=== PATIENT | male | born 1945 | race Caucasian/White ===

== ENCOUNTER 2017-03-15 19:58 | Emergency (ER) | payer MEDICARE, BC ==
[2017-03-15 20:05] VITALS: BP 141/82
--- NOTE | 2017-03-15 20:10 | UC ---
Minor Trauma HPI - HPI Summary HPI Summary: 71 year old male presents with complains of right elbow pain and right hip pain post fall. - History of Current Complaint Chief Complaint: UCTrauma Stated Complaint: ARM AND HIP INJURY Time Seen by Provider: 03/15/17 20:07 Hx Obtained From: Patient Onset/Duration: Sudden Onset Onset Of Pain: Immediate Severity Initially: Moderate Severity Currently: Moderate Pain Scale Used: 0-10 Numeric - 8 - Allergies/Home Medications Allergies/Adverse Reactions: Allergies Allergy/AdvReac Type Severity Reaction Status Date / Time No Known Allergies Allergy Verified 03/15/17 20:05 PMH/Surg Hx/FS Hx/Imm Hx Previously Healthy: Yes - Social History Alcohol Use: Occasionally Substance Use Type: None Smoking Status (MU): Never Smoked Tobacco Review of Systems Constitutional: Negative Skin: Negative Eyes: Negative ENT: Negative Respiratory: Negative Cardiovascular: Negative Gastrointestinal: Negative Genitourinary: Negative Motor: Negative Neurovascular: Negative Musculoskeletal: Other: - right elbow and right hip pain Neurological: Negative Psychological: Negative All Other Systems Reviewed And Are Negative: Yes Physical Exam Triage Information Reviewed: Yes Vital Signs: Initial Vital Signs Temp 37.1 C 03/15/17 20:02 Pulse 83 03/15/17 20:02 Resp 18 03/15/17 20:02 BP 141/82 03/15/17 20:02 Pulse Ox 99 03/15/17 20:02 Vital Signs Reviewed: Yes Eye Exam: Normal ENT Exam: Normal Dental Exam: Normal Neck exam: Normal Neck: Positive: 1 Respiratory Exam: Normal Cardiovascular Exam: Normal Abdominal Exam: Normal Musculoskeletal: Positive: Other: - right elbow and right hip pain Neurological Exam: Normal Psychological Exam: Normal Skin Exam: Normal Minor Trauma Course/Dx - Differential Dx/Diagnosis Provider Diagnoses: right radial head fracture. right hip pain Discharge - Discharge Plan Condition: Stable Disposition: HOME Prescriptions: Acetaminop/Codeine 30 MG TAB* [Tylenol/Codeine 30 MG TAB*] 1 tab PO Q8H PRN #9 tab MDD 3 PRN Reason: Pain Patient Education Materials: Elbow Fracture (ED), Hip Pain (ED) Referrals: Sivakumar Rashid MD [Primary Care Provider] - Cheko Velez MD [Medical Doctor] -
--- NOTE | 2017-03-15 20:58 | RAD ---
Indication: Right elbow pain after fall. 4 views of the right elbow demonstrates joint effusion in place. There is a fracture of the neck of the radial head. IMPRESSION: Fracture neck of the radial head with joint effusion.
--- NOTE | 2017-03-15 21:01 | RAD ---
Indication: Right hip pain. 2 views of the right hip demonstrates no fracture. Joint spaces well-preserved. IMPRESSION: No fracture of the right hip is noted.
== END 2017-03-15 21:32 | disposition home or self-care (01) ==
LOC: UCEAST 19:58
DX: S52.121A Displaced fracture of head of right radius, initial encounter for closed fracture (principal); M25.551 Pain in right hip; W19.XXXA Unspecified fall, initial encounter
CPT/HCPCS: 99212; G0463

== ENCOUNTER → 2017-09-22 08:13 | Day surgery (SDC) | payer MEDICARE, BC ==
[~2017-09-22 08:13] MED LIST: Aspirin EC TAB* 81 MG TAB.EC PO SCH; Atorvastatin* 10 MG TAB PO SCH; Fluticasone NASAL SPRAY 50MCG* 16 gm SPRAY BTL BOTH NARES SCH; Heparin 2 UNITS/ML IVPREMIX* 0 ML IV ONE; Heparin 2 UNITS/ML IVPREMIX* 1,000 ML IV ONE; Heparin(*) 1000 UNIT/ML 10 ML VIAL CATH LAB IV ONE; Ibuprofen TAB* 200 MG PO PRN; Iohexol 350 (CONTRAST) 200 ML MDV IV ONE; LOSARTAN POTASSIUM 25 MG PO SCH; Lidocaine 1% INJ* 10 MG/ML 30 ML SDV ONE; Midazolam* 1 MG/ML 10 ML VIAL (10 MG) ONE; NS 0.9% 1000 ML* 1,000 ML IV SCH; VERAPAMIL 2.5 MG/ML 2 ML VIAL ** 5 mg/2 ml ONE; WHEAT GERM OIL PO SCH; fentaNYL* 50 MCG/ML 2 ML VIAL (100 MCG VIAL) ONE; nitroGLYCERIN DRIP* 25,000 MCG/250 ML BTL ONE
[2017-09-22 13:12] VITALS: BP 101/76
--- NOTE | 2017-09-23 00:07 | CATH ---
CC: Dr. Lizette Miles; Dr. Sivakumar Rashid; Dr. Shekhar Bolanos MD, Department of Cardiovascular Surgery at [facility] in [place], [place] CARDIAC CATHETERIZATION REPORT: DATE OF PROCEDURE: 09/22/17 INDICATION FOR PROCEDURE: The patient with severe aortic stenosis, assess coronary anatomy in preparation for aortic valve surgery. PROCEDURE: Coronary arteriography. The patient was interviewed and examined in the holding area of the cardiac catheterization lab, where the risks and benefits were explained. He understood them and wished to proceed. The right radial artery was assessed under ultrasound guidance and found to be acceptable for an approach. EQUIPMENT UTILIZED: 1. A 6-Cymraes Glidesheath. 2. Diagnostic catheter, a 5-Cymraes TIG4 curve for the right coronary artery, left coronary artery was cannulated utilizing a 5-Cymraes 3.5 curve Ted left coronary diagnostic catheter. 3. Exchange wire, a 260-cm length Sandhu curved guidewire. MEDICATIONS: Given during the case included 1 mg of Versed for sedation. PRE-CATH LABORATORY RESULTS: Hemoglobin and hematocrit of 14 and 41 with a platelet count of 290,000. A BUN and creatinine of 16 and 0.9. INR of 0.9. Potassium 4.1. Sodium 136, chloride 100, bicarb 28. DESCRIPTION OF PROCEDURE: The patient was brought to the cardiovascular laboratory, where a formal time-out was performed. He was prepped and draped in a sterile fashion. The right radial artery was anesthetized with 1% lidocaine. The right radial artery was cannulated and a sheath was placed. Coronary arteriography was performed utilizing both the TIG4 curve and the JL 3.5 curve diagnostic catheter. Following this, the catheters were removed over the guidewire and the guidewire was removed and the sheath was removed and hemostasis was obtained with a Vasc Band. Total contrast used was 65 cc of Omnipaque dye. The radiation exposure included 7.1 minutes of fluoro time. The air kerma radiation was 633 milligray. The DAP radiation was 3616 microgray per metered square. RESULTS: CORONARY ARTERIOGRAPHY: A. Left Coronary Artery: 1. Left main. Widely patent. 2. Left anterior descending artery. The left anterior descending artery had no significant stenosis seen throughout the course of the vessel. Of note, it extended toward the apical region and became thin in nature in the distal portion and eventually go out by the apical region. It supplied a small first diagonal branch followed by a larger trifurcating mid diagonal branch. There was very mild 10% to 20% narrowing noted in its proximal portion. 3. Circumflex artery - a non-dominant vessel supplying a very thin first obtuse marginal branch followed by a moderate bifurcating mid obtuse marginal branch and ending in a low-lying posterior left ventricular branch. There were mild luminal irregularities noted in the proximal portion just past the bifurcating mid obtuse marginal branch. The circumflex had a narrowing of approximately 30% to 35%. B. Right coronary artery - a dominant vessel supplying the PDA and a small posterior left ventricular branch. There was a 40% mid lesion seen in the right coronary artery. OVERALL ASSESSMENT: Mild disease in the left system with [id number] disease in the mid right coronary artery as described above. This information was shared with Dr. Miles, the primary frame polisher involved with Mr. Spann and further recommendations will be made by Dr. Miles, who will be seeing the patient back in followup next week. [id number]/[facility] #: [id number] [facility]ITAL[facility]
== END | disposition home or self-care (01) ==
LOC: CHICATH 08:13
PROVIDERS: ATTEND Internal Medicine Cardiovascular Disease
DX: I35.0 Nonrheumatic aortic (valve) stenosis (principal); I25.10 Atherosclerotic heart disease of native coronary artery without angina pectoris; E78.2 Mixed hyperlipidemia; I10 Essential (primary) hypertension; Z87.891 Personal history of nicotine dependence
CPT/HCPCS: 76937; 93454; J1644; J2250; J3010

== ENCOUNTER 2017-11-17 11:02 | Observation (INO) | payer MEDICARE, BC ==
[2017-11-17] MEDS ORDERED: Acetaminophen TAB* 325 MG PO PRN (11:51)
[2017-11-17 12:17] LABS: ABS Basophils 0.1 10^3/ul (0-0.2); ABS Eosinophils 0.4 10^3/ul (0-0.6); ABS Lymphocytes 1.8 10^3/ul (1.0-4.8); ABS Nucleated RBC 0 10^3/ul; Eosinophil % 3.5 % (0-6); Hematocrit 40 % (42-52); Hemoglobin 13.8 g/dl (14.0-18.0); Lymphocyte % 17.8 % (25-47); Mean Corpuscular HGB Conc 34 g/dl (31-36); Mean Corpuscular Hemoglobin 31 pg (27-31); Mean Corpuscular Volume 92 fL (80-94); Mean Platelet Volume 7.3 um3 (7.4-10.4); Nucleated Red Blood Cells % 0; Platelet Count 357 10^3/ul (150-450); Red Blood Count 4.39 10^6/ul (4.00-5.40); Red Cell Distribution Width 14 % (10.5-15); White Blood Count 10.2 10^3/ul (3.5-10.8)
[2017-11-17 12:31] LABS: EGFR Non-African American 85.1 (>60)
[2017-11-17] MEDS: Enoxaparin(*) 80 MG/0.8 ML SYR SUBCUT SCH (13:59)
[2017-11-17] MEDS ORDERED: Warfarin TAB(*) 5 MG PO SCH (17:00)
[2017-11-17] MEDS ORDERED: HYDROcodone/ACETAMIN 5-325 MG* 1 TAB PO PRN (17:02)
[2017-11-17] MEDS ORDERED: Docusate CAP* 100 MG PO PRN (17:02)
[2017-11-17] MEDS ORDERED: Atorvastatin* 10 MG TAB PO SCH (21:00)
[2017-11-17] MEDS ORDERED: Losartan TAB* 25 MG PO SCH (21:00)
[2017-11-17] MEDS: Metoprolol Tartrate TAB* 25 MG PO SCH (22:16)
--- NOTE | 2017-11-18 01:30 | HP ---
CC: Sivakumar Rashid MD; Lizette Miles MD HISTORY AND PHYSICAL: DATE OF ADMISSION: 11/17/17 TIME OF MY EVALUATION: 1 p.m. PRIMARY CARE PROVIDER: Sivakumar Rashid MD OUTPATIENT REFERRING TALKBACK HOST: Lizette Miles MD TYPE OF ADMISSION: This is a direct admission. CHIEF COMPLAINT: Found to be in new-onset atrial fibrillation with altered mental status, status post aortic valve replacement at [facility] in [place] within the month. HISTORY OF PRESENT ILLNESS: Mr. Spann is a pleasant 72-year-old gentleman, who presents to the admissions department at [facility], referred by his outpatient benzol still operator, Dr. Lizette Miles. He was seeing Dr. Miles today and complained of feeling "foggy" since returning home from his cardiac surgery. There was no report of chest pain, shortness of breath, or other worrisome symptoms. He did endorse decreased energy. There was no overt dizziness nor was there lightheadedness. The patient was inquiring about cardiac rehab and the patient had an EKG in the office that demonstrated rate- controlled atrial fibrillation. The patient had a discussion with Dr. Miles, by report, about the merits of inpatient versus outpatient anticoagulation and for various reasons the patient opted to come into the hospital. In terms of his cardiac history, the patient was followed for progressive aortic stenosis until this August when his valve area was measured to be 0.6 cm squared. The patient was referred to [facility] in [place] for a valve replacement. This was done on 11/09/17 without complication. This was following an ischemic workup with cardiac catheterization that did not show any occlusions requiring intervention, though there was noted RCA territory disease. The patient tolerated the procedure well, but has not been thinking clearly since that time. The patient denies any fever, chills, skin rashes or lesions. He does not have any known contacts. No falls or head trauma. PAST MEDICAL HISTORY: 1. Paroxysmal atrial fibrillation as per current presentation. 2. Coronary atherosclerosis with 40% RCA as per pre-surgical (AVR) catheterization earlier in 2018 3. Benign prostatic hypertrophy without outflow obstruction - history of TURP 4. Mixed hyperlipidemia. 5. Essential hypertension. 6. Previously, severe aortic stenosis prior to aortic valve replacement. PAST SURGICAL HISTORY: Includes: 1. Tonsillectomy. 2. Vasectomy. 3. TURP by Dr. Mullins. 4. Urethral dilatation. 5. Most recent cardiac catheterization was on 09/22/17 prior to his aortic valve replacement that occurred on 11/09/17. 6. AVR in October 2017 (11/09/17) (#23 Magnalfredo pericardial). FAMILY HISTORY: Includes heart disease, hypertension, and cancer with his father dying secondary to heart disease at the age 84. Mother was at age 94 secondary to unknown causes and suffered from arthritis. 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 He is accompanied by his . He is . He is a nonsmoker. He quit when he was in 20s. He drinks several alcoholic beverages per week, but has not been drinking recently. The patient drinks coffee fairly regularly. He is active. REVIEW OF SYSTEMS: A review of 14 systems was accomplished at the bedside. This was largely negative except for the pertinent positives and negatives that were mentioned above in the HPI and past medical history. PHYSICAL EXAMINATION On admission: VITAL SIGNS: Temperature 98.6 degrees Fahrenheit, weight 190 pounds, blood pressure 110/65, respirations 18 and unlabored, heart rate low 60s and irregularly irregular. I do not appreciate a murmur. Sternal scar was appreciated on his chest exam. HEENT: Oropharynx is clear. Mucous membranes are moist. No posterior pharyngeal erythema or exudate. NECK: Supple. No elevated JVD appreciated. CHEST: Clear breath sounds anteriorly and posteriorly. No focal rales, rhonchi , wheezing. CARDIAC: Sternal scar appreciated. No LV heave. No fluctuance around the incision site. (site C/D/I) ABDOMEN: Soft and nontender. EXTREMITIES: Without clubbing, cyanosis, or edema. NEURO: No focal weakness, sensory, motor or proprioception component deficiencies. PSYCH: Normal affect. No acute anxiety or depression. The patient was A and O x3 when I discussed the reasons he was coming to the hospital. When I asked him about his prior career, he was extremely lucid and understood each of the last 5 [employer] presidents that he had an affiliation with. He made references to movies from the 1970s and was accurate in his description. He was witty and pleasant and interactive with his . I did not perceive "fogginess." ADMISSION DATA: White blood cell count 10.2, hemoglobin 13.8, platelets 357. Blood chemistries included a sodium of 132, potassium 4.5, chloride 98, bicarb 25, anion gap 9, BUN 20, creatinine 0.88, BUN to creatinine ratio is 22.7, glucose 97. AST and ALT are 28 and 31, alk phos 88. Troponin 0.05. Total protein is 6.9, albumin 4.1. EKG shows atrial fibrillation, rate controlled, no signs of active ischemia. IMPRESSION: Mr. Spann is a 72-year-old gentleman approximately 1 week status post aortic valve replacement at [facility]. He is now in atrial fibrillation and a subjective feeling of "fogginess" with decreased energy. PLAN BY MEDICAL PROBLEM: 1. New-onset atrial fibrillation of unclear duration. Mr. Spann is going to be anticoagulated as his CHADS2 score supports that decision. The patient will be given 1 mg per kg Lovenox twice daily and started on warfarin 5 mg p.o. q.h.s. with subsequent INR monitoring as per protocol. The patient will have Lovenox education and perhaps he will be comfortable self administering starting tomorrow. He is already rate controlled. No indication for additional rate control agents, though I will continue his outpatient metoprolol as it is controlling him adequately. We will continue outpatient medications as otherwise specified. 2. Coronary disease with nonocclusive disease in the RCA territory. Continue aspirin 81 mg daily as well as atorvastatin 30 mg by mouth at bedtime as well as ARB (losartan) 25 mg by mouth at bedtime as well as metoprolol 25 mg by mouth twice daily. 3. Subjective feeling of "fogginess." Conceivably, this might be secondary to the atrial fibrillation or alternatively a post bypass phenomenon that is encountered following cardiac surgeries (or "post-pump syndrome"). I will defer to the cardiology team to comment on this possibility. 4. The patient is full code. Surrogate decision maker is the patient's and she is present at the bedside throughout this admission. TIME SPENT: Total time taken to admit Mr. Spann was 70 minutes, greater than half that time was spent going over the history and physical, explaining the hospital plan of care to the patient. [id number]/[facility] #: [id number] [facility]
[2017-11-18] MEDS: Enoxaparin(*) 80 MG/0.8 ML SYR SUBCUT SCH (03:15)
[2017-11-18] MEDS ORDERED: Multivitamins/Minerals TAB PO SCH (09:00)
[2017-11-18] MEDS ORDERED: Folic Acid TAB* 1 MG PO SCH (09:00)
[2017-11-18] MEDS ORDERED: Ferrous Gluconate TAB* 324 MG TAB PO SCH (09:00)
[2017-11-18] MEDS ORDERED: Ascorbic Acid TAB* 500 MG PO SCH (09:00)
[2017-11-18] MEDS ORDERED: Aspirin EC TAB* 81 MG TAB.EC PO SCH (09:00)
[2017-11-18] MEDS: Metoprolol Tartrate TAB* 25 MG PO SCH (09:10)
--- NOTE | 2017-11-18 10:55 | CONSULT ---
Subjective Date of Service: 11/18/17 - CC: foggy sensation, found in atrial fibrillation post recent SAVR Interval History: See my outpatient notes from yesterday. 72 yo with severe underwent SAVR (#23 Magna pericardial bioprosthetic valve) on November 09, 2017 [facility], discharged Monday. Yesterday on routine post op office visit the patient noted he felt foggy, SBP was low at 98. ECG revealed A. fib, controlled ventricular rate. Discussions regarding outpatient lovenox loading led to some anxiety and the pt was having trouble reading. The patient was admitted for lovenox loading, observation and medication adjustments for BP. Overnight the patient is feeling much better. He is reading well. He hasn't ambulated this AM yet. No CP, no SOB, not dizzy in bed, no c/o of incisional pain. No orthopnea or PND. Family History: Findings - CAD, HTN (Father). Social History: Findings - Retired [employer], with a supportive , non smoker, no recent alcohol, pre surgury wine several nights / week. Past Medical History: Findings - (SAVR), HTN, CAD (40% RCA, MM), BPH, mixed dyslipidemia, Medications Active Medications: Acetaminophen (Tylenol Tab*) 650 mg PO Q4H PRN PRN Reason: FEVER/PAIN Hydrocodone Bitart/Acetaminophen ([place] 5-325 Tab*) 1 tab PO Q4H PRN PRN Reason: DISCOMFORT Ascorbic Acid (Vitamin C Tab*) 500 mg PO DAILY [facility] Last Admin: 11/18/17 09:10 Dose: 500 mg Aspirin (Aspirin Ec Tab*) 81 mg PO DAILY [facility] Last Admin: 11/18/17 09:10 Dose: 81 mg Atorvastatin Calcium (Lipitor*) 30 mg PO BEDTIME [facility] Last Admin: 11/17/17 22:16 Dose: 30 mg Docusate Sodium (Colace Cap*) 100 mg PO BID PRN PRN Reason: CONSTIPATION Enoxaparin Sodium (Lovenox(*)) 80 mg SUBCUT Q12H [facility] Last Admin: 11/18/17 03:15 Dose: 80 mg Ferrous Gluconate (Fergon Tab*) 324 mg PO DAILY [facility] Last Admin: 11/18/17 09:10 Dose: 324 mg Folic Acid (Folvite Tab*) 1 mg PO DAILY [facility] Last Admin: 11/18/17 09:10 Dose: 1 mg Losartan Potassium (Cozaar Tab*) 25 mg PO BEDTIME [facility] Last Admin: 11/17/17 22:16 Dose: 25 mg Metoprolol Tartrate (Lopressor Tab*) 25 mg PO BID [facility] Last Admin: 11/18/17 09:10 Dose: 25 mg Multivitamins/Minerals (Theragran/Minerals Tab*) 1 tab PO DAILY [facility] Last Admin: 11/18/17 09:10 Dose: 1 tab Warfarin Sodium (Coumadin Tab(*)) 5 mg PO DAILY@1700 [facility]; Protocol Last Admin: 11/17/17 16:42 Dose: 5 mg Home Medications: Aspirin [Aspirin Adult Low Dose] 81 mg PO DAILY 11/03/14 [History Confirmed ] Atorvastatin* [Lipitor*] 30 mg PO BEDTIME 11/03/14 [History Confirmed 11/17/17] Losartan Potassium [Cozaar] 25 mg PO BEDTIME 09/21/17 [History Confirmed ] Wheat Germ Oil 1 each PO DAILY 09/21/17 [History Confirmed 11/17/17] Ascorbic Acid TAB* [Vitamin C TAB*] 500 mg PO DAILY 11/17/17 [History Confirmed 11/17/17] Docusate Sodium [Col-Rite] 100 mg PO BID PRN 11/17/17 [History Confirmed ] Ferrous Gluconate TAB* [Fergon TAB*] 325 mg PO DAILY 11/17/17 [History Confirmed 11/17/17] Folic Acid TAB* [Folvite TAB*] 1 mg PO DAILY 11/17/17 [History Confirmed ] Hydrocodone/Acetaminophen [Hydrocodone/Acetaminophen 5-325 mg] 1 tab PO Q4H [History Confirmed 11/17/17] Metoprolol Tartrate TAB* [Lopressor TAB*] 25 mg PO BID 11/17/17 [History Confirmed 11/17/17] Multivitamins/Minerals TAB* [Theragran/minerals TAB*] 1 tab PO DAILY 11/17/17 [ History Confirmed 11/17/17] Review of Systems - Measurements Intake and Output: Intake and Output Last 24 Hours 06/21/18 06/22/18 06/23/18 06/24/18 04:59 04:59 04:59 04:59 Intake Total 560 1000 Output Total 750 1100 Balance -190 -100 Weight 187 lb Intake: Oral 560 1000 Output: Urine 750 1100 Other: Estimated Void Small # Bowel Movements 0 # Voids 3 - Review of Systems Constitutional Symptoms: Positive: Weakness, Other Negative: Weight Gain, Weight Loss, Fatigue, Fever, Night Sweats, Unexplained Falls HEENT: Positive: Normal, Dental Problems, Tinnitus, Sinus Problem, Other Negative: Change in Hearing, Vertigo Eyes: Positive: Change in Vision - foggy Pulmonary: Negative: Cough, Respiratory Distress, Shortness of Breath, Exercise Intolerance Cardiology: Positive: Chest Pain - nominal incisional Gastroenterology: Positive: Normal Genital - Urinary: Positive: Normal Neurology: Positive: Migraines, Change in Vision, Dizziness, Change in Balancing , Change in Coordination, Change in Memory, Change in Sphincter Function, Numbness\Paresthesiae, Hx of Stroke\TIA, Hx Seizures, Other Negative: Normal, Headaches, Diplopia, Change in Speech, Change in Walking, Unexplained Weakness Psychiatry: Positive: Normal Review of Systems Statement: All other review of systems negative, unless stated above. Objective Vital Signs: Temp Pulse Resp BP Pulse Ox 97.5 F 65 16 109/67 100 11/18/17 08:28 11/18/17 08:28 11/18/17 08:28 11/18/17 08:28 11/18/17 08:28 Oxygen Devices in Use Now: None Appearance: lean fit older gentleman, good color, in bed NAD Eyes: No Scleral Icterus, PERRLA Ears/Nose/Mouth/Throat: Clear Oropharnyx, Mucous Membranes Moist Neck: NL Appearance and Movements; NL JVP, Trachea Midline, No Thyroid Enlargement, Masses Respiratory: Symmetrical Chest Expansion and Respiratory Effort - Rare crackles bases Cardiovascular: - - S1S2 irregular, soft SM USB, no rub. Abdominal: NL Sounds; No Tenderness; No Distention, No Hepatosplenomegaly Skin: No Rash or Ulcers - incision between ribs right parasternal area healing well. Neurological: Alert and Oriented x 3, NL Gait Lines/Tubes/Other Access: Clean, Dry and Intact Peripheral IV Laboratory Results: 11/17/17 11:10 11/17/17 11:10 Total Bilirubin 0.60 mg/dL (0.2-1.0) 11/17/17 11:10 AST 28 U/L (13-39) 11/17/17 11:10 ALT 31 U/L (7-52) 11/17/17 11:10 Alkaline Phosphatase 88 U/L (34-104) 11/17/17 11:10 Total Protein 6.9 g/dL (6.4-8.9) 11/17/17 11:10 Albumin 4.1 g/dL (3.2-5.2) 11/17/17 11:10 Globulin 2.8 g/dL (2-4) 11/17/17 11:10 Albumin/Globulin Ratio 1.5 (1-3) 11/17/17 11:10 11/17/17 11:10 Troponin I 0.05 H* Laboratory Tests 11/17/17 11/17/17 11:10 11:10 WBC 10.2 RBC 4.39 Hgb 13.8 L Hct 40 L MCV 92 MCH 31 MCHC 34 RDW 14 Plt Count 357 MPV 7.3 L Neut % (Auto) 68.2 Lymph % (Auto) 17.8 L Turner % (Auto) 10.0 H Eos % (Auto) 3.5 Baso % (Auto) 0.5 Absolute Neuts (auto) 7.0 Absolute Lymphs (auto) 1.8 Absolute Monos (auto) 1.0 H Absolute Eos (auto) 0.4 Absolute Basos (auto) 0.1 Absolute Nucleated RBC 0 Nucleated RBC % 0 Sodium 132 L Potassium 4.5 Chloride 98 L Carbon Dioxide 25 Anion Gap 9 BUN 20 Creatinine 0.88 Est GFR ( Amer) 103.0 Est GFR (Non-Af Amer) 85.1 BUN/Creatinine Ratio 22.7 H Glucose 97 Calcium 9.2 Total Bilirubin 0.60 AST 28 ALT 31 Alkaline Phosphatase 88 Troponin I 0.05 H* Total Protein 6.9 Albumin 4.1 Globulin 2.8 Albumin/Globulin Ratio 1.5 EKG Data: Atrial fibrillation, controlled rate. Assessment/Plan 72 yo s/p SAVR November 09, 2017, feels foggy, low normal BP, afib uncertain duration. Lasix held yesterday, BP's a bit better and patient feeling better. The patient's has been trained in lovenox injection. AFIB: Lovenox until INR theraputic as outpatient. Coumodin loading with serial INR's as outpatient. Continue current metoprolol for rate control. Outpatient MACKENZIE guided cardioversion unless cardioverts on own. I had educated the patient and his that this is a not infrequent complication of open heart surgery, reassured. 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 -I recommend stopping Cozaar for now, allow higher BP. SAVR: I enrolled the patient in Cardiac Rehab. Will follow in office next week. Symptom limited progression in activity is fine.
[2017-11-18 12:17] LABS: INR 1.06 (0.77-1.02)
[2017-11-18 13:58] VITALS: BP 92/56
--- NOTE | 2017-11-19 18:50 | PN ---
Hospitalist Progress Note Date of Service: 11/18/17 . HOSPITALIST DISCHARGE NOTE: See dc instructions and summary by me. Patient stable for dc dc instructions reviewed with the patient at the bedside. DC patient home today.
--- NOTE | 2017-11-20 03:12 | DS ---
CC: Dr. Sivakumar Rashid; Dr. Lizette Miles * DISCHARGE SUMMARY: DATE OF ADMISSION: 11/17/17 DATE OF DISCHARGE: 11/18/17 STATUS DURING HOSPITALIZATION: Observation. PRIMARY CARE PROVIDER: Dr. Sivakumar Rashid, [facility] Internal Medicine. OUTPATIENT WILDLIFE SCIENCE PROFESSOR AND REFERRAL SOURCE FOR THIS DIRECT ADMISSION: Dr. Lizette Miles, [facility] Cardiology. 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 SECONDARY DIAGNOSES: 1. Coronary atherosclerosis with 40% right coronary artery occlusion as per pre - surgical catheterization in 2018. 2. Benign prostatic hypertrophy without outflow obstruction and history of TURP. 3. Mixed hyperlipidemia. 4. Hypertension. 5. Previously severe aortic stenosis prior to aortic valve replacement, which was accomplished in [facility] in [place] on 11/09/2017 without complication. 6. Aortic valve replacement with #23 Magna pericardial replacement. DISCHARGE MEDICATION REGIMEN: 1. Lovenox 80 mg subcu b.i.d. until Coumadin is therapeutic (INR goal 2 to 3). 2. Warfarin/Coumadin 5 mg q.h.s. 3. Stop Cozaar, which was at 25 mg daily. 4. Lipitor 30 mg by mouth at bedtime. 5. Aspirin 81 mg per month daily. 6. Vitamin C 500 mg by mouth daily. 7. Docusate 100 mg by mouth twice daily. 8. Ferrous gluconate 325 mg by mouth daily. 9. Folic acid 1 mg by mouth once daily. 10. Hydrocodone/acetaminophen 5/325 mg strength 1 tab by mouth every 4 hours p.r.n. pain. 11. Lopressor 25 mg by mouth twice daily. 12. Multivitamin with minerals 1 tab by mouth once daily. 13. Wheat germ oil 1 tablet by mouth once daily. HISTORY OF PRESENT ILLNESS AND HOSPITAL COURSE: Please see the H and P by me on 11/17/17 as well as the Cardiology consultation on 11/18/17. In brief, Mr. Spann is a 72-year-old gentleman who comes to the hospital feeling foggy since he came home from cardiac surgery recently. On 11/09/17, he had an aortic valve replacement at [facility] in [place]. The patient states he has not been thinking well since that time and describes the entire phenomenon as a "fogginess." The patient saw Dr. Miles in followup and she found that he was in atrial fibrillation, but was rate controlled. She discussed methods of anticoagulation and the patient insisted on coming to the hospital. He was accompanied by his . They are very concerned with the situation. There was some thought whether he should undergo a PRESS OPERATOR/TIA workup. In speaking with the patient, it became clear he did not have any focal deficits and was quite sharp and the feeling of fogginess was subjective. The feeling persisted from the post-op setting after surgery, he does feel it is getting better. 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 The patient does not warrant a neurologic workup per se. After Lovenox teaching, he was agreeable to going home and bridging to a Coumadin regimen. I have a followup INR scheduled for 11/22/17 at the [facility] with results to Dr. Miles for further warfarin management. He was given return to hospital instructions for any worrisome symptoms that occurred and were not immediately abated. TIME SPENT: Total time taken to discharge Mr. Spann was 45 minutes, greater than half of that time spent at the bedside going over the discharge instructions and explaining return to ED parameters and answering general questions about his situation. Followup should occur with Dr. Sivakumar Rashid sometime this or next week and Dr. Miles will be following up with the patient to set an outpatient appointment up. [id number]/[facility] #: [id number] AARTI
== END 2017-11-18 15:24 | disposition home or self-care (01) ==
LOC: MEDTELE 11:04
PROVIDERS: ADMIT Internal Medicine; ATTEND Internal Medicine
DX: I48.91 Unspecified atrial fibrillation (principal); R41.82 Altered mental status, unspecified; I25.10 Atherosclerotic heart disease of native coronary artery without angina pectoris; E78.5 Hyperlipidemia, unspecified; I10 Essential (primary) hypertension; Z79.01 Long term (current) use of anticoagulants; Z95.2 Presence of prosthetic heart valve; Z79.899 Other long term (current) drug therapy; Z87.891 Personal history of nicotine dependence; Z79.82 Long term (current) use of aspirin
CPT/HCPCS: 36415; 80053; 84484; 85025; 85610; 96372; A9270-GY; G0378; J1650

== ENCOUNTER 2018-04-19 10:54 | Inpatient (IN) | payer MEDICARE, BC ==
--- OUTSIDE RECORDS SUMMARY | 2018-04-19 11:02 | XMS REPORT | Continuity of Care Document ---
:1945 External Reference #:[id number] Author Name Elizabeth Morel Care Team Providers Name Role Phone Sivakumar Rashid MD Primary Care Physician Unavailable Payers Type Date Identification Numbers Payment Provider Subscriber Effective: Policy Number: [id number] Medicare Lucas Spann 2010 PayID: [id number] [address] [place] [address] Policy Number: [id number] [facility] Lucas Spann PayID: [id number] [address] [place] [address] Advance Directives Description No Information Available Problems Date Description Provider Status Onset: 11/17/2017 Paroxysmal atrial fibrillation Lizette Miles M.D. Active Note: post-op Onset: 01/03/2017 Aortic valve stenosis Carolyn Cantu M.D. Active Note: repaired, minimally invasive Onset: 01/03/2017 Essential hypertension Carolyn Cantu M.D. Active Onset: 07/10/2017 Mixed hyperlipidemia Sivakumar Rashid, Active Geno,FACP Onset: 07/10/2017 Benign prostatic hypertrophy Sivakumar Rashid, Active without outflow obstruction Geno,FACP Note: h/o TURP Onset: 11/07/2017 Coronary atherosclerosis iSvakumar Rashid M.D.,FACP Active Note: 40% RCA Onset: 11/17/2017 Heart valve replacement Lizette Miles M.D. Active Note: AVR Onset: 11/23/2017 Solitary nodule of lung Sivakumar Rashid M.D.,FACP Active Note: repeat CT 1 yr Onset: 04/18/2018 Traumatic subdural hemorrhage with Gentry Rangel M.D. Active loss of consciousness of 30 minutes or less, subsequent encounter Onset: 11/18/2017 Atrial fibrillation Aryan Zapata M.D. Inactive Inactive: 12/29/2017 Onset: 11/18/2017 Altered mental status Aryan Zapata M.D. Inactive Inactive: 12/29/2017 Family History Date Family Member(s) Problem(s) Comments General Heart Disease General Hypertension General Cancer : (age 84 Father due to Heart Years) Disease Mother Arthritis Siblings 2 Sibling at 3 months of Encephalitis Sibling healthy age 80 Social History Type Date Description Comments Sex Unknown Marital Status Lives With Occupation Retired [employer] ETOH Use 07/10/2017 Drinks 6 Alcoholic none since Beverages Per Week 11/09/2017 Tobacco Use Start: Unknown End: Patient is a former quit when in his Unknown smoker 20's Recreational Drug Use Denies Drug Use Smoking Status Reviewed: 04/18/18 Patient is a former quit when in his smoker 20's Exercise Type/Frequency cycling/spinning [employer] daily. machine workout for arms and legs. Cardiac rehab. Allergies, Adverse Reactions, Alerts Description No Known Drug Allergies Medications Medication Date Status Form Strength Qnty SIG Indications Ordering Provider Magnesium Oxide 03/27 Active Capsules 400mg 60cap 1 by mouth I48.0 Tequila S. s twice a day Maxi N.Mikey Acetaminophen 12/11 Active Tablets ER 650mg 45tab 1 tab by Sivakumar ER s mouth q4 D. [place], hours as M.D.,FACP needed pain Metoprolol 11/23 Active Tablets ER 25mg 90tab 1 tabs by Sivakumar Succinate 24HR s mouth every D. [place], day M.D.,FACP Atorvastatin 11/15 Active Tablets 20mg 135ta 1.5 tablets Lizette Calcium bs (30 mg) by [place], mouth every M.D. day Aspirin Low Active Tablets DR 81mg 1 by mouth Unknown Dose /0000 every day Eliquis 03/10 Hx Tablets 5mg 180ta 1 by mouth Lizette bs twice a day Bo Miles M.D. 04/10 Coricidin HBP 02/09 Hx Tablets 1 by mouth Sivakumar Cold & Flu /2017 four times a D. Rachid, - day as M.D.,[facility] 03/23 needed Amoxicillin 12/12 Hx Tablets 500mg 4tabs take 4 tablets by [place], - mouth 1 hour M.D. 04/17 before dental procedure Lovenox 11/23 Hx Solution 80mg/0.8M 10uni 0.8 I48.1 L ts milliliters [place], - injection M.D. 11/30 subq 12 hours Furosemide 11/14 Hx Tablets 40mg 1 by mouth Unknown every day x - 5 days 11/19 Hydrocodone-[place] 11/14 Hx Tablets 5-325mg 1 or 2 tabs Unknown taminophen by mouth - every 11/24 hours needed for pain Losartan 11/07 Hx Tablets 25mg 90tab 1 by mouth Sivakumar Potassium s every day Bo Kulkarni M.D.,[facility] 11/22 Atorvastatin 11/07 Hx Tablets 40mg 90tab take 1 Sivakumar Calcium s tablet by Cornelio Rashid, - mouth at Emily.Cornelio,[facility] 11/15 bedtime Saw [place] 11/07 Hx Capsules 450mg 1 by mouth Sivakumar twice a day Bo Kulkarni M.D.,[facility] 11/15 Losartan 07/10 Hx Tablets 50mg 90tab 1/2 by mouth Sivakumar Potassium s every day Bo Kulkarni M.D.,[facility] 11/07 Fluticasone 01/16 Hx Suspension 50mcg/Act 16gm 2 sprays H81.12 Oseas Propionate each nostril JULISA Alvarado - qd. 11/07 Enalapril Hx Tablets 20mg 90tab 1/2 by mouth Sivakumar Maleate / s twica a day Bo Kulkarni M.D.,[facility] 07/10 Ibuprofen Hx Capsules 200mg as needed Unknown / - 11/15 Atorvastatin Hx Tablets 20mg 135ta 1 1/2 tabs Amara Calcium / bs by mouth qPM Bo Grissom [employer] 11/07 Wheat Germ Oil Hx Oil daily Unknown / - 11/22 Ascorbic Acid Hx Tablets 500mg 1 by mouth Unknown / every day - 12/07 Theragran-M / Hx Tablets 1 by mouth Unknown / every day - 11/24 Docusate Sodium Hx Capsules 100mg 1 tab bid Unknown / - 12/07 Ferrous Hx Tablets 324(38Fe) take one Unknown Gluconate /0000 mg tablet by - mouth twice 12/07 Folic Acid Hx Tablets 1mg 1 by mouth Unknown / every day - 12/07 Cozaar Hx Tablets 25mg 1 by mouth Unknown / every day - 11/14 Metoprolol Hx Tablets 25mg 1 by mouth Unknown Tartrate /0000 twice a day - 11/23 Coumadin Hx Tablets 5mg 180ta as directed [facility] Bo Louie M.D.,FACP 03/10 Tab-A-Katelynn Hx Tablets 1 by mouth Unknown / every day - 12/29 Immunizations CPT Code Status Date Vaccine Lot # [id number] Given 03/10/2018 Influenza Virus Vaccine, Quadrivalent, Split, Preservative Free 18163 Given 03/06/2018 Influenza Virus Vaccine, Quadrivalent, Split, Preservative Free 11302 Given 07/10/2017 Pneumococcal Conjugate Vaccine 13 Valent For [id number] Intramuscular Use 00196 Given 04/04/2017 Influenza Virus Vaccine, Quadrivalent, Split, Preservative Free 64956 Given 11/28/2012 Tdap - Tetanus/Diptheria/Acellular Pertussis 53539 Given 06/02/2010 Pneumonia Vaccine Vital Signs Date Vital Result Comment 04/18/2018 1:16pm Height 73.75 inches 6'1.75" Heart Rate 80 /min BP Systolic Sitting 102 mmHg BP Diastolic Sitting 74 mmHg Body Temperature 97.9 F O2 % BldC Oximetry 99 % 04/16/2018 10:52am Height 73.75 inches 6'1.75" Weight 181.00 lb Heart Rate 85 /min BP Systolic Sitting 128 mmHg BP Diastolic Sitting 78 mmHg Body Temperature 97.4 F O2 % BldC Oximetry 97 % BMI (Body Mass Index) 23.4 kg/m2 03/27/2018 1:24pm Height 73.75 inches 6'1.75" Weight 178.00 lb Heart Rate 84 /min BP Systolic Sitting 140 mmHg Lue reg cuff BP Diastolic Sitting 90 mmHg Lue reg cuff BP Systolic Standing 135 mmHg Lue reg cuff BP Diastolic Standing 85 mmHg Lue reg cuff Respiratory Rate 18 /min BMI (Body Mass Index) 23.0 kg/m2 Ejection Fraction 55-60% 07/27/17 echo 2018 10:52am Height 73.75 inches 6'1.75" Weight 178.00 lb Heart Rate 75 /min BP Systolic Sitting 128 mmHg BP Diastolic Sitting 80 mmHg Body Temperature 97.0 F O2 % BldC Oximetry 98 % BMI (Body Mass Index) 23.0 kg/m2 03/13/2018 2:41pm Height 73.75 inches 6'1.75" Weight 179.00 lb Heart Rate 88 /min BP Systolic Sitting 122 mmHg BP Diastolic Sitting 64 mmHg BP Systolic Standing 132 mmHg BP Diastolic Standing 85 mmHg BP Systolic Recheck 128 mmHg BP Diastolic Recheck 68 mmHg Body Temperature 97.5 F O2 % BldC Oximetry 97 % BMI (Body Mass Index) 23.1 kg/m2 02/16/2018 1:51pm Height 73.75 inches 6'1.75" Weight 185.50 lb Heart Rate 70 /min BP Systolic Sitting 110 mmHg BP Diastolic Sitting 70 mmHg BP Systolic Standing 110 mmHg BP Diastolic Standing 70 mmHg BMI (Body Mass Index) 24.0 kg/m2 12/29/2017 4:30pm Height 73.75 inches 6'1.75" Weight 183.00 lb Heart Rate 77 /min BP Systolic Sitting 120 mmHg BP Diastolic Sitting 80 mmHg Body Temperature 97.5 F O2 % BldC Oximetry 98 % BMI (Body Mass Index) 23.7 kg/m2 12/07/2017 12:42pm Height 73.75 inches 6'1.75" Weight 179.00 lb Heart Rate 78 /min BP Systolic Sitting 140 mmHg Lue Reg Cuff BP Diastolic Sitting 82 mmHg Lue Reg Cuff BP Systolic Standing 140 mmHg BP Diastolic Standing 84 mmHg Respiratory Rate 16 /min BMI (Body Mass Index) 23.1 kg/m2 Ejection Fraction 55-60% 07/27/2017 echo 11/24/2017 8:11am Height 73.75 inches 6'1.75" Weight 183.00 lb Heart Rate 59 /min BP Systolic Sitting 130 mmHg sounds irregular BP Diastolic Sitting 60 mmHg sounds irregular Body Temperature 97.9 F O2 % BldC Oximetry 98 % BMI (Body Mass Index) 23.7 kg/m2 11/23/2017 9:37am Height 73.75 inches 6'1.75" Weight 183.00 lb w/o shoes Heart Rate 66 /min irregular BP Systolic Sitting 108 mmHg lue lg cuff BP Diastolic Sitting 54 mmHg lue lg cuff BP Systolic Standing 112 mmHg lue lg cuff BP Diastolic Standing 58 mmHg lue lg cuff Respiratory Rate 18 /min BMI (Body Mass Index) 23.7 kg/m2 Ejection Fraction 55-60% echo 07/27/17 11/17/2017 8:14am Height 73.75 inches 6'1.75" Weight 189.00 lb w/ shoes Heart Rate 66 /min BP Systolic Sitting 98 mmHg lue lg cuff BP Diastolic Sitting 50 mmHg lue lg cuff BP Systolic Standing 102 mmHg lue lg cuff BP Diastolic Standing 62 mmHg lue lg cuff Respiratory Rate 18 /min BMI (Body Mass Index) 24.4 kg/m2 Ejection Fraction 55-60% 07/27/2017 11/07/2017 2:30pm Height 73.75 inches 6'1.75" Weight 186.00 lb Heart Rate 79 /min BP Systolic Sitting 120 mmHg BP Diastolic Sitting 68 mmHg Body Temperature 98.1 F O2 % BldC Oximetry 96 % BMI (Body Mass Index) 24.0 kg/m2 09/29/2017 3:20pm Height 74 inches 6'2" Weight 187.00 lb w/o shoes Heart Rate 68 /min reg BP Systolic Sitting 122 mmHg Lue, reg cuff BP Diastolic Sitting 90 mmHg Lue, reg cuff BP Systolic Standing 126 mmHg Lue BP Diastolic Standing 90 mmHg Lue Respiratory Rate 16 /min BMI (Body Mass Index) 24.0 kg/m2 Ejection Fraction 55-60% as of 07/2017 echo 09/15/2017 9:09am Height 74 inches 6'2" Weight 187.00 lb w/o shoes Heart Rate 80 /min BP Systolic Sitting 134 mmHg lue reg cuff BP Diastolic Sitting 78 mmHg lue reg cuff BP Systolic Standing 134 mmHg lue reg cuff BP Diastolic Standing 78 mmHg lue reg cuff Respiratory Rate 18 /min BMI (Body Mass Index) 24.0 kg/m2 Ejection Fraction 55-60% echo 07/27/17 08/08/2017 8:25am Height 74 inches 6'2" Weight 184.00 lb Heart Rate 73 /min Respiratory Rate 15 /min Body Temperature 97.3 F Pain Level 0 BMI (Body Mass Index) 23.6 kg/m2 07/10/2017 1:48pm Weight 184.00 lb Heart Rate 78 /min BP Systolic Sitting 150 mmHg BP Diastolic Sitting 78 mmHg Body Temperature 96.7 F O2 % BldC Oximetry 98 % 05/09/2017 8:24am Height 74 inches 6'2" Weight 184.00 lb Heart Rate 70 /min BP Systolic 123 mmHg BP Diastolic 75 mmHg Respiratory Rate 15 /min Pain Level 1 BMI (Body Mass Index) 23.6 kg/m2 04/18/2017 8:33am Height 74 inches 6'2" Weight 184.00 lb Heart Rate 79 /min Respiratory Rate 15 /min Body Temperature 97.4 F Pain Level 0 BMI (Body Mass Index) 23.6 kg/m2 03/28/2017 8:22am Height 74 inches 6'2" Weight 184.00 lb Heart Rate 77 /min BP Systolic 127 mmHg BP Diastolic 72 mmHg Body Temperature 95.5 F BMI (Body Mass Index) 23.6 kg/m2 03/21/2017 8:23am Height 74 inches 6'2" Weight 184.00 lb Heart Rate 91 /min BP Systolic 126 mmHg BP Diastolic 81 mmHg Body Temperature 96.9 F BMI (Body Mass Index) 23.6 kg/m2 01/16/2017 1:54pm Height 74.25 inches 6'2.25" Weight 187.00 lb Heart Rate 78 /min BP Systolic Sitting 130 mmHg BP Diastolic Sitting 76 mmHg BP Systolic Standing 122 mmHg BP Diastolic Standing 70 mmHg Respiratory Rate 16 /min Pain Level 0 BMI (Body Mass Index) 23.8 kg/m2 01/05/2017 1:07pm Height 74.25 inches 6'2.25" Weight 186.50 lb Heart Rate 95 /min BP Systolic Sitting 124 mmHg BP Diastolic Sitting 78 mmHg Body Temperature 98.9 F O2 % BldC Oximetry 98 % BMI (Body Mass Index) 23.8 kg/m2 Results Test Date Facility Test Result H/L Range Note Basic Metabolic 03/27/2018 [facility] Sodium 133 mmol/L Low 135-[address] [place] [address] [phone] Potassium 4.9 mmol/L N 3.5-5.0 Chloride 100 mmol/L Low 101-111 Co2 Carbon Dioxide 28 mmol/L N 22-32 Anion Gap 5 mmol/L N 2-11 Glucose 107 mg/dL High 70-100 Blood Urea Nitrogen 17 mg/dL N 6-24 Creatinine 0.77 mg/dL N 0.67-1.17 BUN/Creatinine Ratio 22.1 High 8-20 Calcium 9.2 mg/dL N 8.6-10.3 Egfr Non- 99.0 >60 Egfr 119.8 >60 1 Laboratory test 03/27/2018 [facility] Magnesium 2.1 mg/dL N 1.9-2.7 finding [address] [place] [address] [phone] Protime W/ Inr 03/13/2018 [facility] Prothrombin Time 20.5 Inr 1.7 Protime W/ Inr 03/05/2018 [facility] House Prothrombin Time 36.6 Inr 3.0 Protime W/ Inr 02/15/2018 [facility] House Prothrombin Time 24.3 Inr 2.0 Protime W/ Inr 02/05/2018 [facility] In House Prothrombin Time 23.6 Inr 1.9 Protime W/ Inr 01/22/2018 [facility] In House Prothrombin Time 24.8 Inr 2.0 Protime W/ Inr 01/08/2018 [facility] In House Prothrombin Time 27.4 Inr 2.2 Protime W/ Inr 12/29/2017 [facility] In House Prothrombin Time 34.3 Inr 2.8 Protime W/ Inr 12/22/2017 [facility] In House Prothrombin Time 23.6 Inr 1.9 Lipid Profile 12/19/2017 [facility] Triglycerides 108 mg/dL 2 (Trig/Chol/HDL) [address] [place] [address] [phone] Cholesterol 171 mg/dL 3 HDL Cholesterol 58.5 mg/dL 4 LDL Cholesterol 91 mg/dL 5 Basic Metabolic Panel 12/19/2017 [facility] Sodium 138 mmol/L N 135-145 [address] [place] [address] [phone] Potassium 4.5 mmol/L N 3.5-5.0 Chloride 105 mmol/L N 101-111 Co2 Carbon Dioxide 26 mmol/L N 22-32 Anion Gap 7 mmol/L N 2-11 Glucose 97 mg/dL N 70-100 Blood Urea Nitrogen 19 mg/dL N 6-24 Creatinine 0.81 mg/dL N 0.67-1.17 BUN/Creatinine Ratio 23.5 High 8-20 Calcium 9.5 mg/dL N 8.6-10.3 Egfr Non- 93.7 >60 Egfr 113.3 >60 6 Protime W/ Inr 12/18/2017 [facility] In House Prothrombin Time 19.8 Inr 1.6 Protime W/ Inr 12/11/2017 [facility] In House Prothrombin Time 16.1 Inr 1.3 Protime W/ Inr 12/01/2017 [facility] House Prothrombin Time 27.1 Inr 2.2 Inr/Protime 11/30/2017 [facility] Inr 2.53 High 0.77-1.[address] [place] [address] [phone] Protime W/ Inr 11/28/2017 [facility] House Prothrombin Time 39.7 Inr 3.2 Protime W/ Inr 11/27/2017 [facility] Inr 4.3 Protime W/ Inr 11/24/2017 [facility] House Prothrombin Time 18.6 Inr 1.5 Inr/Protime 11/22/2017 [facility] Inr 1.44 High 0.77-1.[address] [place] [address] [phone] CBC Auto Diff 09/18/2017 [facility] White Blood 8.7 N 3.5- 10.[address] Count 10^3/[place] [address] [phone] Red Blood Count 4.96 10^6/uL N 4.0-5.4 Hemoglobin 15.2 g/dL N 14.0-18.0 Hematocrit 44 % N 42-52 Mean Corpuscular Volume 90 fL N 80-94 Mean Corpuscular Hemoglobin 31 pg N 27-31 Mean Corpuscular HGB Conc 34 g/dL N 31-36 Red Cell Distribution Width 14 % N 10.5-15 Platelet Count 275 10^3/uL N 150-450 Mean Platelet Volume 8.3 um3 N 7.4-10.4 Abs Neutrophils 4.8 10^3/uL N 1.5-7.7 Abs Lymphocytes 2.8 10^3/uL N 1.0-4.8 Abs Monocytes 0.8 10^3/uL N 0-0.8 Abs Eosinophils 0.3 10^3/uL N 0-0.6 Abs Basophils 0.1 10^3/uL N 0-0.2 Abs Nucleated RBC 0 10^3/uL Granulocyte % 54.5 % N 38-83 Lymphocyte % 32.3 % N 25-47 Monocyte % 9.2 % High 0-7 Eosinophil % 3.3 % N 0-6 Basophil % 0.7 % N 0-2 Nucleated Red Blood Cells % 0.1 Inr/Protime 09/18/2017 [facility] Inr 0.90 N 0.77-1.[address] [place] [address] [phone] Basic Metabolic 09/18/2017 [facility] Sodium 136 mmol/L Low 139-[address] [place] [address] [phone] Potassium 4.1 mmol/L N 3.5-5.0 Chloride 100 mmol/L Low 101-111 Co2 Carbon Dioxide 28 mmol/L N 22-32 Anion Gap 8 mmol/L N 2-11 Glucose 97 mg/dL N 70-100 Blood Urea Nitrogen 16 mg/dL N 6-24 Creatinine 0.95 mg/dL N 0.67-1.17 BUN/Creatinine Ratio 16.8 N 8-20 Calcium 9.5 mg/dL N 8.6-10.3 Egfr Non- 77.9 >60 Egfr 100.2 >60 8 Cath Panel 09/18/2017 [facility] Partial 29.9 seconds N 26.0- 36.[address] [place] [address] PTT [phone] Basic Metabolic 08/01/2017 [facility] Sodium 135 mmol/L N 133- [address] [place] [address] [phone] Potassium 4.4 mmol/L N 3.5-5.0 Chloride 103 mmol/L N 101-111 Co2 Carbon Dioxide 26 mmol/L N 22-32 Anion Gap 6 mmol/L N 2-11 Glucose 103 mg/dL High 70-100 Blood Urea Nitrogen 16 mg/dL N 6-24 Creatinine 0.89 mg/dL N 0.67-1.17 BUN/Creatinine Ratio 18.0 N 8-20 Calcium 9.7 mg/dL N 8.6-10.3 Egfr Non- 84.0 >60 Egfr 108.1 >60 9 Lipid Profile 08/01/2017 [facility] Triglycerides 69 mg/dL 10 (Trig/Chol/HDL) [address] [place] [address] [phone] Cholesterol 186 mg/dL 11 HDL Cholesterol 61.8 mg/dL 12 LDL Cholesterol 110 mg/dL 13 Laboratory 08/01/2017 [facility] Hepatitis C Nonreactive Nonreactive test finding [address] [place] [address] [phone] Lipid Profile 01/12/2017 [facility] Triglycerides 85 mg/dL N 14 (Trig/Chol/HD [address]) [place] [address] [phone] Cholesterol 187 mg/dL N 15 HDL Cholesterol 59.3 mg/dL N 16 LDL Cholesterol 111 mg/dL N 17 Liver Function 01/12/2017 [facility] Direct 0.10 mg/dL N 0.03- 0.18 Panel [facility] [place] [address] [phone] Indirect Bilirubin 0.6 mg/dL N 0.3-1.0 Comp Metabolic Panel 01/12/2017 [facility] Sodium 135 mmol/L N [address] [place] [address] [phone] Potassium 4.9 mmol/L N 3.5-5.0 Chloride 103 mmol/L N 101-111 Co2 Carbon Dioxide 27 mmol/L N 22-32 Anion Gap 5 mmol/L N 2-11 Glucose 106 mg/dL High 70-100 Blood Urea Nitrogen 17 mg/dL N 6-24 Creatinine 0.88 mg/dL N 0.67-1.17 BUN/Creatinine Ratio 19.3 N 8-20 Calcium 9.2 mg/dL N 8.6-10.3 Total Protein 6.5 g/dL N 6.4-8.9 Albumin 4.2 g/dL N 3.2-5.2 Globulin 2.3 g/dL N 2-4 Albumin/Globulin Ratio 1.8 N 1-3 Total Bilirubin 0.70 mg/dL N 0.2-1.0 Alkaline Phosphatase 30 U/L Low 34-104 Alt 14 U/L N 7-52 Ast 18 U/L N 13-39 Egfr Non- 85.4 N >60 Egfr 109.8 N >60 18 1 Because ethnic data is not always readily available, this report includes an eGFR for both -Americans and non- Americans. The National Kidney Disease Education Program (NKDEP) does not endorse the use of the MDRD equation for patients that are not between the ages of 18 and 70, are , have extremes of body size, muscle mass, or nutritional status, or are non- or non-. According to the National Kidney Foundation, irrespective of diagnosis, the stage of the disease is based on the level of kidney function: Stage Description GFR(mL/min/1.73 m(2)) 1 Kidney damage with normal or decreased GFR 90 2 Kidney damage with mild decrease in GFR 60-89 3 Moderate decrease in GFR 30-59 4 Severe decrease in GFR 15-29 5 Kidney failure <15 (or dialysis) 2 Desirable: <150 Borderline High: 150-199 High: 200-499 Very High: >500 3 Desirable: <200 Borderline High: 200-239 High: >239 4 Low: <40 Desirable: 40-60 High: >60 5 Desirable: <100 Near Optimal: 100-129 Borderline High: 130-159 High: 160-189 Very High: >189 6 Because ethnic data is not always readily available, this report includes an eGFR for both -Americans and non- Americans. The National Kidney Disease Education Program (NKDEP) does not endorse the use of the MDRD equation for patients that are not between the ages of 18 and 70, are , have extremes of body size, muscle mass, or nutritional status, or are non- or non-. According to the National Kidney Foundation, irrespective of diagnosis, the stage of the disease is based on the level of kidney function: Stage Description GFR(mL/min/1.73 m(2)) 1 Kidney damage with normal or decreased GFR 90 2 Kidney damage with mild decrease in GFR 60-89 3 Moderate decrease in GFR 30-59 4 Severe decrease in GFR 15-29 5 Kidney failure <15 (or dialysis) 7 CALL RESULTS 4590 [place] 4591 8 Because ethnic data is not always readily available, this report includes an eGFR for both -Americans and non- Americans. The National Kidney Disease Education Program (NKDEP) does not endorse the use of the MDRD equation for patients that are not between the ages of 18 and 70, are , have extremes of body size, muscle mass, or nutritional status, or are non- or non-. According to the National Kidney Foundation, irrespective of diagnosis, the stage of the disease is based on the level of kidney function: Stage Description GFR(mL/min/1.73 m(2)) 1 Kidney damage with normal or decreased GFR 90 2 Kidney damage with mild decrease in GFR 60-89 3 Moderate decrease in GFR 30-59 4 Severe decrease in GFR 15-29 5 Kidney failure <15 (or dialysis) 9 Because ethnic data is not always readily available, this report includes an eGFR for both -Americans and non- Americans. The National Kidney Disease Education Program (NKDEP) does not endorse the use of the MDRD equation for patients that are not between the ages of 18 and 70, are , have extremes of body size, muscle mass, or nutritional status, or are non- or non-. According to the National Kidney Foundation, irrespective of diagnosis, the stage of the disease is based on the level of kidney function: Stage Description GFR(mL/min/1.73 m(2)) 1 Kidney damage with normal or decreased GFR 90 2 Kidney damage with mild decrease in GFR 60-89 3 Moderate decrease in GFR 30-59 4 Severe decrease in GFR 15-29 5 Kidney failure <15 (or dialysis) 10 Desirable: <150 Borderline High: 150-199 High: 200-499 Very High: >500 11 Desirable: <200 Borderline High: 200-239 High: >239 12 Low: <40 Desirable: 40-60 High: >60 13 Desirable: <100 Near Optimal: 100-129 Borderline High: 130-159 High: 160-189 Very High: >189 14 Desirable <150 Borderline high 150-199 High 200-499 Very High >500 15 Desirable <200 Borderline high 200-239 High >239 16 Low <40 Desirable: 40-60 High: >60 17 Desirable: <100 mg/dL Near Optimal: 100-129 mg/dL Borderline High: 130-159 mg/dL High: 160-189 mg/dL Very High: >189 mg/dL 18 Because ethnic data is not always readily available, this report includes an eGFR for both -Americans and non- Americans. The National Kidney Disease Education Program (NKDEP) does not endorse the use of the MDRD equation for patients that are not between the ages of 18 and 70, are , have extremes of body size, muscle mass, or nutritional status, or are non- or non-. According to the National Kidney Foundation, irrespective of diagnosis, the stage of the disease is based on the level of kidney function: Stage Description GFR(mL/min/1.73 m(2)) 1 Kidney damage with normal or decreased GFR 90 2 Kidney damage with mild decrease in GFR 60-89 3 Moderate decrease in GFR 30-59 4 Severe decrease in GFR 15-29 5 Kidney failure <15 (or dialysis) Procedures Date Code Description Status 03/27/2018 34350 EKG Tracing & Interpretation Completed 12/07/2017 01651 EKG Tracing & Interpretation Completed 12/01/2017 81651 EKG, Interpretation Only Completed 11/30/2017 10980 Moderate Sedation Services; Same Phys Intl 15 Mins; PT Completed >=5 Years 11/30/2017 43457 Color Flow Doppler/Interp & Reprt Completed 11/30/2017 52279 Pulse Wave/Continuous-Interp.RPT Completed 11/30/2017 09681 Echocardiography, Transesophageal, Real Time W/Image 2D Completed W/W/O M-M 11/30/2017 60673 Cardioversion Completed 11/23/2017 73725 EKG Tracing & Interpretation Completed 11/17/2017 58695 EKG Tracing & Interpretation Completed 09/22/2017 81194 Cath PLMT&NJX L Ventriculog Img S&I Completed 09/15/2017 74043 EKG Tracing & Interpretation Completed 07/27/2017 53138 ECHO Transthorasic Realtime 2D W Doppler & Color Flow Completed Hosp 03/21/2017 06067 Closed Treatment Radial Head Or Neck FX W/O Completed Manipulation 01/16/2017 79850 EKG Tracing & Interpretation Completed 07/30/2015 40263 ECHO Transthoracic, Real-Time 2D With Doppler And Color Completed Flow 11/05/2014 [id number] Colonoscopy Completed 07/17/2013 38059 ECHO Transthoracic, Real-Time 2D With Doppler And Color Completed Flow Encounters Type Date Location Provider Dx Diagnosis Office Visit 03/27/2018 [facility] Tequila German, I48.0 Paroxysmal atrial 1:30p Of Holly N.PJamil fibrillation Z79.01 long-term (current) use of anticoagulants Z95.2 Presence of prosthetic heart valve E78.2 Mixed hyperlipidemia S06.5x1D Tra[facility] subdr hem w Loc of 30 minutes or less, subs Office Visit 2018 11:00a [facility] Sivakumar Grimes S06.5x1D [facility] sub[facility] Medicine Bo Rashid M.D.,FACP hem w Loc of [address] 30 minutes or less, subs I48.0 Paroxysmal atrial fibrillation Z79.01 long-term (current) use of anticoagulants Office Visit 03/13/2018 2:20p [facility] Grimes I48.0 Paroxysmal atrial Ced Rashid M.D.,FACP fibrillation [place] I10 Essential (primary) hypertension Office Visit 02/16/2018 2:00p [facility] Lizette Miles, Z95.2 Presence of Of [facility] Lora prosthetic heart valve I48.0 Paroxysmal atrial fibrillation J06.9 Acute upper respiratory infection, unspecified Office Visit 12/29/2017 4:40p [facility] Grimes I48.0 Paroxysmal atrial Ced Rashid M.D.,FACP fibrillation [address] Z79.01 long-term (current) use of anticoagulants E78.2 Mixed hyperlipidemia I10 Essential (primary) hypertension Office Visit 12/07/2017 1:00p [facility] Tequila Suárez Z95.2 Presence of Of [facility] German N[employer] 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 MChuck fibrillation Z95.2 Presence of prosthetic heart valve I35.0 Nonrheumatic aortic (valve) stenosis R42 Dizziness and giddiness Office Visit 11/18/2017 [facility] Lizette Miles, I48.91 Unspecified atrial 9:53a Of [facility] M.D. fibrillation Office Visit 11/18/2017 [facility] R41.82 Altered mental 9:29a dawson Martini M.D. status, Hospitalists unspecified I48.91 Unspecified atrial fibrillation Office Visit 11/17/2017 8:20a [facility] Lizette Miles, I35.0 Nonrheumatic Of [facility] AT [facility].D. aortic (valve) stenosis Z95.2 Presence of prosthetic heart valve R42 Dizziness and giddiness I10 Essential (primary) hypertension I25.10 Athscl heart disease of [place] coronary artery w/o ang pctrs I48.0 Paroxysmal atrial fibrillation Office Visit 11/17/2017 [facility] I48.91 Unspecified 9:28a dawson Martini M.D. atrial Hospitalists fibrillation R41.82 Altered mental status, unspecified I25.10 Athscl heart disease of [place] coronary artery w/o ang pctrs Z95.2 Presence of prosthetic heart valve Office Visit 09/29/2017 3:15p [facility] Tequila Suárez I35.0 Nonrheumatic Of [facility] Rossy German aortic (valve) stenosis I25.10 Athscl heart disease of [place] coronary artery w/o ang pctrs E78.5 Hyperlipidemia, unspecified I10 Essential (primary) hypertension Office Visit 09/15/2017 9:40a [facility] Lizette Miles, I35.0 Nonrheumatic [facility] ([facility] stenosis E78.5 Hyperlipidemia, unspecified I10 Essential (primary) hypertension Office Visit 08/08/2017 [facility] S52.124D Nondisp fx of head 8:30a Services Of MD Adriana of kobe, subs for Chuck clos fx w zoie heal Office Visit 07/10/2017 [facility] Internal Sivakumar Grimes I10 Essential 2:00p Medicine - [place] [place], (primary) Rd MChuck,FACP hypertension I35.0 Nonrheumatic aortic (valve) stenosis E78.5 Hyperlipidemia, unspecified R49.8 Other voice and resonance disorders Z23 Encounter for immunization Office Visit 01/16/2017 2:00p [facility] Internal Oseas Alvarado, JULISA R42 Dizziness and Medicine - [place] H81.12 Benign paroxysmal vertigo, left ear Office Visit 01/05/2017 1:00p [facility] Internal Amara I10 Essential (primary ) Medicine - JULISA Grissom hypertension [address] E78.5 Hyperlipidemia, unspecified Plan of Treatment Future Appointment(s):05/18/2018 11:50 am - Gentry Rangel M.D. at [facility]05/11/2018 11:30 am - Sivakumar Rashid M.D.,FACP at [facility] [address]/13/2018 1:00 pm - Sivakumar Rashid M.D.,FACP at [facility]2018 - Gentry Rangel M.D.S06.5x1D [facility] subdr hem w Loc of 30 minutes or less, subsNew Xrays:CT Brain Wo, Ordered : 04/18/18ollow up:After diagnostic study
--- OUTSIDE RECORDS SUMMARY | 2018-04-19 11:03 | XMS REPORT ---
:1945 External Reference #:[id number] Author Organization [employer] [facility] Address [address] [place] [address] [place] [address] Phone [phone] Care Team Providers Name Role Phone Sivakumar Rashid MD Primary Care Physician Unavailable Payers Type Date Identification Numbers Payment Provider Subscriber Medicare Primary Effective: Policy Number: Medicare Lucas Spann 2010 [id number] PayID: [id number] [address] [place] [address] Medigap Part B Policy Number: [id number] [facility] Lucas Spann PayID: [id number] [address] [place] [address] Problems Date Description Provider Status Onset: 11/17/2017 [...] Note: h/o TURP Onset: 11/07/2017 Coronary atherosclerosis Sivakumar Rashid M.D.,FACP Active Note: 40% RCA Onset: 11/17/2017 Heart valve replacement Lizette Miles M.D. Active Note: AVR Onset: 11/23/2017 Solitary nodule of lung Sivakumar Rashid M.D.,FACP Active Note: repeat CT 1 yr Onset: 11/18/2017 Atrial fibrillation Aryan Zapata M.D. [...] 80 Social History Type Date Description Comments Marital Status Lives With Occupation Retired [employer] ETOH Use 07/10/2017 Drinks 6 Alcoholic none since 11/09/2017 Beverages Per Week Smoking Patient is a former smoker quit when in his 20's Recreational Drug Use Denies Drug Use Daily Caffeine Comsumes on average 1 cup of decaff coffee per day Exercise Type/Frequency cycling/spinning [employer] daily. machine workout for arms and legs. Cardiac rehab. Allergies, Adverse Reactions, Alerts Date Description Reaction Status Severity Comments 01/05/2017 NKDA active Medications Medication Date Status Form Strength Qnty SIG Indications Ordering Provider Magnesium Oxide 03/27 Active Capsules 400mg 60cap 1 by mouth I48.0 Tequila S. s twice a day Rossy German Eliquis 03/10 Active Tablets 5mg 180ta 1 by mouth Lizette bs twice a day Geno Miles Amoxicillin 12/12 Active Tablets 500mg 4tabs take 4 Lizette tablets by [place], mouth 1 hour M.D. before dental procedure Acetaminophen 12/11 Active Tablets ER 650mg 45tab 1 tab by Sivakumar ER /2017 s mouth q4 D. Rachid, hours as M.D.,FACP needed pain Metoprolol 11/23 Active Tablets ER 25mg 90tab 1 tabs by Sivakumar Succinate ER 24HR s mouth every D. Bluebell, day M.D.,FACP Atorvastatin 11/15 Active Tablets 20mg 135ta 1.5 tablets Lizette bs (30 mg) by [place], mouth every M.D. day Aspirin Low 00/[address] 81mg 1 by mouth Unknown Dose /0000 every day Coricidin HBP 02/09 Hx Tablets 1 by mouth Sivakumar Cold & Flu /2017 four times a Leia. Rachid, - day as Geno,[facility] 03/23 needed Lovenox 11/23 Hx Solution 80mg/0.8M 10uni 0.8 I48.1 Lizette L ts milliliters Ginger, - injection MChuck 11/30 subq every 12 hours Furosemide 11/14 Hx Tablets 40mg 1 by mouth Unknown every day x - 5 days 11/19 Hydrocodone-[place] 11/14 Hx Tablets 5-325mg 1 or 2 tabs Unknown taminophen by mouth - every 11/24 hours as needed for pain Losartan 11/07 Hx Tablets 25mg 90tab 1 by mouth Sviakumar Potassium s every day Bo Kulkarni M.D.,[facility] 11/22 Atorvastatin 11/07 Hx Tablets 40mg 90tab take 1 Sivakumar Calcium s tablet by Cornelio Rashid, - mouth at Geno,[facility] 11/15 bedtime Saw [place] 11/07 Hx Capsules 450mg 1 by mouth Sivakumar twice a day Bo Kulkarni M.D.,[facility] 11/15 Losartan 07/10 Hx Tablets 50mg 90tab 1/2 by mouth Sivakumar Potassium s every day Bo Kulkarni M.D.,[facility] 11/07 Fluticasone 01/16 Hx Suspension 50mcg/Act 16gm 2 sprays H81.12 [place] Propionate each nostril JULISA Alvarado - qd. 11/07 Enalapril Hx Tablets 20mg 90tab 1/2 by mouth Sivakumar Maleate / s twica a day Bo Kulkarni M.D.,[facility] 07/10 Ibuprofen Hx Capsules 200mg as needed Unknown - 11/15 Atorvastatin Hx Tablets 20mg 135ta 1 1/2 tabs Amara Calcium / bs by mouth qPM Bo Grissom [employer] 11/07 Wheat Germ Oil Hx Oil daily Unknown / - 11/22 Ascorbic Acid Hx Tablets 500mg 1 by mouth Unknown / every day - 12/07 Theragran-M Hx Tablets 1 by mouth Unknown /0000 every day - 11/24 Docusate Sodium Hx Capsules 100mg 1 tab bid Unknown /0000 - 12/07 Ferrous Hx Tablets 324(38Fe) take one Unknown Gluconate /0000 mg tablet by - mouth twice 12/07 /2017 Folic Acid Hx Tablets 1mg 1 by mouth Unknown /0000 every day - 12/07 Cozaar Hx Tablets 25mg 1 by mouth Unknown /0000 every day - 11/14 Metoprolol Hx Tablets 25mg 1 by mouth Unknown Tartrate /0000 twice a day - 11/23 Coumadin Hx Tablets 5mg 180ta as directed Sivakumar /[facility] Bo Louie M.D.,FACP 03/10 Tab-A-Katelynn Hx Tablets 1 by mouth Unknown / every day - 12/29 Immunizations CPT Code Status Date Vaccine Lot # [id number] Given 03/10/2018 Influenza Virus Vaccine, Quadrivalent, Split, Preservative Free 16318 Given 03/06/2018 Influenza Virus Vaccine, Quadrivalent, Split, Preservative Free 59991 Given 07/10/2017 Pneumococcal Conjugate Vaccine 13 Valent For [id number] Intramuscular Use 67212 Given 04/04/2017 Influenza Virus Vaccine, Quadrivalent, Split, Preservative Free 11173 Given 11/28/2012 Tdap - Tetanus/Diptheria/Acellular Pertussis 67922 Given 06/02/2010 Pneumonia Vaccine Vital Signs Date Vital Result Comment 03/27/2018 Height 73.75 inches 6'1.75" Weight 178.00 lb Heart Rate 84 /min BP Systolic Sitting 140 mmHg Lue reg cuff BP Diastolic Sitting 90 mmHg Lue reg cuff BP Systolic Standing 135 mmHg Lue reg cuff BP Diastolic Standing 85 mmHg Lue reg cuff Respiratory Rate 18 /min BMI (Body Mass Index) 23.0 kg/m2 Ejection Fraction 55-60% 07/27/17 echo 2018 Height 73.75 inches 6'1.75" Weight 178.00 lb Heart Rate 75 /min BP Systolic Sitting 128 mmHg BP Diastolic Sitting 80 mmHg Body Temperature 97.0 F O2 % BldC Oximetry 98 % BMI (Body Mass Index) 23.0 kg/m2 03/13/2018 Height 73.75 inches 6'1.75" Weight 179.00 lb Heart Rate 88 /min BP Systolic Sitting 122 mmHg BP Diastolic Sitting 64 mmHg BP Systolic Standing 132 mmHg BP Diastolic Standing 85 mmHg BP Systolic Recheck 128 mmHg BP Diastolic Recheck 68 mmHg Body Temperature 97.5 F O2 % BldC Oximetry 97 % BMI (Body Mass Index) 23.1 kg/m2 02/16/2018 Height 73.75 inches 6'1.75" Weight 185.50 lb Heart Rate 70 /min BP Systolic Sitting 110 mmHg BP Diastolic Sitting 70 mmHg BP Systolic Standing 110 mmHg BP Diastolic Standing 70 mmHg BMI (Body Mass Index) 24.0 kg/m2 12/29/2017 Height 73.75 inches 6'1.75" Weight 183.00 lb Heart Rate 77 /min BP Systolic Sitting 120 mmHg BP Diastolic Sitting 80 mmHg Body Temperature 97.5 F O2 % BldC Oximetry 98 % BMI (Body Mass Index) 23.7 kg/m2 12/07/2017 Height 73.75 inches 6'1.75" Weight 179.00 lb Heart Rate 78 /min BP Systolic Sitting 140 mmHg Lue Reg Cuff BP Diastolic Sitting 82 mmHg Lue Reg Cuff BP Systolic Standing 140 mmHg BP Diastolic Standing 84 mmHg Respiratory Rate 16 /min BMI (Body Mass Index) 23.1 kg/m2 Ejection Fraction 55-60% 07/27/2017 echo 11/24/2017 Height 73.75 inches 6'1.75" Weight 183.00 lb Heart Rate 59 /min BP Systolic Sitting 130 mmHg sounds irregular BP Diastolic Sitting 60 mmHg sounds irregular Body Temperature 97.9 F O2 % BldC Oximetry 98 % BMI (Body Mass Index) 23.7 kg/m2 11/23/2017 Height 73.75 inches 6'1.75" Weight 183.00 lb w/o shoes Heart Rate 66 /min irregular BP Systolic Sitting 108 mmHg lue lg cuff BP Diastolic Sitting 54 mmHg lue lg cuff BP Systolic Standing 112 mmHg lue lg cuff BP Diastolic Standing 58 mmHg lue lg cuff Respiratory Rate 18 /min BMI (Body Mass Index) 23.7 kg/m2 Ejection Fraction 55-60% echo 07/27/17 11/17/2017 Height 73.75 inches 6'1.75" Weight 189.00 lb w/ shoes Heart Rate 66 /min BP Systolic Sitting 98 mmHg lue lg cuff BP Diastolic Sitting 50 mmHg lue lg cuff BP Systolic Standing 102 mmHg lue lg cuff BP Diastolic Standing 62 mmHg lue lg cuff Respiratory Rate 18 /min BMI (Body Mass Index) 24.4 kg/m2 Ejection Fraction 55-60% 07/27/2017 11/07/2017 Height 73.75 inches 6'1.75" Weight 186.00 lb Heart Rate 79 /min BP Systolic Sitting 120 mmHg BP Diastolic Sitting 68 mmHg Body Temperature 98.1 F O2 % BldC Oximetry 96 % BMI (Body Mass Index) 24.0 kg/m2 09/29/2017 Height 74 inches 6'2" Weight 187.00 lb w/o shoes Heart Rate 68 /min reg BP Systolic Sitting 122 mmHg Lue, reg cuff BP Diastolic Sitting 90 mmHg Lue, reg cuff BP Systolic Standing 126 mmHg Lue BP Diastolic Standing 90 mmHg Lue Respiratory Rate 16 /min BMI (Body Mass Index) 24.0 kg/m2 Ejection Fraction 55-60% as of 07/2017 echo 09/15/2017 Height 74 inches 6'2" Weight 187.00 lb w/o shoes Heart Rate 80 /min BP Systolic Sitting 134 mmHg lue reg cuff BP Diastolic Sitting 78 mmHg lue reg cuff BP Systolic Standing 134 mmHg lue reg cuff BP Diastolic Standing 78 mmHg lue reg cuff Respiratory Rate 18 /min BMI (Body Mass Index) 24.0 kg/m2 Ejection Fraction 55-60% echo 07/27/17 08/08/2017 Height 74 inches 6'2" Weight 184.00 lb Heart Rate 73 /min Respiratory Rate 15 /min Body Temperature 97.3 F Pain Level 0 BMI (Body Mass Index) 23.6 kg/m2 07/10/2017 Weight 184.00 lb Heart Rate 78 /min BP Systolic Sitting 150 mmHg BP Diastolic Sitting 78 mmHg Body Temperature 96.7 F O2 % BldC Oximetry 98 % 05/09/2017 Height 74 inches 6'2" Weight 184.00 lb Heart Rate 70 /min BP Systolic 123 mmHg BP Diastolic 75 mmHg Respiratory Rate 15 /min Pain Level 1 BMI (Body Mass Index) 23.6 kg/m2 04/18/2017 Height 74 inches 6'2" Weight 184.00 lb Heart Rate 79 /min Respiratory Rate 15 /min Body Temperature 97.4 F Pain Level 0 BMI (Body Mass Index) 23.6 kg/m2 03/28/2017 Height 74 inches 6'2" Weight 184.00 lb Heart Rate 77 /min BP Systolic 127 mmHg BP Diastolic 72 mmHg Body Temperature 95.5 F BMI (Body Mass Index) 23.6 kg/m2 03/21/2017 Height 74 inches 6'2" Weight 184.00 lb Heart Rate 91 /min BP Systolic 126 mmHg BP Diastolic 81 mmHg Body Temperature 96.9 F BMI (Body Mass Index) 23.6 kg/m2 01/16/2017 Height 74.25 inches 6'2.25" Weight 187.00 lb Heart Rate 78 /min BP Systolic Sitting 130 mmHg BP Diastolic Sitting 76 mmHg BP Systolic Standing 122 mmHg BP Diastolic Standing 70 mmHg Respiratory Rate 16 /min Pain Level 0 BMI (Body Mass Index) 23.8 kg/m2 01/05/2017 Height 74.25 inches 6'2.25" Weight 186.50 lb Heart Rate 95 /min BP Systolic Sitting 124 mmHg BP Diastolic Sitting 78 mmHg Body Temperature 98.9 F O2 % BldC Oximetry 98 % BMI (Body Mass Index) 23.8 kg/m2 Results Test Date Test Result H/L Range Note Protime W/ Inr 03/13/2018 Prothrombin Time 20.5 Inr 1.7 Protime W/ Inr 03/05/2018 Prothrombin Time 36.6 Inr 3.0 Protime W/ Inr 02/15/2018 Prothrombin Time 24.3 Inr 2.0 Protime W/ Inr 02/05/2018 Prothrombin Time 23.6 Inr 1.9 Protime W/ Inr 01/22/2018 Prothrombin Time 24.8 Inr 2.0 Protime W/ Inr 01/08/2018 Prothrombin Time 27.4 Inr 2.2 Protime W/ Inr 12/29/2017 Prothrombin Time 34.3 Inr 2.8 Protime W/ Inr 12/22/2017 Prothrombin Time 23.6 Inr 1.9 Lipid Profile (Trig/Chol/HDL) 12/19/2017 Triglycerides 108 mg/dL 1 Cholesterol 171 mg/dL 2 HDL Cholesterol 58.5 mg/dL 3 LDL Cholesterol 91 mg/dL 4 Basic Metabolic Panel 12/19/2017 Sodium 138 mmol/L 135-145 Potassium 4.5 mmol/L 3.5-5.0 Chloride 105 mmol/L 101-111 Co2 Carbon Dioxide 26 mmol/L 22-32 Anion Gap 7 mmol/L 2-11 Glucose 97 mg/dL 70-100 Blood Urea Nitrogen 19 mg/dL 6-24 Creatinine 0.81 mg/dL 0.67-1.17 BUN/Creatinine Ratio 23.5 High 8-20 Calcium 9.5 mg/dL 8.6-10.3 Egfr Non- 93.7 >60 Egfr 113.3 >60 5 Protime W/ Inr 12/18/2017 Prothrombin Time 19.8 Inr 1.6 Protime W/ Inr 12/11/2017 Prothrombin Time 16.1 Inr 1.3 Protime W/ Inr 12/01/2017 Prothrombin Time 27.1 Inr 2.2 Inr/Protime 11/30/2017 Inr 2.53 High 0.77-1.02 6 Protime W/ Inr 11/28/2017 Prothrombin Time 39.7 Inr 3.2 Protime W/ Inr 11/27/2017 Inr 4.3 Protime W/ Inr 11/24/2017 Prothrombin Time 18.6 Inr 1.5 Inr/Protime 11/22/2017 Inr 1.44 High 0.77-1.02 Cath Panel 09/18/2017 Partial Thrombo Time 29.9 seconds 26.0-36.3 PTT Basic Metabolic Panel 09/18/2017 Sodium 136 mmol/L Low 139-145 Potassium 4.1 mmol/L 3.5-5.0 Chloride 100 mmol/L Low 101-111 Co2 Carbon Dioxide 28 mmol/L 22-32 Anion Gap 8 mmol/L 2-11 Glucose 97 mg/dL 70-100 Blood Urea Nitrogen 16 mg/dL 6-24 Creatinine 0.95 mg/dL 0.67-1.17 BUN/Creatinine Ratio 16.8 8-20 Calcium 9.5 mg/dL 8.6-10.3 Egfr Non- 77.9 >60 Egfr 100.2 >60 7 Inr/Protime 09/18/2017 Inr 0.90 0.77-1.02 CBC Auto Diff 09/18/2017 White Blood Count 8.7 10^3/uL 3.5-10.8 Red Blood Count 4.96 10^6/uL 4.0-5.4 Hemoglobin 15.2 g/dL 14.0-18.0 Hematocrit 44 % 42-52 Mean Corpuscular Volume 90 fL 80-94 Mean Corpuscular Hemoglobin 31 pg 27-31 Mean Corpuscular HGB Conc 34 g/dL 31-36 Red Cell Distribution Width 14 % 10.5-15 Platelet Count 275 10^3/uL 150-450 Mean Platelet Volume 8.3 um3 7.4-10.4 Abs Neutrophils 4.8 10^3/uL 1.5-7.7 Abs Lymphocytes 2.8 10^3/uL 1.0-4.8 Abs Monocytes 0.8 10^3/uL 0-0.8 Abs Eosinophils 0.3 10^3/uL 0-0.6 Abs Basophils 0.1 10^3/uL 0-0.2 Abs Nucleated RBC 0 10^3/uL Granulocyte % 54.5 % 38-83 Lymphocyte % 32.3 % 25-47 Monocyte % 9.2 % High 0-7 Eosinophil % 3.3 % 0-6 Basophil % 0.7 % 0-2 Nucleated Red Blood Cells % 0.1 Laboratory test finding 08/01/2017 Hepatitis C Antibody Nonreactive Nonreactive Lipid Profile 08/01/2017 Triglycerides 69 mg/dL 8 (Trig/Chol/HDL) Cholesterol 186 mg/dL 9 HDL Cholesterol 61.8 mg/dL 10 LDL Cholesterol 110 mg/dL 11 Basic Metabolic Panel 08/01/2017 Sodium 135 mmol/L 133-145 Potassium 4.4 mmol/L 3.5-5.0 Chloride 103 mmol/L 101-111 Co2 Carbon Dioxide 26 mmol/L 22-32 Anion Gap 6 mmol/L 2-11 Glucose 103 mg/dL High 70-100 Blood Urea Nitrogen 16 mg/dL 6-24 Creatinine 0.89 mg/dL 0.67-1.17 BUN/Creatinine Ratio 18.0 8-20 Calcium 9.7 mg/dL 8.6-10.3 Egfr Non- 84.0 >60 Egfr 108.1 >60 12 Comp Metabolic Panel 01/12/2017 Sodium 135 mmol/L 133-145 Potassium 4.9 mmol/L 3.5-5.0 Chloride 103 mmol/L 101-111 Co2 Carbon Dioxide 27 mmol/L 22-32 Anion Gap 5 mmol/L 2-11 Glucose 106 mg/dL High 70-100 Blood Urea Nitrogen 17 mg/dL 6-24 Creatinine 0.88 mg/dL 0.67-1.17 BUN/Creatinine Ratio 19.3 8-20 Calcium 9.2 mg/dL 8.6-10.3 Total Protein 6.5 g/dL 6.4-8.9 Albumin 4.2 g/dL 3.2-5.2 Globulin 2.3 g/dL 2-4 Albumin/Globulin Ratio 1.8 1-3 Total Bilirubin 0.70 mg/dL 0.2-1.0 Alkaline Phosphatase 30 U/L Low 34-104 Alt 14 U/L 7-52 Ast 18 U/L 13-39 Egfr Non- 85.4 >60 Egfr 109.8 >60 13 Liver Function Panel 01/12/2017 Direct Bilirubin 0.10 mg/dL 0.03-0.18 Indirect Bilirubin 0.6 mg/dL 0.3-1.0 Lipid Profile (Trig/Chol/HDL) 01/12/2017 Triglycerides 85 mg/dL 14 Cholesterol 187 mg/dL 15 HDL Cholesterol 59.3 mg/dL 16 LDL Cholesterol 111 mg/dL 17 1 Desirable: <150 Borderline High: 150-199 High: 200-499 Very High: >500 2 Desirable: <200 Borderline High: 200-239 High: >239 3 Low: <40 Desirable: 40-60 High: >60 4 Desirable: <100 Near Optimal: 100-129 Borderline High: 130-159 High: 160-189 Very High: >189 5 Because ethnic data is not always readily [...] 15-29 5 Kidney failure <15 (or dialysis) 6 CALL RESULTS 4590 [place] 4591 7 Because ethnic data is not always readily [...] 15-29 5 Kidney failure <15 (or dialysis) 8 Desirable: <150 Borderline High: 150-199 High: 200-499 Very High: >500 9 Desirable: <200 Borderline High: 200-239 High: >239 10 Low: <40 Desirable: 40-60 High: >60 11 Desirable: <100 Near Optimal: 100-129 Borderline High: 130-159 High: 160-189 Very High: >189 12 Because ethnic data is not always readily [...] 15-29 5 Kidney failure <15 (or dialysis) 13 Because ethnic data is not always readily [...] 15-29 5 Kidney failure <15 (or dialysis) 14 Desirable <150 Borderline high 150-199 High 200-499 Very High >500 15 Desirable <200 Borderline high 200-239 High >239 16 Low <40 Desirable: 40-60 High: >60 17 Desirable: <100 mg/dL Near Optimal: 100-129 mg/dL Borderline High: 130-159 mg/dL High: 160-189 mg/dL Very High: >189 mg/dL Procedures Date CPT Code Description Status 03/27/2018 80844 EKG Tracing & Interpretation Completed 12/07/2017 66456 EKG Tracing & Interpretation Completed 11/30/2017 91663 Moderate Sedation Services; Same Phys Intl 15 Mins; PT Completed >=5 Years 11/30/2017 69155 Color Flow Doppler/Interp & Reprt Completed 11/30/2017 03743 Pulse Wave/Continuous-Interp.RPT Completed 11/30/2017 52227 Echocardiography, Transesophageal, Real Time W/Image 2D Completed W/W/O M-M 11/30/2017 97492 Cardioversion Completed 11/23/2017 85776 EKG Tracing & Interpretation Completed 11/17/2017 83702 EKG Tracing & Interpretation Completed 09/22/2017 31680 Cath PLMT&NJX L Ventriculog Img S&I Completed 09/15/2017 26305 EKG Tracing & Interpretation Completed 07/27/2017 93289 ECHO Transthorasic Realtime 2D W Doppler & Color Flow Completed Hosp 03/21/2017 29718 Closed Treatment Radial Head Or Neck FX W/O Completed Manipulation 01/16/2017 75950 EKG Tracing & Interpretation Completed 07/30/2015 89667 ECHO Transthoracic, Real-Time 2D With Doppler And Color Completed Flow 11/05/2014 Colonoscopy Completed 07/17/2013 80477 ECHO Transthoracic, Real-Time 2D With Doppler And Color Completed Flow Encounters Type Date Location Provider CPT E/M Dx Office Visit 03/27/2018 [facility] Of Tequila German, N.P. 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 92392 Z95.2 [facility] I48.0 J06.9 Office Visit 12/29/2017 4:40p [facility] Sivakumar Rashid, 07669 I48.0 - [place] Cruz Lora,FACP Z79.01 E78.2 I10 Office Visit 12/07/2017 1:00p [facility] Tequila German, 43706NST Z95.2 Internet Marketing Intern N.P. I48.0 Z79.01 I10 Office Visit 11/24/2017 8:40a [facility] Sivakumar Rashid, 31490 I48.1 - [place] Cruz Lora,FACP Z95.2 Z79.01 R42 Office Visit 11/23/2017 9:40a [facility] Of Lizette Mlies M.D. 34806 I48.1 Internet Marketing [place] [facility] Z95.2 I35.0 R42 Office Visit 11/18/2017 9:53a [facility] Of Lizette Miles M.D. 84000 I48.91 Internet Marketing Intern Office Visit 11/18/2017 9:29a [facility], Aryan Zapata, 41411 R41.82 Hospitalfermin Lora I48.91 Office Visit 11/17/2017 8:20a [facility] Anny Miles M.D. 62893 I35.0 Internet Marketing Intern AT [facility] Z95.2 R42 I10 I25.10 I48.0 Office Visit 11/17/2017 9:28a [facility] Aryan Zap[facility], 59174 I48.91 Assoc, Hospitalists Geno R41.82 I25.10 Z95.2 Office Visit 09/29/2017 3:15p [facility] Of Tequila German, 00520GIG I35.0 Internet Marketing Intern N.P. I25.10 E78.5 I10 Office Visit 09/15/2017 9:40a [facility] Of Lizette Miles M.D. 22544 I35.0 [facility] AT [facility] E78.5 I10 Office Visit 08/08/2017 8:30a [facility] [place] [address] S52.124D Of Chuck Wright MD Office Visit 07/10/2017 2:00p [facility] Sivakumar Rashid, 25968 I10 - Tbgail Arroyo M.D.,FACP I35.0 E78.5 R49.8 Z23 Office Visit 01/16/2017 2:00p [facility] [place] [address] R42 [place] H81.12 Office Visit 01/05/2017 1:00p [facility] [place] [address] E78.5 Plan of Care Future Appointment(s):04/27/2018 10:00 am - Tequila German, N.P. at [facility]03/28/2018 11:00 am - Sivakumar Rahsid M.D.,FACP at [facility] - [address]/13/2018 1:00 pm - Sivakumar Rashid M.D.,FACP at [facility]03/27/2018 - Tequila German N.P.I48.0 Paroxysmal atrial fibrillationNew Medication:Magnesium Oxide 400 mgRecommendations:Continue toprol 25mg daily Contiue Eliquis 2.5mg 2x daily Start Mg supplements. 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 from [facility]. 1-2mo OV Tequila on a day LS in the office still plan on 07/2018 LOCKSTITCH WAISTBAND SETTER or MDRecommendations:F/u CT on 04/02
--- OUTSIDE RECORDS SUMMARY | 2018-04-19 11:03 | XMS REPORT ---
:1945 External Reference #:[id number] Author Organization [employer] Address [address] [facility] [place] [address] [place] [address] Phone [phone] Care Team Providers Name Role Phone Sivakumar Rashid MD Primary Care Physician Unavailable Payers Type Date Identification Numbers Payment Provider Subscriber Medicare Primary Effective: Policy Number: Medicare Lucas Spann 2010 [id number] PayID: [id number] [address] [place] [address] Medigap Part B Policy Number: [id number] [facility] Lucas Spann PayID: [id number] [address] [place] [address] Problems Date Description Provider Status Onset: 11/17/2017 [...] Comments Marital Status Lives With Occupation Retired [employer] ETOH Use 07/10/2017 Drinks 6 Alcoholic none [...] Form Strength Qnty SIG Indications Ordering Provider Eliquis 03/10 Active Tablets 5mg 180ta 1 by mouth Lizette bs twice a day Geno Miles Amoxicillin 12/12 Active Tablets 500mg 4tabs take 4 Lizette tablets by [place], mouth 1 hour M.D. before dental procedure Acetaminophen 12/11 Active Tablets ER 650mg 45tab 1 tab by Sivakumar /2017 s mouth q4 D. Rachid, hours as Geno,FACP needed pain Metoprolol 11/23 Active Tablets ER 25mg 90tab 1 tabs by Sivakumar Succinate ER /2017 24HR s mouth every D. [place], day M.Cornelio,FACP Atorvastatin 11/15 Active Tablets 20mg 135ta 1.5 tablets Lizette bs (30 mg) by [place] mouth every M.D. day Aspirin Low Active Tablets DR 81mg 1 by mouth Unknown Dose /0000 every day Coricidin HBP 02/09 Hx Tablets 1 by mouth Sivakumar Cold & Flu /2017 four times a D. Rachid, - day as Geno,FACP 03/23 needed /2017 Lovenox 11/23 Hx Solution 80mg/0.8M 10uni 0.8 I48.1 Lizette L ts milliliters Ginger, - injection M.DJamil 11/30 subq every 12 hours Furosemide 11/14 Hx Tablets 40mg 1 by mouth Unknown every day x - 5 days 11/19 Hydrocodone-[place] 11/14 Hx Tablets 5-325mg 1 or 2 tabs Unknown taminophen by mouth - every 4 11/24 hours needed for pain Losartan 11/07 Hx Tablets 25mg 90tab 1 by mouth Sivakumar Potassium /2017 s every day Bo Kulkarni M.D.,[facility] 11/22 Atorvastatin 11/07 Hx Tablets 40mg 90tab take 1 Sivakumar Calcium s tablet by Cornelio Rashid - mouth at Geno,[facility] 11/15 bedtime Saw [place] 11/07 Hx Capsules 450mg 1 by mouth Sivakumar twice a day Bo Kulkarni M.D.,[facility] 11/15 Losartan 07/10 Hx Tablets 50mg 90tab 1/2 by mouth Sivakumar Potassium s every day Bo Kulkarni M.D.,[facility] 11/07 Fluticasone 01/16 Hx Suspension 50mcg/Act 16gm 2 sprays H81.12 [place] Propionate each nostril JULISA Alvarado - qd. 11/07 Enalapril Hx Tablets 20mg 90tab 1/2 by mouth Sivakumar Maleate / s twica a day Bo Kulkarni M.D.,[facility] 07/10 Ibuprofen Hx Capsules 200mg as needed Unknown / - 11/15 Atorvastatin Hx Tablets 20mg 135ta 1 1/2 tabs Amara Calcium / bs by mouth qPM Praveena, Bo EGAN 11/07 Wheat Germ Oil Hx Oil daily Unknown / - 11/22 Ascorbic Acid Hx Tablets 500mg 1 by mouth Unknown / every day - 12/07 Theragran-M Hx Tablets 1 by mouth Unknown / [...] Hx Tablets 5mg 180ta as directed Sivakumar /0000 Bo Louie M.D.,FACP 03/10 Tab-A-Katelynn Hx Tablets 1 by mouth Unknown / every day - 12/29 Immunizations CPT Code Status Date Vaccine Lot # 48854 Given 03/10/2018 Influenza Virus Vaccine, Quadrivalent, Split, Preservative Free 80643 Given 03/06/2018 Influenza Virus Vaccine, Quadrivalent, Split, Preservative Free 30817 Given 07/10/2017 Pneumococcal Conjugate Vaccine 13 Valent For [id number] Intramuscular Use 15607 Given 04/04/2017 Influenza Virus Vaccine, Quadrivalent, Split, Preservative Free 62283 Given 11/28/2012 Tdap - Tetanus/Diptheria/Acellular Pertussis 20217 Given 06/02/2010 Pneumonia Vaccine Vital Signs Date Vital Result Comment 2018 Height 73.75 inches 6'1.75" Weight 178.00 [...] Partial Thrombo Time 29.9 seconds 26.0-36.3 PTT Inr/Protime 09/18/2017 Inr 0.90 0.77-1.02 Basic Metabolic Panel 09/18/2017 Sodium 136 mmol/L Low 139-145 Potassium 4.1 mmol/L 3.5-5.0 Chloride 100 mmol/L Low 101-111 Co2 Carbon Dioxide 28 mmol/L 22-32 Anion Gap 8 mmol/L 2-11 Glucose 97 mg/dL 70-100 Blood Urea Nitrogen 16 mg/dL 6-24 Creatinine 0.95 mg/dL 0.67-1.17 BUN/Creatinine Ratio 16.8 8-20 Calcium 9.5 mg/dL 8.6-10.3 Egfr Non- 77.9 >60 Egfr 100.2 >60 7 CBC Auto Diff 09/18/2017 White Blood Count [...] 0-2 Nucleated Red Blood Cells % 0.1 Basic Metabolic Panel 08/01/2017 Sodium 135 mmol/L 133-145 Potassium 4.4 mmol/L 3.5-5.0 Chloride 103 mmol/L 101-111 Co2 Carbon Dioxide 26 mmol/L 22-32 Anion Gap 6 mmol/L 2-11 Glucose 103 mg/dL High 70-100 Blood Urea Nitrogen 16 mg/dL 6-24 Creatinine 0.89 mg/dL 0.67-1.17 BUN/Creatinine Ratio 18.0 8-20 Calcium 9.7 mg/dL 8.6-10.3 Egfr Non- 84.0 >60 Egfr 108.1 >60 8 Lipid Profile (Trig/Chol/HDL) 08/01/2017 Triglycerides 69 mg/dL 9 Cholesterol 186 mg/dL 10 HDL Cholesterol 61.8 mg/dL 11 LDL Cholesterol 110 mg/dL 12 Laboratory test finding 08/01/2017 Hepatitis C Antibody Nonreactive Nonreactive Lipid Profile 01/12/2017 Triglycerides 85 mg/dL 13 (Trig/Chol/HDL) Cholesterol 187 mg/dL 14 HDL Cholesterol 59.3 mg/dL 15 LDL Cholesterol 111 mg/dL 16 Liver Function Panel 01/12/2017 Direct Bilirubin 0.10 mg/dL 0.03-0.18 Indirect Bilirubin 0.6 mg/dL 0.3-1.0 Comp Metabolic Panel 01/12/2017 Sodium 135 mmol/L [...] Egfr Non- 85.4 >60 Egfr 109.8 >60 17 1 Desirable: <150 Borderline High: 150-199 [...] 5 Kidney failure <15 (or dialysis) 8 Because ethnic data is not always [...] 5 Kidney failure <15 (or dialysis) 9 Desirable: <150 Borderline High: 150-199 High: 200-499 Very High: >500 10 Desirable: <200 Borderline High: 200-239 High: >239 11 Low: <40 Desirable: 40-60 High: >60 12 Desirable: <100 Near Optimal: 100-129 Borderline High: 130-159 High: 160-189 Very High: >189 13 Desirable <150 Borderline high 150-199 High 200-499 Very High >500 14 Desirable <200 Borderline high 200-239 High >239 15 Low <40 Desirable: 40-60 High: >60 16 Desirable: <100 mg/dL Near Optimal: 100-129 mg/dL Borderline High: 130-159 mg/dL High: 160-189 mg/dL Very High: >189 mg/dL 17 Because ethnic data is not always readily [...] Kidney failure <15 (or dialysis) Procedures Date CPT Code Description Status 12/07/2017 84318 EKG Tracing & Interpretation Completed 11/30/2017 46862 Moderate Sedation Services; Same Phys Intl 15 Mins; PT Completed >=5 Years 11/30/2017 81132 Color Flow Doppler/Interp & Reprt Completed 11/30/2017 67043 Pulse Wave/Continuous-Interp.RPT Completed 11/30/2017 28056 Echocardiography, Transesophageal, Real Time W/Image 2D Completed W/W/O M-M 11/30/2017 98797 Cardioversion Completed 11/23/2017 64339 EKG Tracing & Interpretation Completed 11/17/2017 10304 EKG Tracing & Interpretation Completed 09/22/2017 26268 Cath PLMT&NJX L Ventriculog Img S&I Completed 09/15/2017 66659 EKG Tracing & Interpretation Completed 07/27/2017 60509 ECHO Transthorasic Realtime 2D W Doppler & Color Flow Completed Hosp 03/21/2017 29497 Closed Treatment Radial Head Or Neck FX W/O Completed Manipulation 01/16/2017 37946 EKG Tracing & Interpretation Completed 07/30/2015 33815 ECHO Transthoracic, Real-Time 2D With Doppler And Color Completed Flow 11/05/2014 Colonoscopy Completed 07/17/2013 83612 ECHO Transthoracic, Real-Time 2D With Doppler And Color Completed Flow Encounters Type Date Location Provider CPT E/M Dx Office Visit 03/13/2018 2:20p [facility] Internal Medicine Sivakumar Rashid, 35119 I48.0 - Jefe Lora,FACP I10 Office Visit 02/16/2018 2:00p [facility] Lizette Miles M.D. 10344 Z95.2 [facility] I48.0 J06.9 Office Visit 12/29/2017 4:40p [facility] Internal Medicine Sivakumar Rashid, 15835 I48.0 - Eric Arroyo M.D.,FACP Z79.01 E78.2 I10 Office Visit 12/07/2017 1:00p [facility] Tequila German, 73116CZT Z95.2 [facility] N.PJamil I48.0 Z79.01 I10 Office Visit 11/24/2017 8:40a [facility] Internal Medicine Sivakumar Rashid, 93803 I48.1 - [place] Cruz Lora,FACP Z95.2 Z79.01 R42 Office Visit 11/23/2017 9:40a [facility] Lizette Miles M.D. 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 50286 I35.0 [facility] AT [facility] Z95.2 R42 I10 I25.10 I48.0 Office Visit 09/29/2017 3:15p [facility] Tequila German, 12133SMI I35.0 [facility] N.P. I25.10 E78.5 I10 Office Visit 09/15/2017 9:40a [facility] Lizette Miles M.D. 17452 I35.0 [facility] AT [facility] E78.5 I10 Office Visit 08/08/2017 8:30a [facility] Fly Momin 49124 S52.124D Of Chuck Wright MD Office Visit 07/10/2017 2:00p [facility] Internal Medicine Sivakumar Rashid, 43141 I10 - [place] Cruz Lora,FACP I35.0 E78.5 R49.8 Z23 Office Visit 01/16/2017 2:00p [facility] [place] [address] R42 Innis H81.12 Office Visit 01/05/2017 1:00p [facility] [place] [address] E78.5 Plan of Care Future Appointment(s):03/27/2018 1:30 pm - Tequila German N.P. at [facility]11/13/2018 1:00 pm - Sivakumar Rashid M.D.,FACP at [facility] Internal Medicine - Gyzveksqz45/26/2018 - Sivakumar Rashid M.D.,FACPS06.5x1D Traum subdr hem w Loc of 30 minutes or less, subsNew Xrays:CT Brain WoComments: Discussed your past hospitalization. Obtain a CD of the two CTs taken during your past hospitalization. Please take this CD to your next CT appointment at the hospital.I48.0 Paroxysmal atrial fibrillationComments:Rate control and anticoagulation are on target.Begin taking Metoprolol 25 MG 1x daily. 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
--- OUTSIDE RECORDS SUMMARY | 2018-04-19 11:03 | XMS REPORT | Continuity of Care Document ---
:1945 External Reference #:[id number] Author Name Emily Griffiths Care Team Providers Name Role Phone Sivakumar Rashid MD Primary Care Physician Unavailable Payers Type Date Identification Numbers Payment Provider Subscriber Effective: Policy Number: [id number] Medicare Lucas Spann 2010 PayID: [id number] [address] [place] [address] Policy Number: [id number] [facility] Lucas Spann PayID: [id number] [address] [place] [address] Advance Directives Description No Information Available Problems [...] Unknown Marital Status Lives With Occupation Retired [employer] ETOH Use 07/10/2017 Drinks 6 Alcoholic none since Beverages Per Week 11/09/2017 Tobacco Use Start: Unknown End: Patient is a former quit when in his Unknown smoker 20's Recreational Drug Use Denies Drug Use Smoking Status Reviewed: 04/16/18 Patient is a former quit when in his smoker 20's Exercise Type/Frequency cycling/spinning [employer] daily. machine workout for arms and legs. Cardiac rehab. Allergies, Adverse Reactions, Alerts Description No Known Drug Allergies Medications Medication Date Status Form Strength Qnty SIG Indications Ordering Provider Magnesium Oxide 03/27 Active Capsules 400mg 60cap 1 by mouth I48.0 Tequila S. s twice a day Maxi N.Mikey Amoxicillin 12/12 Active Tablets 500mg 4tabs take 4 Lizette tablets by Lipscomb, mouth 1 hour M.D. before dental procedure Acetaminophen 12/11 Active Tablets ER 650mg 45tab 1 tab by Sivakumar ER /2017 s mouth q4 D. Holbrook, hours as M.D.,FACP needed pain Metoprolol 11/23 Active Tablets ER 25mg 90tab 1 tabs by Sivakumar Succinate 24HR s mouth every D. Holbrook, day M.D.,FACP Atorvastatin 11/15 Active Tablets 20mg 135ta 1.5 tablets Lizette Calcium bs (30 mg) by Lipscomb, mouth every M.D. day Aspirin Low Active Tablets DR 81mg 1 by mouth Unknown Dose /0000 every day Eliquis 03/10 Hx Tablets 5mg 180ta 1 by mouth Lizette bs twice a day Bo Miles.DJamil 04/10 Coricidin HBP 02/09 Hx Tablets 1 by mouth Sivakumar Cold & Flu /2017 four times a D. Holbrook, - day as M.D.,[facility] 03/23 needed Lovenox 11/23 Hx Solution 80mg/0.8M 10uni 0.8 I48.1 Lizette L ts milliliters Lipscomb, - injection Geno 11/30 subq every 12 hours Furosemide 11/14 Hx Tablets 40mg 1 by mouth Unknown every day x - 5 days 11/19 Hydrocodone-[place] 11/14 Hx Tablets 5-325mg 1 or 2 tabs Unknown taminophen by mouth - every 4 11/24 hours as needed for pain Losartan 11/07 Hx Tablets 25mg 90tab 1 by mouth Sivakumar Potassium /2017 s every day Bo Kulkarni M.D.,[facility] 11/22 Atorvastatin 11/07 Hx Tablets 40mg 90tab take 1 Sivakumar Calcium s tablet by Cornelio Rashid, - mouth at Geno,[facility] 11/15 bedtime Saw [place] 11/07 Hx Capsules 450mg 1 by mouth Sivakumar /2017 twice a day Bo Kulkarni M.D.,[facility] 11/15 Losartan 07/10 Hx Tablets 50mg 90tab 1/2 by mouth Sivakumar Potassium /2017 s every day Bo Kulkarni M.D.,[facility] 11/07 Fluticasone 01/16 Hx Suspension 50mcg/Act 16gm 2 sprays H81.12 Oseas Propionate each nostril JULISA Alvarado - qd. 11/07 Enalapril Hx Tablets 20mg 90tab 1/2 by mouth Sivakumar Maleate / s twica a day Bo Kulkarni M.D.,[facility] 07/10 Ibuprofen Hx Capsules 200mg as needed Unknown / - 11/15 Atorvastatin Hx Tablets 20mg 135ta 1 1/2 tabs Amara Calcium / bs by mouth qPM Praveena, Bo [employer] ATTEND[employer] 11/07 Wheat Germ Oil 00 Hx Oil daily Unknown / - 11/22 [...] Coumadin Hx Tablets 5mg 180ta as directed [facility] Bo Louie M.D.,FACP 03/10 Tab-A-Katelynn Hx Tablets 1 by mouth Unknown /0000 every day - 12/29 Immunizations CPT Code Status Date Vaccine Lot # [id number] Given 03/10/2018 Influenza Virus Vaccine, Quadrivalent, Split, Preservative Free 41629 Given 03/06/2018 Influenza Virus Vaccine, Quadrivalent, Split, Preservative Free 28725 Given 07/10/2017 Pneumococcal Conjugate Vaccine 13 Valent For [id number] Intramuscular Use 24310 Given 04/04/2017 Influenza Virus Vaccine, Quadrivalent, Split, Preservative Free 23937 Given 11/28/2012 Tdap - Tetanus/Diptheria/Acellular Pertussis 59868 Given 06/02/2010 Pneumonia Vaccine Vital Signs Date Vital Result Comment 04/16/2018 10:52am Height 73.75 inches 6'1.75" Weight [...] Result H/L Range Note Basic Metabolic 03/27/2018 [facility] Sodium 133 mmol/L Low 135-[address] [place] [address] [phone] Potassium 4.9 mmol/L N 3.5-5.0 Chloride 100 mmol/L Low 101-111 Co2 Carbon Dioxide 28 mmol/L N 22-32 Anion Gap 5 mmol/L N 2-11 Glucose 107 mg/dL High 70-100 Blood Urea Nitrogen 17 mg/dL N 6-24 Creatinine 0.77 mg/dL N 0.67-1.17 BUN/Creatinine Ratio 22.1 High 8-20 Calcium 9.2 mg/dL N 8.6-10.3 Egfr Non- 99.0 >60 Egfr 119.8 >60 1 Laboratory test 03/27/2018 [facility] Magnesium 2.1 mg/dL N 1.9-2.7 finding [address] [place] [address] [phone] Protime W/ Inr 03/13/2018 [facility] Prothrombin Time 20.5 Inr 1.7 Protime W/ Inr 03/05/2018 [facility] Prothrombin Time 36.6 Inr 3.0 Protime W/ Inr 02/15/2018 [facility] Prothrombin Time 24.3 Inr 2.0 Protime W/ Inr 02/05/2018 [facility] Prothrombin Time 23.6 Inr 1.9 Protime W/ Inr 01/22/2018 [facility] Prothrombin Time 24.8 Inr 2.0 Protime W/ Inr 01/08/2018 [facility] Prothrombin Time 27.4 Inr 2.2 Protime W/ Inr 12/29/2017 [facility] Prothrombin Time 34.3 Inr 2.8 Protime W/ Inr 12/22/2017 [facility] Prothrombin Time 23.6 Inr 1.9 Basic Metabolic Panel 12/19/2017 [facility] Sodium 138 mmol/L N 135-145 [address] [place] [address] [phone] Potassium 4.5 mmol/L N 3.5-5.0 Chloride 105 mmol/L N 101-111 Co2 Carbon Dioxide 26 mmol/L N 22-32 Anion Gap 7 mmol/L N 2-11 Glucose 97 mg/dL N 70-100 Blood Urea Nitrogen 19 mg/dL N 6-24 Creatinine 0.81 mg/dL N 0.67-1.17 BUN/Creatinine Ratio 23.5 High 8-20 Calcium 9.5 mg/dL N 8.6-10.3 Egfr Non- 93.7 >60 Egfr 113.3 >60 2 Lipid Profile 12/19/2017 [facility] Triglycerides 108 mg/dL 3 (Trig/Chol/HDL) [address] [place] [address] [phone] Cholesterol 171 mg/dL 4 HDL Cholesterol 58.5 mg/dL 5 LDL Cholesterol 91 mg/dL 6 Protime W/ Inr 12/18/2017 [facility] Prothrombin Time 19.8 Inr 1.6 Protime W/ Inr 12/11/2017 [facility] Prothrombin Time 16.1 Inr 1.3 Protime W/ Inr 12/01/2017 [facility] Prothrombin Time 27.1 Inr 2.2 Inr/Protime 11/30/2017 [facility] Inr 2.53 High 0.77-1.[address] [place], [place] [id number] [phone] Protime W/ Inr 11/28/2017 [facility] Prothrombin Time 39.7 Inr 3.2 Protime W/ Inr 11/27/2017 Other Rendering Inr 4.3 Protime W/ Inr 11/24/2017 [facility] Prothrombin Time 18.6 Inr 1.5 Inr/Protime 11/22/2017 [facility] Inr 1.44 High 0.77-1.[address] [place], [place] [id number] [phone] Cath Panel 09/18/2017 [facility] Partial 29.9 seconds N 26.0- 36.[address] [place] [address] PTT [phone] CBC Auto Diff 09/18/2017 [facility] White Blood 8.7 10^3/uL N 3.5-10.[address] [place] [address] [phone] Red Blood Count 4.96 10^6/uL N 4.0-5.4 [...] Red Blood Cells % 0.1 Inr/Protime 09/18/2017 [facility] Inr 0.90 N 0.77-1.02 [address] [place] [address] [phone] Basic Metabolic 09/18/2017 [facility] Sodium 136 mmol/L Low 139-[address] [place] [address] [phone] Potassium 4.1 mmol/L N 3.5-5.0 Chloride 100 mmol/L Low 101-111 Co2 Carbon Dioxide 28 mmol/L N 22-32 Anion Gap 8 mmol/L N 2-11 Glucose 97 mg/dL N 70-100 Blood Urea Nitrogen 16 mg/dL N 6-24 Creatinine 0.95 mg/dL N 0.67-1.17 BUN/Creatinine Ratio 16.8 N 8-20 Calcium 9.5 mg/dL N 8.6-10.3 Egfr Non- 77.9 >60 Egfr 100.2 >60 8 Laboratory 08/01/2017 [facility] Hepatitis C Nonreactive Nonreactive test finding [address] [facility] [place] [address] [phone] Basic 08/01/2017 [facility] Sodium 135 mmol/L N 133-145 Metabolic [address] [facility] [place] [address] [phone] Potassium 4.4 mmol/L N 3.5-5.0 Chloride 103 mmol/L N 101-111 Co2 Carbon Dioxide 26 mmol/L N 22-32 Anion Gap 6 mmol/L N 2-11 Glucose 103 mg/dL High 70-100 Blood Urea Nitrogen 16 mg/dL N 6-24 Creatinine 0.89 mg/dL N 0.67-1.17 BUN/Creatinine Ratio 18.0 N 8-20 Calcium 9.7 mg/dL N 8.6-10.3 Egfr Non- 84.0 >60 Egfr 108.1 >60 9 Lipid Profile 08/01/2017 [facility] Triglycerides 69 mg/dL 10 (Trig/Chol/HDL) [address] [place] [address] [phone] Cholesterol 186 mg/dL 11 HDL Cholesterol 61.8 mg/dL 12 LDL Cholesterol 110 mg/dL 13 Comp Metabolic Panel 01/12/2017 [facility] Sodium 135 mmol/L N 133-145 [address] [place] [address] [phone] Potassium 4.9 mmol/L N 3.5-5.0 Chloride 103 [...] 85.4 N >60 Egfr 109.8 N >60 14 Liver Function 01/12/2017 [facility] Direct 0.10 mg/dL N 0.03- 0.18 Panel [address] [facility] [place] [place] [address] [phone] Indirect Bilirubin 0.6 mg/dL N 0.3-1.0 Lipid Profile 01/12/2017 [facility] Triglycerides 85 mg/dL N 15 (Trig/Chol/HDL) [address] [place] [address] [phone] Cholesterol 187 mg/dL N 16 HDL Cholesterol 59.3 mg/dL N 17 LDL Cholesterol 111 mg/dL N 18 1 Because ethnic data is not [...] 5 Kidney failure <15 (or dialysis) 2 Because ethnic data is not always readily [...] 15-29 5 Kidney failure <15 (or dialysis) 3 Desirable: <150 Borderline High: 150-199 High: 200-499 Very High: >500 4 Desirable: <200 Borderline High: 200-239 High: >239 5 Low: <40 Desirable: 40-60 High: >60 6 Desirable: <100 Near Optimal: 100-129 Borderline High: 130-159 High: 160-189 Very High: >189 7 CALL RESULTS 4590 OR 4591 8 [...] 130-159 High: 160-189 Very High: >189 14 Because ethnic data is not always readily [...] 15-29 5 Kidney failure <15 (or dialysis) 15 Desirable <150 Borderline high 150-199 High 200-499 Very High >500 16 Desirable <200 Borderline high 200-239 High >239 17 Low <40 Desirable: 40-60 High: >60 18 Desirable: <100 mg/dL Near Optimal: 100-129 mg/dL Borderline High: 130-159 mg/dL High: 160-189 mg/dL Very High: >189 mg/dL Procedures Date Code Description Status 03/27/2018 81296 EKG Tracing & Interpretation Completed 12/07/2017 36048 EKG Tracing & Interpretation Completed 12/01/2017 27704 EKG, Interpretation Only Completed 11/30/2017 74601 Moderate Sedation Services; Same Phys Intl 15 Mins; PT Completed >=5 Years 11/30/2017 91848 Color Flow Doppler/Interp & Reprt Completed 11/30/2017 47793 Pulse Wave/Continuous-Interp.RPT Completed 11/30/2017 15556 Echocardiography, Transesophageal, Real Time W/Image 2D Completed W/W/O M-M 11/30/2017 25460 Cardioversion Completed 11/23/2017 89886 EKG Tracing & Interpretation Completed 11/17/2017 43574 EKG Tracing & Interpretation Completed 09/22/2017 92558 Cath PLMT&NJX L Ventriculog Img S&I Completed 09/15/2017 48881 EKG Tracing & Interpretation Completed 07/27/2017 33872 ECHO Transthorasic Realtime 2D W Doppler & Color Flow Completed Hosp 03/21/2017 48038 Closed Treatment Radial Head Or Neck FX W/O Completed Manipulation 01/16/2017 29558 EKG Tracing & Interpretation Completed 07/30/2015 23863 ECHO Transthoracic, Real-Time 2D With Doppler And Color Completed Flow 11/05/2014 [id number] Colonoscopy Completed 07/17/2013 21825 ECHO Transthoracic, Real-Time 2D With Doppler And Color Completed Flow Encounters Type Date Location Provider Dx Diagnosis Office Visit 03/27/2018 [facility] Tequila German, I48.0 Paroxysmal atrial 1:30p Of [facility] N.P. fibrillation Z79.01 prison (current) use of anticoagulants Z95.2 Presence of prosthetic heart valve E78.2 Mixed hyperlipidemia S06.5x1D Traum subdr hem w Loc of 30 minutes or less, subs Office Visit 2018 11:00a [facility] Internal Sivakumar Grimes S06.5x1D Traum subdr Ced Rashid M.D.,FACP hem w Loc of [address] 30 minutes or less, subs I48.0 Paroxysmal atrial fibrillation Z79.01 prison (current) use of anticoagulants Office Visit 03/13/2018 2:20p [facility] Ninoska Grimes I48.0 Paroxysmal atrial Ced Rashid M.D.,FACP fibrillation [place] I10 Essential (primary) hypertension Office Visit 02/16/2018 2:00p [facility] Lizette Miles, Z95.2 Presence of Of [facility] Geno prosthetic heart valve I48.0 Paroxysmal atrial fibrillation J06.9 Acute upper respiratory infection, unspecified Office Visit 12/29/2017 4:40p [facility] Ninoska Grimes I48.0 Paroxysmal atrial Ced Rashid M.D.,FACP fibrillation [address] Z79.01 prison (current) use of anticoagulants E78.2 Mixed hyperlipidemia I10 Essential (primary) hypertension Office Visit 12/07/2017 1:00p [facility] Tequila SJamil Z95.2 Presence of Of [facility] Rossy German prosthetic heart valve I48.0 Paroxysmal atrial fibrillation 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 I10 Essential (primary) hypertension Office Visit 11/24/2017 8:40a [facility] Ninoska Grimes I48.1 Persistent atrial Ced Rashid M.D.,FACP fibrillation [address] Z95.2 Presence of prosthetic heart valve 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 R41.82 Altered mental 9:29a Assoc,dawson Zapata M.D. status, Hospitalists unspecified I48.91 Unspecified atrial fibrillation Office Visit 11/17/2017 8:20a [facility] Lizette Miles, I35.0 Nonrheumatic Of [facility] M.D. aortic (valve) stenosis Z95.2 Presence of prosthetic heart valve R42 Dizziness and giddiness I10 Essential (primary) hypertension I25.10 Athscl heart disease of [place] coronary artery w/o ang pctrs I48.0 Paroxysmal atrial fibrillation Office Visit 11/17/2017 [facility] I48.91 Unspecified 9:28a Assdawson lockhart M.D. 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 aortic (valve) stenosis E78.5 Hyperlipidemia, unspecified I10 Essential (primary) hypertension Office Visit 08/08/2017 [facility] S52.124D Nondisp fx of head 8:30a Services Of MD Adriana of rebeka bullock, subs for Chuck sidhu fx w zoie heal Office Visit 07/10/2017 [facility] Internal Sivakumar Grimes I10 Essential 2:00p Medicine - [address], (primary) Rd M.Cornelio,FACP hypertension I35.0 Nonrheumatic aortic (valve) stenosis E78.5 Hyperlipidemia, unspecified R49.8 Other voice and resonance disorders Z23 Encounter for immunization Office Visit 01/16/2017 2:00p [facility] Internal Oseas Alvarado NP R42 Dizziness and Medicine - giddiness [place] H81.12 Benign paroxysmal vertigo, left ear Office Visit 01/05/2017 1:00p [facility] Internal Amara I10 Essential (primary ) Medicine - JULISA Grissom hypertension [address] E78.5 Hyperlipidemia, unspecified Plan of Treatment Future Appointment(s):05/11/2018 11:30 am - Sivakumar Rashid M.D.,FACP at [facility] Internal Medicine - [address]/13/2018 1:00 pm - Sivakumar Rashid M.D.,FACP at [facility] Internal Medicine - Nbrbiyygt23/19/2018 - Sivakumar Rashid M.D., FACPS06.5x1D Traum subdr hem w Loc of 30 minutes or less, subsComments: Discussed recent CT results. We will continue monitoring your symptoms.Complete CT of brain as planned. I will contact you with the results.I48.0 Paroxysmal atrial fibrillationComments:Continue taking aspirin as prescribed.I am not prescribing additional blood-thinners at this time
--- NOTE | 2018-04-19 11:07 | ED ---
Syncope/Near Syncope - HPI Summary HPI Summary: A 73 y/o male accompanied by family presents to the ED c/o witnessed syncopal episode. Currently, the patient reports no pain, however, he does feel a bit "woosie". Otherwise, the patient is fine. In the ED room, the patient has a pulse of 78 BPM, O2 saturation of 99% and blood pressure of 129/88. As per triage, "Pt states he started to feel "woosie" while sitting then had syncopal event. Was out for apox 10 sec. Pt w/ nausea afterwards. Valve replacement ". As per son, the patient passed out when he was sitting down and eating a full breakfast. Initially, he seemed fine, however, during breakfast, the patient indicated that he was feeling slightly lightheaded and nauseated. The patient then slumped over a bit and his eyes fluttered. This was accompanied by "blood draining out of his face" which was then followed by syncope for approximately 10 seconds. The son additionally noted that his eyes exhibited a yellowish look. After the episode, the patient sat there on the chair for a bit , but then did a bit of vomiting before being put on the couch (pulse was steady after incident). The patient denies any chest pain, SOB, abdominal pain, headache, numbness/tingling, urinary symptoms. The patient believes it is his blood pressure that is the problem. An aortic cattle valve was placed in which he was put on 15 mg of Metoprolol. He asked his MD to cut it back after his first syncopal episode since he lost weight. This is the second occurrence since the surgery in October. It was noted that the patient had a CAT scan of his head 2 days ago because he bumped his head back in February. A cerebral hematoma had grown and his neurologist has been following up with him to see if it would clear up on its own. He is scheduled for another CAT scan on May 14, 2018. His noted that during his last cardiac rehab, the patient's blood pressure was 90/58, however after exercise, it went back to a normal 120/78. Additionally , the patient went into A-fib a week after the valve surgery. He goes to the bathroom 3-4 times a night as he drinks lots of fluids (water and Gatorade) because during his first syncopal episode, he was dehydrated. Current medications include Metoprolol, Aspirin, Magnesium and Lipitor. He was taken off Eliquis because of the hematoma. PMHx of no CVA or DM. SHx of no alcohol. - History Of Current Complaint Chief Complaint: EDSyncope Time Seen by Provider: 04/19/18 11:02 Hx Obtained From: Patient, Family/Railroad Brakeman - SON AND Onset/Duration: Sudden Onset, Resolved Timing: Seconds - 10 SECONDS Context: Witnessed - SON AND Activity At Onset: At Rest - EATING BREAKFAST Associated Head Trauma: No Aggravating Factor(s): Nothing Alleviating Factor(s): Nothing Associated Signs And Symptoms: Vomiting - Allergies/Home Medications Allergies/Adverse Reactions: Allergies Allergy/AdvReac Type Severity Reaction Status Date / Time No Known Drug Allergies Allergy Unknown Verified 04/19/18 11:18 Reaction Details seasonal allergies Allergy Congestion Uncoded 04/19/18 11:18 Home Medications: Home Medications Magnesium Oxide [Magnesium] 400 mg PO BID 04/19/18 [History Confirmed 04/19/18] Metoprolol Succinate XL TAB* [Toprol XL TAB*] 25 mg PO DAILY 04/19/18 [History Confirmed 04/19/18] PMH/Surg Hx/FS Hx/Imm Hx Cardiovascular History: Reports: Hx Coronary Artery Disease, Hx Hypercholesterolemia, Hx Hypertension, Hx Valvular Heart Disease Sensory History: Reports: Hx Contacts or Glasses Denies: Hx Hearing Aid Opthamlomology History: Reports: Hx Contacts or Glasses Neurological History: Reports: Hx Seizures, Hx Transient Ischemic Attacks (TIA) Denies: Hx Headaches - Surgical History Surgery Procedure, Year, and Place: AORTIC VALVE REPLACEMENT Infectious Disease History: No Infectious Disease History: Denies: Traveled Outside the [place] in Last 30 Days - Family History Known Family History: Negative: Hypertension, Diabetes - Social History Alcohol Use: Daily Alcohol Amount: 1 beer per day (prior to surgery) Substance Use Type: Reports: None Smoking Status (MU): Never Smoked Tobacco Review of Systems Negative: Fever Eyes: Other - POSITIVE: PER SON, PATIENT'S EYE WERE YELLOW DURING EPISODE, CURRENTLY RESOLVED Negative: Chest Pain Negative: Shortness Of Breath Positive: Vomiting, Nausea - POSITIVE: NAUSEATED DURING EPISODE, CURRENTLY RESOLVED. Negative: Abdominal Pain Positive: no symptoms reported Neurological: Other - POSITIVE: LIGHTHEADED DURING EPISODE, CURRENTLY RESOLVED Positive: Syncope. Negative: Headache, Numbness All Other Systems Reviewed And Are Negative: Yes Physical Exam - Summary Physical Exam Summary: Appearance: Well appearing, no pain distress Skin: warm, dry, reflects adequate perfusion Head/face: normal Eyes: EOMI, MAYELA ENT: normal Neck: supple, non-tender Respiratory: CTA, breath sounds present Cardiovascular: RRR, pulses symmetrical Abdomen: non-tender, soft Bowel: present Musculoskeletal: normal, strength/ROM intact Neuro: normal, sensory motor intact, A&Ox3 Triage Information Reviewed: Yes Vital Signs On Initial Exam: Initial Vitals Temp Pulse Resp BP Pulse Ox 97.0 F 74 18 147/72 100 04/19/18 10:54 04/19/18 10:54 04/19/18 10:54 04/19/18 10:54 04/19/18 10:54 Vital Signs Reviewed: Yes Diagnostics - Vital Signs Vital Signs Temp Pulse Resp BP Pulse Ox 04/19/18 10:54 97.0 F 74 18 147/72 100 - Laboratory Result Diagrams: 04/19/18 11:27 04/19/18 11:27 Lab Statement: Any lab studies that have been ordered have been reviewed, and results considered in the medical decision making process. - Radiology CXR Radiology Interpretation Completed By: Radiologist - NO EVIDENCE FOR ACUTE DISEASE. ED PHYSICIAN REVIEWED THIS RADIOLOGY REPORT. - CT CT A/P CT Interpretation Completed By: Radiologist - 1. THERE IS MILD THICKENING OF THE WALL OF THE COLON AT THE HEPATIC FLEXURE WITH ADJACENT INTERSTITIAL STRANDING POSSIBLY REPRESENTING MILD DIVERTICULITIS ALTHOUGH A COLON MASS CANNOT BE EXCLUDED. RECOMMEND A FOLLOW-UP COLONOSCOPY FOR FURTHER EVALUATION. IN ADDITION THERE IS ADJACENT CONTRACTION OF THE GALLBLADDER AND PNEUMOBILIA RAISING THE POSSIBILITY OF A GALLBLADDER OR BILIARY ENTERIC FISTULA. 2. HEPATIC STEATOSIS. ED PHYSICIAN REVIEWED THIS RADIOLOGY REPORT. - Ultrasound No standard instances Ultrasound Interpretation Completed By: Radiologist - ABDOMEN US: THE GALLBLADDER IS NOT VISUALIZED AND IS EITHER CONTRACTED OR HAS BEEN SURGICALLY REMOVED. RECOMMEND CLINICAL CORRELATION. ED PHYSICIAN REVIEWED THIS RADIOLOGY REPORT. - EKG 1121 Cardiac Rate: NL - 74 BPM EKG Rhythm: Sinus Rhythm - [address] Segment: Normal Ectopy: None Summary of EKG Findings: NO ACUTE CHANGES Re-Evaluation - Re-Evaluation First Eval Re-Evaluation Time: 12:01 Change: Unchanged Comment: PATIENT'S LFT'S ARE ELEVATED. DISCUSSED WITH PATIENT. ORDERED ULTRASOUND AND LABS. Course/Dx Course Of Treatment: A 73 y/o male accompanied by family presents to the ED c/o witnessed syncopal episode lasting 10 seconds. Currently, the patient reports no pain, however, he does feel a bit "woosie". Otherwise, the patient is fine. In the ED room, the patient has a pulse of 78 BPM, O2 saturation of 99% and blood pressure of 129/88. Physicial exam wasunremarkable. A CXR revealed no evidence for acute disease. A CT A/P revealed 1. There is mild thickening of the wall of the colon at the hepatic flexure with adjacent interstitial stranding possibly representing mild diverticulitis although a colon mass cannot be excluded. Recommend a follow-up colonoscopy for further evaluation. In addition there is adjacent contraction of the gallbadder and pneumobilia raising the possibility of a gallbladder or biliary enteric fistula. 2. Hepatic steatosis. A Abdomen US revealed the gallbladder is not visualized and is either contracted or has been surgically removed. Recommend clinical correlation. An EKG revealed NSR of 74 BPM, no acute changes. Blood work and urinalysis was done. In the ED course, the patient recieved Tazobactam and Omnipaque. Patient care was discussed with Dr. Tejada who recommended CAT scan. Patient care was discussed with Dr. Choe and Dr. Moyer who recommended admission under hospitalist care. Dr. Tejada than accepts patient for admission. 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 Patient is agreeable with this plan. - Diagnoses Differential Diagnosis/HQI/PQRI: Positive: Dysrhythmia, Vasovagal Episode - syncopy, Other Provider Diagnoses: Jaundice, Diverticulitis, Biliary fistula - Physician Notifications Discussed Care of Patient With: Ebonie Tejada Time Discussed With Above Provider: 13:59 Instructed by Provider To: Other - RECOMMENDS CAT SCAN. 1646 - DISCUSSED CASE WITH DR. CHOE AND DR. MOYER FOR CONSULT. 1651 - DR. TEJADA ACCEPTS PATIENT FOR ADMISSION. Discharge - Sign-Out/Discharge Documenting (check all that apply): Patient Departure - ADMIT, Sign-Out Patient - ISIDRO Signing out patient TO: Ebonie Tejada Receiving patient FROM: Gil Sanchez - Discharge Plan Condition: Stable Disposition: ADMITTED TO [facility] - Billing Disposition and Condition Condition: STABLE Disposition: Admitted to [facility] - Attestation Statements Document Initiated by Donny: Yes Documenting Scribe: Ishan Stover Provider For Whom Donny is Documenting (Include Credential): Gil Sanchez MD Scribe Attestation: Ishan Lozano, scribed for Gil Sanchez MD on 04/19/18 at 1813. Scribe Documentation Reviewed: Yes Provider Attestation: The documentation as recorded by the Ishan light accurately reflects the service I personally performed and the decisions made by me, Gil Sanchez MD
[2018-04-19 11:35] LABS: ABS Basophils 0 10^3/ul (0-0.2); ABS Eosinophils 0.1 10^3/ul (0-0.6); ABS Lymphocytes 0.7 10^3/ul (1.0-4.8); ABS Monocytes 1.2 10^3/ul (0-0.8); ABS Nucleated RBC 0 10^3/ul; Eosinophil % 0.9 % (0-6); Hematocrit 40 % (42-52); Hemoglobin 13.3 g/dl (14.0-18.0); Lymphocyte % 6.4 % (25-47); Mean Corpuscular HGB Conc 34 g/dl (31-36); Mean Corpuscular Hemoglobin 30 pg (27-31); Mean Corpuscular Volume 88 fL (80-94); Mean Platelet Volume 6.7 fL (7.4-10.4); Nucleated Red Blood Cells % 0; Platelet Count 254 10^3/ul (150-450); Red Cell Distribution Width 16 % (10.5-15)
[2018-04-19 11:41] LABS: INR 1.14 (0.77-1.02)
[2018-04-19 11:49] LABS: EGFR Non-African American 103.7 (>60)
[2018-04-19 11:54] LABS: Urine Appearance Clear; Urine Blood Negative (Negative); Urine Color Amber; Urine Ketones Negative (Negative); Urine Protein Negative (Negative); Urine Specific Gravity 1.019 (1.010-1.030); Urine Urobilinogen Positive (Negative)
[2018-04-19] MEDS ORDERED: Iohexol 300* (CONTRAST) 10 ML SDV IV ONE (14:25)
[2018-04-19] MEDS ORDERED: Piperacillin/Tazobac ADVAN(*) 3.375 GM in NS 0.9% 100 ML* 100 ML IVPB ONE ×2 (16:49→17:45)
[2018-04-19] MEDS ORDERED: Zosyn per Pharmacy* NOTE FOLLOW UP SCH (18:00)
[2018-04-19] MEDS ORDERED: Ibuprofen TAB* 600 MG PO PRN (18:55)
[2018-04-19] MEDS: NS 0.9% 1000 ML* 1,000 ML IV SCH (18:57)
[2018-04-19] MEDS ORDERED: Acetaminophen TAB* 325 MG PO PRN (18:58)
[2018-04-19] MEDS ORDERED: Atorvastatin* 10 MG TAB PO SCH (21:00)
[2018-04-19] MEDS: ZOSYN 3.375 GM Q8H per EXTENDED INFUSION IVPB SCH ×2 (21:55)
[2018-04-19] MEDS: Magnesium Oxide TAB* 400 MG PO SCH (21:55)
--- NOTE | 2018-04-19 21:58 | HP ---
CC: Dr. Rashid; Dr. Miles; Dr. Rangel; Dr. Marcano; Dr. Moyer* HISTORY AND PHYSICAL: DATE OF ADMISSION: 04/19/18 TIME OF EVALUATION: 5 p.m. PRIMARY CARE PROVIDER: Dr. Sivakumar Rashid. SUPERVISOR FELLING BUCKING: Dr. Miles. NEUROSURGEON: Dr. Rangel. CONSULTING DRUM SANDER: Dr. Marcano. CONSULTING GENERAL SURGEON: Dr. Moyer. CHIEF COMPLAINT: "He passed out." HISTORY OF PRESENT ILLNESS: Mr. Spann is a 73-year-old male with a past medical history of coronary artery disease, severe aortic stenosis, status post biologic aortic valve replacement in October 2017, postop atrial fibrillation, BPH , hyperlipidemia, hypertension, who presents to the emergency room after a syncopal episode. The patient underwent an aortic valve replacement with a #23 Magna pericardial valve at [facility] in [place] on 11/09/17. After surgery, the patient was admitted to our facility on 11/17/17 with paroxysmal atrial fibrillation. He was discharged on Lovenox and warfarin and was later on switched to Eliquis as per his . The patient states that he was doing well after surgery; but mid February, he went to [place] and had a syncopal episode. He was found to have a small subdural hematoma and his anticoagulation was discontinued. He has had serial CTs of the brain and although the last one showed a slight increase on his subdural, he was reportedly seen by Dr. Rangel as outpatient and told that he was in stable condition and the plan was for him to have a repeat CT of the brain in a month and no other interventions were indicated at this time. The patient states that he was in his usual state of health when he woke up this morning and around 10, he had another syncopal episode witnessed by his . She described that he started to feel oozy while sitting up, got pale, and passed out for approximately 10 seconds. He was nauseated when he woke up and she described that this was similar to the episode he had in February. At that point, the impression was that he was dehydrated and his metoprolol had been cut down from 50 to 25. He states that last night, he noted that his urine was very dark, but he thought it was because he had not drank enough fluids during the day. He denies vomiting, abdominal pain, or any changes in bowel movement. He has lost 10 pounds unintentionally since his surgery in October, but states that he had been advised that he would lose weight after surgery as his fluid balance would improve. There is no fever, chills, night sweats, chest pain, palpitation, shortness of breath, cough, or any other complaints. PAST MEDICAL HISTORY: 1. Coronary artery disease with 40% disease in the RCA his pre-aortic valve replacement cath was on 09/22/17. 2. Status post aortic valve replacement, #23 Magna pericardial on 11/09/[address] [facility] in [place]. 3. Paroxysmal atrial fibrillation postop. 4. BPH, status post TURP. 5. Hyperlipidemia. 6. Hypertension. PAST SURGICAL HISTORY: 1. Status post tonsillectomy. 2. Status post vasectomy. 3. Status post TURP and urethral dilatation. FAMILY HISTORY: Father had a history of heart disease, hypertension, cancer; passed at age 84. Mom passed at age 94 of unknown causes. SOCIAL HISTORY: The patient is an ex-smoker, but he quit when he was in his 20s. He drinks alcohol socially. No history of drug use. He used to lift weights prior to his cardiac surgery and has not returned to full physical activities yet. Surrogate decision maker is his , Ana Spann, phone number is [phone]. REVIEW OF SYSTEMS: A 14-point review of systems was performed and all the pertinent negatives and positive findings as per the HPI. PHYSICAL EXAMINATION GENERAL: The patient is a pleasant elderly gentleman, lying in ED stretcher, in no acute distress. VITAL SIGNS: Temperature 98.5, heart rate 85, respiratory rate 18, oxygen saturation 98% on room air, blood pressure 138/88. HEENT: Pupils are equal. There is scleral icterus. Dry mucous membranes. CHEST: Breath sounds present bilaterally with no added sounds. CVS: S1 and S2. Regular rate and rhythm. ABDOMEN: Soft, nontender, nondistended. Bowel sounds are present. There is no guarding, no rebound. Noe sign is negative. EXTREMITIES: No edema. NEUROLOGIC: He is alert and oriented x3. Able to move all 4 extremities. LABORATORY AND IMAGING DATA: The patient had a CBC that showed a WBC of 11, hemoglobin of 13.3, hematocrit of 40, platelets of 254 with 81% neutrophils. INR is 1.1. Chemistry showed a sodium of 128, potassium of 4.1, chloride of 100 , bicarb of 21, BUN of 15, creatinine of 0.74, glucose 128, lactic acid 0.7, calcium 9. Magnesium 2. LFT showed a total bilirubin of 4.9, direct bilirubin of 3.5, GGT 383, AST 154, ALT 228, alk phos 137. BNP 152. Troponins negative x3. Lipase 129. Urinalysis showed 1+ bilirubin and hepatitis serologies were negative. Chest x-ray showed no evidence for acute disease. EKG done on 04/19/18 at 11: 21 a.m. showed sinus rhythm at 74 beats per minute with no ischemic changes. No significant changes when compared to his prior EKG from November 2017. Abdomen ultrasound: The gallbladder was not visualized and is either contracted or has been surgically removed (the patient does not have a history of cholecystectomy). CT of the abdomen and pelvis showed mild thickening of the wall of the colon at the hepatic flexure with adjacent interstitial stranding, possibly representing mild diverticulitis, although a colon mass cannot be excluded. In addition, there is adjacent contracture of the gallbladder and pneumobilia raising the possibility of a gallbladder or biliary enteric fistula. ASSESSMENT AND PLAN: Mr. Spann is a 73-year-old male with a past medical history of coronary artery disease (40% RCA), status post recent biological aortic valve replacement in October 2017 with postop paroxysmal atrial fibrillation , subdural hematoma, benign prostatic hypertrophy, hyperlipidemia, hypertension , who presents to the emergency room after a second syncopal episode, found to have jaundice. 1. Syncope. The case was discussed with Cardiology and Dr. Miles will see him in consultation. There is concern that the patient may have pauses or arrhythmias associated with his aortic valve replacement. As this is his second syncopal episode after surgery, the plan is to have an event monitor ( external or implantable) arranged to monitor his rhythm. Dr. Miles will see him in consultation and at this point, a repeat echocardiogram does not appear to be indicated, but we will wait for her opinion. The patient will be admitted to telemetry floor and we will continue to monitor his rhythm. He does appear to be mildly dehydrated and he will receive IV fluids. 2. Jaundice. The patient has no complaints of abdominal pain, vomiting, change in bowel movements. He did notice that his urine was darker and he has had an unintentional weight loss of 10 pounds since his surgery. The findings on his CT suggest the possible biliary enteric fistula, but the etiology is unclear. This could be diverticulosis/diverticulitis with a fistula or a colonic malignancy or biliary malignancy. The patient did have a negative colonoscopy in 2014. At this point even though he does not have leukocytosis, fever, or abdominal pain, since he has pneumobilia with no history of biliary tract manipulation, the patient will receive IV Zosyn. The case was discussed with General Surgery and Gastroenterology and the plan at this point is for clear liquid diet, n.p.o. after midnight for an MRCP in the morning to try and delineate this right upper quadrant process better. Depending on the findings, he may need an ERCP or even a transfer to a higher level of care if it comes down to biliary tract surgery. As described above, the patient has no abnormalities on his abdominal physical examination. He is afebrile with stable vital signs, has no leukocytosis. He will be started on Zosyn empirically and we will continue to monitor his LFT. The patient does not appear to have any congestive heart failure exacerbation or any signs of fluid overload to justify hepatic congestion. He has no lower extremity edema, no shortness of breath. His BNP is only 152, so liver congestion does not appear to be playing a role on his jaundice. 3. Paroxysmal atrial fibrillation. The patient is in sinus rhythm at this time and he will be continued on metoprolol. He has been off anticoagulation due to his subdural hematoma. 4. Subdural hematoma. The plan is for repeat CT of the brain in a month. The patient has no neurological complaints or deficits at this time. 5. Hypertension, it is controlled. We will continue his metoprolol. 6. Hyperlipidemia. We will continue atorvastatin. If his LFTs continue to trend up, we will hold the atorvastatin but for now this will be continued. 7. Coronary artery disease, appears to be stable. The patient has no complaints of chest pain, no ischemic EKG changes, his serial troponins are negative. He will be continued on aspirin 81 mg, atorvastatin, and metoprolol. 8. DVT prophylaxis. The patient has a score of 2 on DVT Prophylaxis Risk Assessment Guide, but pharmacological prophylaxis contraindicated in the setting of subdural hematoma, so he will have SCDs. 9. Code status is full. TIME SPENT: Approximately 75 minutes were spent with the patient and 's interview, medical records review, physical examination to complete the admission, more than half of this time was spent [id number] with the patient and coordination of care. [id number]/[facility] #: [id number] AARTI
[2018-04-19] MEDS ORDERED: Aspirin EC TAB* 81 MG TAB.EC PO SCH (22:30)
[2018-04-19] MEDS ORDERED: Metoprolol Succinate XL TAB* 25 MG PO SCH (22:30)
[2018-04-20] MEDS: NS 0.9% 1000 ML* 1,000 ML IV SCH ×2 (05:03→16:37)
[2018-04-20] MEDS: ZOSYN 3.375 GM Q8H per EXTENDED INFUSION IVPB SCH ×4 (05:34→14:03)
[2018-04-20 07:00] LABS: ABS Basophils 0.1 10^3/ul (0-0.2); ABS Eosinophils 0.2 10^3/ul (0-0.6); ABS Lymphocytes 0.8 10^3/ul (1.0-4.8); ABS Monocytes 0.8 10^3/ul (0-0.8); ABS Neutrophils 4.9 10^3/ul (1.5-7.7); ABS Nucleated RBC 0 10^3/ul; Eosinophil % 3.3 % (0-6); Hematocrit 38 % (42-52); Hemoglobin 12.9 g/dl (14.0-18.0); Lymphocyte % 12.3 % (25-47); Mean Corpuscular HGB Conc 34 g/dl (31-36); Mean Corpuscular Hemoglobin 30 pg (27-31); Mean Corpuscular Volume 88 fL (80-94); Mean Platelet Volume 7.1 fL (7.4-10.4); Nucleated Red Blood Cells % 0; Platelet Count 215 10^3/ul (150-450); Red Blood Count 4.35 10^6/ul (4.00-5.40); Red Cell Distribution Width 17 % (10.5-15); White Blood Count 6.8 10^3/ul (3.5-10.8)
[2018-04-20 07:15] LABS: EGFR Non-African American 105.3 (>60)
[2018-04-20] MEDS: Magnesium Oxide TAB* 400 MG PO SCH (08:15)
--- NOTE | 2018-04-20 15:25 | CONS ---
CC: Dr. Rashid * CONSULTATION REPORT: DATE OF CONSULT: 04/20/18 REQUESTING PHYSICIAN: Dr. Mace INDICATION FOR CONSULT: Increased LFTs. NARRATIVE: Mr. Spann is a pleasant 73-year-old gentleman who states that he was feeling well until yesterday morning. He got up and ended up having a syncopal episode. He has had syncopal episodes in the past. His workup for this has been unremarkable to date. He states that he did fall. He felt very nauseated. This is similar to previous syncopal episodes. He came to the emergency room at that point. In the emergency room, he was noted to be jaundiced. He states that his urine has been darker for the past 10 days or so. His also admits to that the whites of his eyes had been yellow for approximately a week, week and half. He denies any abdominal pain, no right upper quadrant pain. He denies any fevers or chills, but no vomiting. He has lost approximately 9 to 10 pounds over the past few months. Of note, he did recently have an aortic valve replacement in the middle of October this year in [place]. He then subsequently developed atrial fibrillation approximately a week later. He had been put on anticoagulation. He unfortunately did have a syncopal episode at some point in the past few months, ended up hitting his head and developed a subdural hematoma. The patient was admitted to the hospital given his syncopal episode and increased LFTs. He denies any new medications. No alcohol intake, no Tylenol, no family history of liver function abnormalities or liver issues. Currently, he feels well. PAST MEDICAL HISTORY: Significant for coronary artery disease, AFib, BPH, hypertension, hyperlipidemia. PAST SURGICAL HISTORY: Includes the aortic valve replacement, vasectomy, tonsillectomy. FAMILY HISTORY: Coronary artery disease. SOCIAL HISTORY: He quit smoking many years ago, rarely drinks alcohol. REVIEW OF SYSTEMS: Twelve systems were reviewed and other than that mentioned in the HPI were unremarkable. PHYSICAL EXAM: Temperature is 98.5, blood pressure is 140/78, pulse is 83, T- max is 101; this was last night at 6 p.m. General: Well-appearing male, in no apparent distress, alert, oriented, pleasant, fluent. HEENT: Mucous membranes are moist without lesions, ulcers, or exudate. Neck is supple. Trachea is midline. Sclerae are icteric. Heart: irregular rate and rhythm. Lungs: Clear to auscultation. Abdomen: Positive bowel sounds. Soft, nontender, nondistended. No hepatosplenomegaly, masses, rebound, or guarding. Skin is warm and dry. DIAGNOSTIC STUDIES/LAB DATA: Labs, of note, his white count went from 11 to 6.8 , hemoglobin is 12.9, platelets of 215. INR is 1.14. Bilirubin went from 4.9 to 3.4. AST went from 154 to 73, ALT went from 228 to 146, and alk phos went from 137 to 123. He had a CT abdomen and pelvis yesterday afternoon in the emergency room which revealed mild thickening of the wall of the colon and hepatic flexure with adjacent interstitial stranding, possibly representing mild diverticulitis, although a colon mass cannot be excluded. Additionally, there is adjacent contraction of the gallbladder and pneumobilia raising the possibility of a gallbladder or a biliary hepatic fistula. He also has hepatic steatosis. The patient did have a completely normal colonoscopy [place] [address] Beltre. The patient also had an MRCP this morning which was unremarkable. The previously identified air in the biliary tree is likely too small to be accurately detected on the MRCP. ASSESSMENT AND PLAN: This is a very pleasant 73-year-old gentleman admitted with syncope and increased liver function tests. I doubt that his syncope is related to his liver or gastrointestinal tract. He does have increased liver function tests and a CT showing possible fistula. The liver function tests are coming down, which does raise the possibility of a passed stone. Additionally, he was febrile and had an elevated white count, was started on antibiotics. He could have been developing cholangitis and he is now being treated for this. Given the fact that the CT shows a possible fistula, however, the MRCP does not , we do consider other further imaging tests. I think, at this point, probably the best test would be an ERCP to image the bile ducts. Unfortunately, we do not have ERCP capabilities at this time, and I think a transfer would be warranted for an ERCP. [id number]/[facility] #: [id number] AARTI
[2018-04-20 16:05] VITALS: BP 142/81
--- NOTE | 2018-04-20 16:22 | CONS ---
CC: Dr. Sivakumar Rashid; Dr. Lizette Miles; Dr. Peter Marcano.* SURGICAL CONSULT NOTE: DATE OF CONSULT: 04/20/18. ATTENDING SURGEON: Dr. Magan Moyer. CHIEF COMPLAINT: Pneumobilia and jaundice. HISTORY OF PRESENT ILLNESS: This is a 73-year-old male with significant recent past medical history of coronary artery disease, severe aortic stenosis status post biologic aortic valve replacement in October 2017 with postoperative atrial fibrillation and initial anticoagulation but then had an episode of syncope and small subdural inflammation, small subdural hematoma (treated conservatively) and discontinuation of anticoagulation. He states that on Monday of this week, he had some mid and upper abdominal fullness, which seemed to be relieved after bowel movement. Yesterday, morning, he noticed his urine being very dark (deep kayla color), which he had never noticed before, but without any other associated GI symptoms. He then had a brief episode of syncope with some presyncopal symptoms. He then presented to the ED. Since admission, he denies any abdominal pain, nausea, vomiting, fever, or chills. He did have bowel movement since admission, which he describes as normal. He did have some liquids to drink last night and is currently NPO for a pending MRCP. He has not had any prior abdominal surgeries. He did undergo colonoscopy with Dr. Beltre in 2014, which was a normal study. The patient states in his history and physical, he apparently had lost 10 pounds unintentionally since the valve surgery in October. PAST MEDICAL HISTORY: Significant for coronary artery disease, aortic stenosis status post biologic valve replacement in October 2017, paroxysmal atrial fibrillation with subsequent anticoagulation, which was discontinued after he had a fall with a small subdural hematoma, which has been monitored and treated conservatively. He is status post TURP and urethral dilatation. He is treated for hyperlipidemia. FAMILY/SOCIAL HISTORY AND REVIEW OF SYSTEMS: As per his admission history and physical. PHYSICAL EXAM: His maximum temperature is 100 in the past 24 hours and this morning 99.4, blood pressure 139/85, pulse 85, respirations 16, room air saturation 97%, height 6 feet and 2 inches, weight 177 pounds. General: Well- nourished, well- developed male in no acute distress. Skin: He is mildly jaundiced. No suspicious rashes or lesions. HEENT: Unremarkable other than for mild scleral icterus. Heart: Regular rate and rhythm with systolic murmur heard throughout the precordium. Lungs: Clear to auscultation. No rales or wheezes. Abdomen: Flat, nondistended. Bowel sounds present, soft, nontender to palpation. No palpable masses or organomegaly. Genitalia and rectal not done. Extremities: No edema. Neurological: Grossly intact. DIAGNOSTIC STUDIES/LAB DATA: Laboratory of note: White blood cell count on admission 11 down to 6.8 this morning, hemoglobin this morning 12.9, chemistries notable for total bilirubin of 4.9 on admission of which 3.5 was direct. The total bilirubin is down to 3.4 this morning. AST 73 (down from 154 ), ALT 146 (down from 228), alkaline phosphatase 123, GGTP 383, CRP 46, lipase 129, CEA is pending. Ultrasound of the gallbladder did not visualize the gallbladder, but did show pneumobilia and otherwise normal ducts. CT of the abdomen and pelvis with oral and intravenous contrasts showed a contracted bladder. There were no calcified gallstones seen. Pneumobilia was noted within otherwise nondilated intra and extrahepatic ducts. Stomach was mildly distended with contrast. There is a moderate sized diverticulum in the proximal duodenum. There is a moderate amount of retained stool present within the colon and mild wall thickening of the proximal transverse colon in the region of hepatic flexure with mild adjacent interstitial stranding. IMPRESSION: Pneumobilia with syncopal episode and some signs and symptoms of infectious and/or inflammatory process including the possibility of a colobiliary fistula, though the etiology of that at this point is undetermined. PLAN: The patient is currently receiving IV Zosyn and is otherwise asymptomatic and/or improving. An MRCP is scheduled and he is scheduled to be seen in consult by Gastroenterology. Depending on the results of the MRCP, there may be a role for endoscopy and/or repeat colonoscopy. Until then, there is no immediate indication for surgery, though we will continue to follow closely. The case was discussed with Dr. Moyer. ОЛЬГА OLIVEIRA [id number]/[facility] #: [id number] AARTI
--- NOTE | 2018-04-20 17:03 | CONS ---
CC: Hospitalist; Dr. Sivakumar Rashid CARDIOLOGY CONSULTATION: DATE OF CONSULT: 04/20/18 REASON FOR CONSULT: Syncope. CHIEF COMPLAINT: Syncope. HISTORY OF PRESENT ILLNESS: Mr. Spann is a 73-year-old patient, who I follow for aortic valve stenosis, he underwent aortic valve replacement surgically with a pericardial valve, 11/09/17. The patient had a syncopal episode, 03/18/18, that day he was very tired and fainted in the bathroom and was unresponsive for 30 seconds. Yesterday, the patient was sitting holding his 5-month-old granddaughter, felt nauseated and he describes it as sick in the stomach and then passed out. He says the symptoms he had prior to both events were the same with the sick feeling. The patient had a subdural hematoma with the first event. He denies having any recent headaches from that. He denies palpitations or racing of the heart. In the emergency room, it was noted that his LFTs were elevated. On exam, he had some mild jaundice and additional ER workup showed bilirubin in the urine. On abdominal CT scan, the gallbladder could not be seen (no history of cholecystectomy). The patient was admitted and he is undergoing workup for his abnormal LFTs, bilirubin, jaundice. Currently, the patient is feeling fine. No dizziness. No nausea. No sick feeling. No orthopnea, no PND. No recent decline in functional ability. PAST MEDICAL HISTORY: The patient has a past medical history of: 1. Aortic stenosis, status post bioprosthetic surgical aortic valve replacement (#23 Magna pericardial valve), 11/09/17. 2. Paroxysmal atrial fibrillation, transient post aortic valve replacement. 3. Hypertension. 4. Coronary artery disease, mild, single vessel of the right coronary artery, on medical management. 5. Fall as above. 6. Subdural hematoma, post fall, 2018. PAST SURGICAL HISTORY: Includes: 1. Tonsillectomy. 2. Vasectomy. 3. TURP. 4. Urethral dilatation. 5. Aortic valve replacement. MEDICATIONS: Outpatient medications include: 1. Metoprolol long acting 25 mg a day. 2. Magnesium oxide 400 mg a day. 3. Atorvastatin 20 mg a day. 4. Aspirin 81 mg a day. 5. Tylenol p.r.n. ALLERGIES: He has no known drug allergies. FAMILY HISTORY: Positive for coronary disease. His father of heart problems at age 84. His mother at age 94 with arthritis. He had a sibling who at 3 months of encephalitis and another sibling who is healthy at age 80. 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 , lives with his , who is supportive. He was a transient smoker, stopped smoking in his 20s. Drinks about 6 alcoholic beverages a week, 1 a day. Physically active on a regular basis. REVIEW OF SYSTEMS: Negative for increased Tylenol intake. Negative for recent headaches, imbalance. No change in appetite or bowel habits. No recent constipation. He did mention that his urine was dark the night before and he thinks he has lost about 5 pounds relatively recently with good appetite. He denies chest pain, pressure, heaviness, exercise intolerance, orthopnea, PND, and all other review of systems was negative. PHYSICAL EXAM: The patient is 6 feet 2 inches, weighs 177 pounds with a BMI of 23. Currently, blood pressure 140/78, pulse is 83 and regular, respiratory rate is 20, oxygen saturation on room air 97%, and T-max 101. General Appearance: Older gentleman, lean, fit, smiling, appearing comfortable, in no acute distress. Psychologically, pleasant and cooperative. Neurologically, awake, alert, and oriented to person, place, and time. Cranial nerves II through XII intact. Grossly normal sensory and motor function in the upper and lower extremities. Normal gait in the room. Skin: Warm, dry. Midline sternotomy scar well healed. Mild jaundice seen in the chest, I do not see on the face, slight tinge in the eyes. No cyanosis appreciated. HEENT: Mucous membranes moist. Neck without thyromegaly or increased JVP. Strong carotid pulses with referred heart sounds that are soft. Lungs were clear with good effort. No wheezes, rales, or rhonchi. Coronary: S1, S2, regular. Soft systolic murmur heard at the apex of the heart, trace systolic murmur heard at the upper sternal border. Abdomen: Active bowel sounds. Nontender. I did not appreciate any mass. Lower extremities were free of edema with 3+ posterior tibial pulses that are symmetrical. DIAGNOSTIC STUDIES/LAB DATA: On admission, white count 11, hematocrit 40, platelets 254. Today, white count 6.8, hemoglobin 12.9, hematocrit 38, and platelets 215. INR 1.14, PTT 28. Sodium 135, potassium 4.2, chloride 104, bicarb 25, BUN 8, creatinine 0.73, calcium 8.7. Total bili 3.4. On admission, sodium was 128, potassium 4.1, BUN 15, creatinine 0.74, glucose 128. Bilirubin 4.9 total, direct 3.5, GGT was 383, AST 154, ALT 228, alk phos 137. Troponin # 1 of 0.00, troponin #2 of 0.00, troponin #3 of 0.00. BNP of 154 on admission, improved to 46 today. CEA 0.9. Lipase 129. Urinalysis; pH 6.0, bilirubin positive, urobilinogen positive, leukocyte esterase negative, nitrite negative. Serology for hepatitis A, B, C is nonreactive or undetected. Chest x-ray: No acute disease. Abdominal ultrasound: Gallbladder not visualized (possible contraction). CT scan of the abdomen and pelvis: Mild thickening of the robertson of the colon at the hepatic flexure and adjacent interstitial stranding, possible mild diverticulosis versus possible colon mass, contraction of the gallbladder and pneumobilia, possible gallbladder or biliary enteric fistula, and hepatic steatosis. EKG on admission 04/19/18 shows normal sinus rhythm, 74 beats a minute, QRS axis - 15, normal AV and IV conduction times, normal ST segments, corrected QT interval 428 milliseconds. Monitor overnight: Normal sinus rhythm. No significant bradycardic episodes. No ectopy. Outpatient studies: Echocardiogram from 03/19/18 done at [facility] showed an ejection fraction of 65% with mildly abnormal diastolic filling , bioprosthetic valve with normal function, mild tricuspid insufficiency, PA pressure 25 mmHg. Cardiac catheterization, 09/22/17, showed patent left main, LAD without significant stenosis, mild 10% to 20% plaque, circumflex was nondominant with plaque of 30% to 35%, the right coronary was dominant with up to 40% lesion seen. IMPRESSION AND PLAN: In summary, Mr. Spann is a 73-year-old gentleman, who has had an aortic valve replacement in October of 2017, complicated early postop by transient atrial fibrillation and he is now presenting with a second syncopal episode occurring abruptly with a prodrome of feeling sick in the abdomen. He has been found to have some liver and biliary abnormalities on labs with raising the possibility of some gallbladder problems for which he is undergoing workup. For the syncope, the differential includes vagal related to the nausea triggering, hypotension and/or bradycardia. Addionally aortic valve replacement can lead to injury in the conduction system from the suturing required for the sewing ring, so he is at potential risk for bradycardic- induced syncope as well. There would be an option for an implantable event monitor as his events are rare and we could put that in this admission to look for the possibility of symptomatic bradycardia contributing. We will follow the ongoing evaluation for his presentation with jaundice. While he is here, I would continue to leave him on the occasional caregiver. [id number]/[facility] #: [id number] AARTI
--- NOTE | 2018-04-20 17:03 | TRS ---
CC: Dr. Rashid; Dr. Miles; Dr. Rangel; Dr. Marcano; Dr. Moyer; Dr. Hardwick, [facility] DATE OF ADMISSION: 04/19/2018. DATE OF TRANSFER: 04/20/2018. TRANSFER DIAGNOSES: 1. 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 2. Syncopal episode. SECONDARY DIAGNOSES: 1. Coronary artery disease with 40 percent disease in the RCA on his last cath on 09/22/2017. 2. Status post aortic valve replacement, #23 Magna pericardial valve on [facility]09[facility] [place]. 3. Paroxysmal atrial fibrillation, post op. 4. Subdural hematoma. 5. BPH, status post TURP. 6. Hyperlipidemia. 7. Hypertension. MEDICATIONS AT THE TIME OF TRANSFER: 1. Acetaminophen 650 mg p.o. q.8 hours prn pain or fever. 2. Aspirin 81 mg p.o. at bedtime. 3. Atorvastatin 30 mg p.o. at bedtime. 4. Magnesium Oxide 400 mg p.o. b.i.d. 5. Metoprolol Succinate 25 mg p.o. at bedtime. 6. Normal saline 100 ml/hour. 7. Zosyn 3.375 gm IV q.8 hours. HOSPITAL COURSE: Mr. Spann is a 73-year-old male with a past medical history as stated above who p resented to the emergency room after a syncopal episode. The patient underwent an aortic valve repla cement at [facility] on 11/09/2017. He was admitted to our facility on November 17 with par oxysmal atrial fibrillation. He was discharged on Lovenox and Warfarin and later on transitioned to Eliquis. The patient states he was doing well after surgery, but mid February he went to [place] whe re he sustained a syncopal episode. He was found to have a small subdural hematoma and his anticoagu lation was discontinued. He has had serial CT's of the brain and although the last one showed a slig ht increase of his subdural from 0.9 cm to 1.3 cm at its greatest dimension at the left parietal conv exity, he was seen in follow-up by Neurosurgery and the recommendation was for a repeat CT of the hea d in a month. On the day of admission, the patient had another syncopal episode witnessed by his . He was sitt ing up, complained of feeling oozy, became pale, and lost consciousness for approximately ten seconds . There was no head trauma. On arrival to the emergency room, the patient was noted to be jaundiced and his work-up included LFT' s that were elevated with a total bilirubin of 4.9, direct bilirubin of 3.5, GGT of 383, AST of 154, ALT of 228, and an alk phos of 137. CT of the abdomen and pelvis showed mild thickening of the wall of the colon at the hepatic flexure with adjacent interstitial stranding, possibly representing mild diverticulitis, although a colon mass cannot be excluded. In addition, there is adjacent contraction of the gallbladder and pneumobilia raising the possibility of a gallbladder or biliary enteric fistu la. Of note is the fact that the patient had a normal colonoscopy in 2014. He was admitted for further evaluation and he was seen in consultation by Gastroenterology (Dr. Davin ayon). His assessment was that the patient was admitted with syncope and increased LFT's. He doubted that the syncope was related to his liver or the gastrointestinal tract. He does have increased live r function tests and a CT showing a possible fistula and as his LFT's are trended down, this does jang se the possibility of a passed stone. In addition, the patient had one episode of fever and elevated white cell count of 11 and was started on antibiotics. He could have been developing cholangitis an d is now being treated for this. He recommended an MRCP that was performed and showed an unremarkabl e study, but the previously identified air in the biliary tree was likely too small to be accurately depicted on the MRCP. Dr. Marcano's recommendation was to pursue an ERCP to image the bile duct and unfortunately we do not have ERCP capabilities at this time, so he recommended transfer. The case wa s discussed with Dr. Hardwick and he accepted the patient in transfer. Of note is the fact that the patient was also seen Cardiology for his syncopal episode. Dr. Miles' s recommendation is for an event monitor placement and this can be pursued after his biliary issues a re elucidated. The plan is for him to follow-up with her as an outpatient to have an implanted or ex ternal event monitor placed. PHYSICAL EXAMINATION: General: The patient is a pleasant, elderly gentleman, sitting up in bed in n o acute distress. Vital Signs: Temperature 98.6, heart rate 74, respiratory rate 16, oxygen saturat ion 99 percent on room air, blood pressure 142/81. HEENT: The patient has mild scleral icterus, but the jaundice is improved when compared to yesterday. CVS: Normal S1, S2, regular rate and rhythm. Chest: Breath sounds bilaterally with no added sounds. Abdomen: Soft, nontender, nondistended. Mike wel sounds are present. Extremities: No edema. Neuro: He is alert and oriented times three, able to move all four extremities. DIET: Clear liquid diet. ACTIVITY: As tolerated. DISPOSITION: To [facility]. STATUS WHILE IN THE HOSPITAL: Inpatient. Please keep in mind this is a summarized version of this patient's hospital stay with a complex past medical history. If you need more information, please feel free to call me at or [facility] e obtain full medical records. Approximately 60 minutes were spent to complete this discharge. [id number]/[facility] #: [id number]
== END 2018-04-20 16:50 | disposition short-term general hospital (02) | DRG 444 ==
LOC: ED 10:54 → MEDTELE 17:01
PROVIDERS: ADMIT Internal Medicine; ATTEND Internal Medicine
DX: K83.3 Fistula of bile duct (principal); S06.5X0A Traumatic subdural hemorrhage without loss of consciousness, initial encounter; K83.09 Other cholangitis; J30.2 Other seasonal allergic rhinitis; R55 Syncope and collapse; K76.0 Fatty (change of) liver, not elsewhere classified; I25.10 Atherosclerotic heart disease of native coronary artery without angina pectoris; I10 Essential (primary) hypertension; N40.0 Benign prostatic hyperplasia without lower urinary tract symptoms; W22.8XXA Striking against or struck by other objects, initial encounter; E78.5 Hyperlipidemia, unspecified; I48.0 Paroxysmal atrial fibrillation; Z98.52 Vasectomy status; Z87.891 Personal history of nicotine dependence; Z82.49 Family history of ischemic heart disease and other diseases of the circulatory system; Z72.89 Other problems related to lifestyle; Y92.9 Unspecified place or not applicable; Z79.82 Long term (current) use of aspirin; Z86.73 Personal history of transient ischemic attack (TIA), and cerebral infarction without residual deficits; Z95.2 Presence of prosthetic heart valve; Z82.61 Family history of arthritis
CPT/HCPCS: 36415; 71045; 74176; 74181; 76376; 76705; 80053; 80074; 81003; 82248; 82378; 82977; 83605; 83690; 83735; 83880; 84484; 85025; 85610; 85652; 85730; 86140; 86301; 87040; 93005; 99284; A9270-GY; J2543

== ENCOUNTER 2018-09-11 09:13 | Observation (INO) | payer MEDICARE, BC ==
--- OUTSIDE RECORDS SUMMARY | 2018-09-11 09:42 | XMS REPORT | Continuity of Care Document ---
:1945 External Reference #:[id number] Author Name Maria Del Rosario Mora Care Team Providers Name Role Phone Sivakumar Rashid MD Primary Care Physician Unavailable Payers Date Identification Numbers Payment Provider Subscriber Effective: 2010 Policy Number: [id number] Medicare Lucas Spann PayID: [id number] [address] [place] [address] Policy Number: [id number] [facility] Lucas Spann PayID: [id number] [address] [place] [address] Advance Directives Description No Information Available Problems [...] 30 minutes or less, subsequent encounter Onset: 04/22/2018 Cholecystectomy Sivakumar Rashid, Active Geno,FACP Note: laparoscopy [place] Onset: 05/18/2018 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 Inactive Inactive: 12/29/2017 Onset: 11/18/2017 Altered mental status Aryan Zapata M.D. Inactive Inactive: 12/29/2017 Family History Date Family Member(s) Observation Comments General Heart Disease General Hypertension General Cancer : (age 84 Father due to Heart Years) Disease Mother Arthritis Siblings 2 Sibling at 3 months of Encephalitis Sibling healthy age 80 Social History Type Date Description Comments Sex Unknown Marital Status Lives With Occupation Retired [email or web address] ETOH Use Denies alcohol use stopped alcohol totally 10/2017 Tobacco Use Start: Unknown End: Patient is a former quit when in his Unknown smoker 20's Recreational Drug Use Denies Drug Use Smoking Status Reviewed: 08/14/18 Patient is a former quit when in his smoker 20's Exercise Type/Frequency Exercises regularly treadmill, jogging, recumbant bike 5-6 days of the week at [facility]. Restarted cardiac rehab 05/10/18 Allergies, Adverse Reactions, Alerts Date Description Reaction Status Severity Comments 01/05/2017 NKDA Active 04/27/2018 Ragweed Active 04/27/2018 Dust Mites Active 04/27/2018 Mold Active 04/27/2018 Pollen Active Medications Medication Date Status Form Strength Qnty SIG Indications Ordering Provider Magnesium Oxide 03/27 Active Capsules 400mg 60cap 1 by mouth I48.0 Tequila S. /2017 s twice a day Maxi N.P. Acetaminophen 12/11 Active Tablets ER 650mg 45tab 1 tab by Sivakumar ER /2017 s mouth q4 D. Rachid, vincent as Geno,HARISHP needed pain Metoprolol 11/23 Active Tablets ER 25mg 90tab 1 tabs by Lizette Succinate ER 24HR s mouth every Ginger, day M.D. Atorvastatin 11/15 Active Tablets 20mg 135ta 1.5 tablets Lizette Calcium bs (30 mg) by Ginger, mouth every M.D. day Aspirin Low Active Tablets DR 81mg 1 by mouth Unknown Dose /0000 every day Eliquis 03/10 Hx Tablets 5mg 180ta 1 by mouth Lizette bs twice a day Bo Miles M.D. 04/10 Coricidin HBP 02/09 Hx Tablets 1 by mouth Sivakumar Cold & Flu /2017 four times a D. Rachid, - day as MChuck,[facility] 03/23 needed Amoxicillin 12/12 Hx Tablets 500mg 4tabs take 4 tablets by Ginger, - mouth 1 hour M.D. 04/17 before dental procedure Lovenox 11/23 Hx Solution 80mg/0.8M 10uni 0.8 I48.1 L ts milliliters Ginger, - injection M.D. 11/30 subq 12 hours Furosemide 11/14 Hx Tablets 40mg 1 by mouth Unknown every day x - 5 days 11/19 Hydrocodone-[place] 11/14 Hx Tablets 5-325mg 1 or 2 tabs Unknown taminophen by mouth - every 4 11/24 hours needed for pain Losartan 11/07 Hx Tablets 25mg 90tab 1 by mouth Sivakumar Potassium s every day Bo Kulkarni M.D.,[facility] 11/22 Atorvastatin 11/07 Hx Tablets 40mg 90tab take 1 Sivakumar Calcium s tablet by Cornelio Rashid, - mouth at M.DJamil,[facility] 11/15 bedtime Saw Tok 11/07 Hx Capsules 450mg 1 by mouth Sivakumar /2017 twice a day Bo Kulkarni M.D.,[facility] 11/15 Losartan 07/10 Hx Tablets 50mg 90tab 1/2 by mouth Sivakumar Potassium s every day Bo Kulkarni M.D.,[facility] 11/07 Fluticasone 01/16 Hx Suspension 50mcg/Act 16gm 2 sprays H81.12 Oseas Propionate each nostril JULISA Alvarado - qd. 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 11/07 Wheat Germ Oil 00/ Hx Oil daily Unknown /0000 - 11/22 Ascorbic Acid 0000 Hx Tablets 500mg 1 by mouth Unknown /0000 every day - 12/07 Theragran-M 00 Hx Tablets 1 by mouth Unknown /0000 every day - 11/24 Docusate Sodium Hx Capsules 100mg 1 tab bid Unknown /0000 - 12/07 Ferrous 00 Hx Tablets 324(38Fe) take one Unknown Gluconate /0000 mg tablet by - mouth twice 12/07 Folic Acid Hx Tablets 1mg 1 by mouth Unknown /0000 every day - 12/07 Cozaar 00 Hx Tablets 25mg 1 by mouth Unknown /0000 every day - 11/14 Metoprolol 00 Hx Tablets 25mg 1 by mouth Unknown Tartrate /0000 twice a day - 11/23 Coumadin 0000 Hx Tablets 5mg 180ta as directed Sivakumar /0000 Bo Louie M.D.,FACP 03/10 Tab-A-Katelynn 0000 Hx Tablets 1 by mouth Unknown /0000 every day - 12/29 Immunizations CPT Code Status Date Vaccine Lot # [id number] Given 03/10/2018 Influenza Virus Vaccine, Quadrivalent, Split, Preservative Free 74115 Given 03/06/2018 Influenza Virus Vaccine, Quadrivalent, Split, Preservative Free 43025 Given 07/10/2017 Pneumococcal Conjugate Vaccine 13 Valent For [id number] Intramuscular Use 30458 Given 04/04/2017 Influenza Virus Vaccine, Quadrivalent, Split, Preservative Free 59389 Given 11/28/2012 Tdap - Tetanus/Diptheria/Acellular Pertussis 11909 Given 06/02/2010 Pneumonia Vaccine Vital Signs Date Vital Result Comment 08/14/2018 2:29pm Height 73.75 inches 6'1.75" Weight 185.00 lb no shoes Heart Rate 76 /min BP Systolic Standing 108 mmHg lue reg cuff BP Diastolic Standing 64 mmHg lue reg cuff BP Systolic Lying Down 110 mmHg lue reg cuff BP Diastolic Lying Down 64 mmHg lue reg cuff Respiratory Rate 14 /min BMI (Body Mass Index) 23.9 kg/m2 Ejection Fraction 65% echo. 03/19/18 05/18/2018 11:00am Height 73.75 inches 6'1.75" Weight 177.00 lb BP Systolic Sitting 130 mmHg BP Diastolic Sitting 80 mmHg Pain Level 1 BMI (Body Mass Index) 22.9 kg/m2 05/10/2018 1:06pm Height 73.75 inches 6'1.75" Weight 177.38 lb no shoes Heart Rate 76 /min rt radial, regular BP Systolic Sitting 158 mmHg lt arm BP Diastolic Sitting 90 mmHg lt arm BMI (Body Mass Index) 22.9 kg/m2 Ejection Fraction 65% echo 03/19/18 05/09/2018 4:21pm Height 73.75 inches 6'1.75" Weight 176.00 lb Heart Rate 78 /min BP Systolic Sitting 140 mmHg BP Diastolic Sitting 86 mmHg BP Systolic Recheck 132 mmHg BP Diastolic Recheck 84 mmHg Body Temperature 96.9 F O2 % BldC Oximetry 98 % BMI (Body Mass Index) 22.7 kg/m2 04/27/2018 10:03am Height 73.75 inches 6'1.75" Weight 178.00 lb with out shoes Heart Rate 80 /min reg with ectopy BP Systolic Sitting 126 mmHg Lue reg cuff BP Diastolic Sitting 70 mmHg Lue reg cuff BP Systolic Standing 120 mmHg Lue reg cuff BP Diastolic Standing 80 mmHg Lue reg cuff Respiratory Rate 16 /min BMI (Body Mass Index) 23.0 kg/m2 Ejection Fraction 65% date 03/19/18 ECHO 04/24/2018 1:47pm Height 73.75 inches 6'1.75" Weight 179.00 lb Heart Rate 85 /min BP Systolic Sitting 148 mmHg BP Diastolic Sitting 90 mmHg BP Systolic Recheck 150 mmHg BP Diastolic Recheck 84 mmHg Body Temperature 96.8 F O2 % BldC Oximetry 98 % BMI (Body Mass Index) 23.1 kg/m2 04/18/2018 1:16pm Height 73.75 inches 6'1.75" Heart [...] Date Facility Test Result H/L Range Note Laboratory test [facility] Troponin-I 0.00 ng/mL < 0.04 1 finding [address] (TnI) [place] [address] [phone] Hepatitis Acute [facility] Hepatitis B Nonreactive Nonreactive Panel [address] [place] [address] Antigen [phone] Hepatitis B Core IgM Nonreactive Nonreactive Hepatitis A AB IgM Nonreactive Nonreactive HCV Index < 0.0 Index Hepatitis C Antibody Nonreactive Nonreactive Laboratory test 04/19/2018 [facility] GGTP 383 U/L High 9- 64.[address] [place] [address] [phone] Laboratory test 04/19/2018 [facility] B-Type 152 High <=[address] Natriuretic pg/[place] [address] Peptide BNP [phone] Comp Metabolic 04/19/2018 [facility] Sodium 128 Low 135-[address] mmol/[place] [address] [phone] Potassium 4.1 mmol/L N 3.5-5.0 Chloride 100 mmol/L Low 101-111 Co2 Carbon Dioxide 21 mmol/L Low 22-32 Anion Gap 7 mmol/L N 2-11 Glucose 128 mg/dL High 70-100 Blood Urea Nitrogen 15 mg/dL N 6-24 Creatinine 0.74 mg/dL N 0.67-1.17 BUN/Creatinine Ratio 20.3 High 8-20 Calcium 9.0 mg/dL N 8.6-10.3 Total Protein 6.6 g/dL N 6.4-8.9 Albumin 4.0 g/dL N 3.2-5.2 Globulin 2.6 g/dL N 2-4 Albumin/Globulin Ratio 1.5 N 1-3 Total Bilirubin 4.90 mg/dL High 0.2-1.0 Alkaline Phosphatase 137 U/L High 34-104 Alt 228 U/L High 7-52 Ast 154 U/L High 13-39 Egfr Non- 103.7 >60 Egfr 125.5 >60 2 Laboratory test 04/19/2018 [facility] Magnesium 2.0 mg/dL N 1.9-2.[address] [place] [address] [phone] Troponin-I (TnI) 0.00 ng/mL <0.04 3 Lipase 129 U/L High 11.0-82.0 Urinalysis Profile 04/19/2018 [facility] Urine Color Juanis [address] [place] [address] [phone] Urine Appearance Clear Urine Specific Sherrard 1.019 N 1.010-1.030 Urine pH 6.0 N 5-9 Urine Urobilinogen Positive Abnormal Negative Urine Ketones Negative Negative Urine Protein Negative Negative Urine Leukocytes Negative Negative Urine Blood Negative Negative Urine Nitrite Negative Negative Urine Bilirubin 1+ Abnormal Negative Urine Glucose Negative Negative CBC Auto 04/19/2018 [facility] White Blood 11.0 10^3/uL High 3.5-10.[address] [place] [address] [phone] Red Blood Count 4.50 10^6/uL N 4.00-5.40 Hemoglobin 13.3 g/dL Low 14.0-18.0 Hematocrit 40 % Low 42-52 Mean Corpuscular Volume 88 fL N 80-94 Mean Corpuscular Hemoglobin 30 pg N 27-31 Mean Corpuscular HGB Conc 34 g/dL N 31-36 Red Cell Distribution Width 16 % High 10.5-15 Platelet Count 254 10^3/uL N 150-450 Mean Platelet Volume 6.7 fL Low 7.4-10.4 Abs Neutrophils 9.0 10^3/uL High 1.5-7.7 Abs Lymphocytes 0.7 10^3/uL Low 1.0-4.8 Abs Monocytes 1.2 10^3/uL High 0-0.8 Abs Eosinophils 0.1 10^3/uL N 0-0.6 Abs Basophils 0 10^3/uL N 0-0.2 Abs Nucleated RBC 0 10^3/uL Granulocyte % 81.6 % N 38-83 Lymphocyte % 6.4 % Low 25-47 Monocyte % 10.7 % High 0-7 Eosinophil % 0.9 % N 0-6 Basophil % 0.4 % N 0-2 Nucleated Red Blood Cells % 0 Inr/Protime 04/19/2018 [facility] Inr 1.14 High 0.77-1.[address] [place] [address] [phone] Laboratory test 04/19/2018 [facility] Partial 28.1 N 26.0- 36.[address] [place] [address] Time PTT [phone] Basic Metabolic 03/27/2018 [facility] Sodium 133 mmol/L Low 135-[address] [place] [address] [phone] Potassium 4.9 mmol/L N 3.5-5.0 Chloride 100 mmol/L Low 101-111 Co2 Carbon Dioxide 28 mmol/L N 22-32 Anion Gap 5 mmol/L N 2-11 Glucose 107 mg/dL High 70-100 Blood Urea Nitrogen 17 mg/dL N 6-24 Creatinine 0.77 mg/dL N 0.67-1.17 BUN/Creatinine Ratio 22.1 High 8-20 Calcium 9.2 mg/dL N 8.6-10.3 Egfr Non- 99.0 >60 Egfr 119.8 >60 4 Laboratory test 03/27/2018 [facility] Magnesium 2.1 mg/dL N 1.9-2.7 finding [address] [place] [address] [phone] Protime W/ Inr 03/13/2018 [employer] In House Prothrombin Time 20.5 Inr 1.7 Protime W/ Inr 03/05/2018 [employer] In House Prothrombin Time 36.6 Inr 3.0 Protime W/ Inr 02/15/2018 [employer] In House Prothrombin Time 24.3 Inr 2.0 Protime W/ Inr 02/05/2018 [employer] Libr[employer] In House Prothrombin Time 23.6 Inr 1.9 Protime W/ Inr 01/22/2018 Collection Development Librarian In House Prothrombin Time 24.8 Inr 2.0 Protime W/ Inr 01/08/2018 [employer] Development Librarian In House Prothrombin Time 27.4 Inr 2.2 Protime W/ Inr 12/29/2017 [employer] Development Librarian In House Prothrombin Time 34.3 Inr 2.8 Protime W/ Inr 12/22/2017 [employer]ibr[employer] In House Prothrombin Time 23.6 Inr 1.9 Lipid Profile 12/19/2017 [facility] Triglycerides 108 mg/dL 5 (Trig/Chol/HDL) [address] [place] [address] [phone] Cholesterol 171 mg/dL 6 HDL Cholesterol 58.5 mg/dL 7 LDL Cholesterol 91 mg/dL 8 Basic Metabolic Panel 12/19/2017 [facility] Sodium 138 mmol/L N 135-145 [address] [place] [address] [phone] Potassium 4.5 mmol/L N 3.5-5.0 Chloride 105 mmol/L N 101-111 Co2 Carbon Dioxide 26 mmol/L N 22-32 Anion Gap 7 mmol/L N 2-11 Glucose 97 mg/dL N 70-100 Blood Urea Nitrogen 19 mg/dL N 6-24 Creatinine 0.81 mg/dL N 0.67-1.17 BUN/Creatinine Ratio 23.5 High 8-20 Calcium 9.5 mg/dL N 8.6-10.3 Egfr Non- 93.7 >60 Egfr 113.3 >60 9 Protime W/ Inr 12/18/2017 [employer] In House Prothrombin Time 19.8 Inr 1.6 Protime W/ Inr 12/11/2017 [employer] In House Prothrombin Time 16.1 Inr 1.3 Protime W/ Inr 12/01/2017 [employer] In House Prothrombin Time 27.1 Inr 2.2 Inr/Protime 11/30/2017 [facility] Inr 2.53 High 0.77-1.[address] [place] [address] [phone] Protime W/ Inr 11/28/2017 [employer] In House Prothrombin Time 39.7 Inr 3.2 Protime W/ Inr 11/27/2017 Other Rendering Inr 4.3 Protime W/ Inr 11/24/2017 [employer] In House Prothrombin Time 18.6 Inr 1.5 Inr/Protime 11/22/2017 [facility] Inr 1.44 High 0.77-1.[address] [place] [address] [phone] CBC Auto Diff 09/18/2017 [facility] White Blood 8.7 N 3.5- 10.[address] Count 10^3/[place] [address] [phone] Red Blood Count 4.96 10^6/uL N 4.0-5.4 [...] Red Blood Cells % 0.1 Inr/Protime 09/18/2017 [facility] Inr 0.90 N 0.77-1.[address] [place] [address] [phone] Basic Metabolic 09/18/2017 [facility] Sodium 136 mmol/L Low 139-145 Panel [address] [place] [address] [phone] Potassium 4.1 mmol/L N 3.5-5.0 Chloride 100 mmol/L Low 101-111 Co2 Carbon Dioxide 28 mmol/L N 22-32 Anion Gap 8 mmol/L N 2-11 Glucose 97 mg/dL N 70-100 Blood Urea Nitrogen 16 mg/dL N 6-24 Creatinine 0.95 mg/dL N 0.67-1.17 BUN/Creatinine Ratio 16.8 N 8-20 Calcium 9.5 mg/dL N 8.6-10.3 Egfr Non- 77.9 >60 Egfr 100.2 >60 11 Cath Panel 09/18/2017 [facility] Partial 29.9 seconds N 26.0- 36.[address] [place] [address] PTT [phone] Basic Metabolic 08/01/2017 [facility] Sodium 135 mmol/L N 133- [address] [place] [address] [phone] Potassium 4.4 mmol/L N 3.5-5.0 Chloride 103 mmol/L N 101-111 Co2 Carbon Dioxide 26 mmol/L N 22-32 Anion Gap 6 mmol/L N 2-11 Glucose 103 mg/dL High 70-100 Blood Urea Nitrogen 16 mg/dL N 6-24 Creatinine 0.89 mg/dL N 0.67-1.17 BUN/Creatinine Ratio 18.0 N 8-20 Calcium 9.7 mg/dL N 8.6-10.3 Egfr Non- 84.0 >60 Egfr 108.1 >60 12 Lipid Profile 08/01/2017 [facility] Triglycerides 69 mg/dL 13 (Trig/Chol/HDL) [address] [place] [address] [phone] Cholesterol 186 mg/dL 14 HDL Cholesterol 61.8 mg/dL 15 LDL Cholesterol 110 mg/dL 16 Laboratory 08/01/2017 [facility] Hepatitis C Nonreactive Nonreactive test finding [address] Antibody [place], [place] [address] [phone] Lipid Profile 01/12/2017 [facility] Triglycerides 85 mg/dL N 17 (Trig/Chol/HD [address]) [place] [address] [phone] Cholesterol 187 mg/dL N 18 HDL Cholesterol 59.3 mg/dL N 19 LDL Cholesterol 111 mg/dL N 20 Liver Function 01/12/2017 [facility] Direct 0.10 mg/dL N 0.03- 0.18 Panel [address] [place] [address] [phone] Indirect Bilirubin 0.6 mg/dL N 0.3-1.0 Comp Metabolic Panel 01/12/2017 [facility] Sodium 135 mmol/L N 133-[address] [place] [address] [phone] Potassium 4.9 mmol/L N 3.5-5.0 Chloride 103 [...] 85.4 N >60 Egfr 109.8 N >60 21 1 Troponin-I testing on Plasma Separator Tubes (PST) has a known false positive rate of 0.20-0.40%. All positive troponins reflex immediate secondary confirmatory testing. 2 Because ethnic data is not always [...] 5 Kidney failure <15 (or dialysis) 3 Troponin-I testing on Plasma Separator Tubes (PST) has a known false positive rate of 0.20-0.40%. All positive troponins reflex immediate secondary confirmatory testing. 4 Because ethnic data is not always readily [...] 15-29 5 Kidney failure <15 (or dialysis) 5 Desirable: <150 Borderline High: 150-199 High: 200-499 Very High: >500 6 Desirable: <200 Borderline High: 200-239 High: >239 7 Low: <40 Desirable: 40-60 High: >60 8 Desirable: <100 Near Optimal: 100-129 Borderline High: 130-159 High: 160-189 Very High: >189 9 Because ethnic data is not always [...] 5 Kidney failure <15 (or dialysis) 10 CALL RESULTS 4590 [place] 4591 11 Because ethnic data is not always readily [...] 15-29 5 Kidney failure <15 (or dialysis) 12 Because ethnic data is not always [...] 5 Kidney failure <15 (or dialysis) 13 Desirable: <150 Borderline High: 150-199 High: 200-499 Very High: >500 14 Desirable: <200 Borderline High: 200-239 High: >239 15 Low: <40 Desirable: 40-60 High: >60 16 Desirable: <100 Near Optimal: 100-129 Borderline High: 130-159 High: 160-189 Very High: >189 17 Desirable <150 Borderline high 150-199 High 200-499 Very High >500 18 Desirable <200 Borderline high 200-239 High >239 19 Low <40 Desirable: 40-60 High: >60 20 Desirable: <100 mg/dL Near Optimal: 100-129 mg/dL Borderline High: 130-159 mg/dL High: 160-189 mg/dL Very High: >189 mg/dL 21 Because ethnic data is not always readily [...] (or dialysis) Procedures Date Code Description Status 05/02/2018 49575 Implant Cardiac Loop Recorder Completed 03/27/2018 97338 EKG Tracing & Interpretation Completed 12/07/2017 71274 EKG Tracing & Interpretation Completed 12/01/2017 20377 EKG, Interpretation Only Completed 11/30/2017 64333 Moderate Sedation Services; Same Phys Intl 15 Mins; PT Completed >=5 Years 11/30/2017 69544 Color Flow Doppler/Interp & Reprt Completed 11/30/2017 58194 Pulse Wave/Continuous-Interp.RPT Completed 11/30/2017 73288 Echocardiography, Transesophageal, Real Time W/Image 2D Completed W/W/O M-M 11/30/2017 36359 Cardioversion Completed 11/23/2017 47935 EKG Tracing & Interpretation Completed 11/17/2017 61196 EKG Tracing & Interpretation Completed 09/22/2017 48905 Cath PLMT&NJX L Ventriculog Img S&I Completed 09/15/2017 74483 EKG Tracing & Interpretation Completed 07/27/2017 73812 ECHO Transthorasic Realtime 2D W Doppler & Color Flow Completed Hosp 03/21/2017 67530 Closed Treatment Radial Head Or Neck FX W/O Completed Manipulation 01/16/2017 82390 EKG Tracing & Interpretation Completed 07/30/2015 05533 ECHO Transthoracic, Real-Time 2D With Doppler And Color Completed Flow 11/05/2014 [id number] Colonoscopy Completed 07/17/2013 51673 ECHO Transthoracic, Real-Time 2D With Doppler And Color Completed Flow Encounters Type Date Location Provider Dx Diagnosis Office Visit 05/18/2018 Neurosurgery Gentry Rangel, S06.5x1S [facility] subdr hem w 11:00a Services Of Holly MChuck Loc of 30 minutes or less, sequela Office Visit 05/10/2018 [facility] Tequila German, I48.0 Paroxysmal atrial 1:00p N.P. 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 Office Visit 05/09/2018 4:00p [facility] Internal Sivakumar Grimes K81.9 Cholecystitis, Ced Rashid M.D.,FACP unspecified [address] I48.0 Paroxysmal atrial fibrillation I10 Essential (primary) hypertension S06.5x1S [facility] subdr hem w Loc of 30 minutes or less, sequela Office Visit 04/27/2018 10:00a [facility] Tequila German, R55 Syncope and Of [employer] Development Librarian N.PJamil collapse I25.10 Athscl heart disease of [place] coronary artery w/o ang pctrs I10 Essential (primary) hypertension E78.2 Mixed hyperlipidemia Z95.2 Presence of prosthetic heart valve Office Visit 04/24/2018 [facility] Internal Sivakumar Grimes K81.9 Cholecystitis, 1:40p Ced Rashid M.D.,FACP unspecified [place] S06.5x1D [facility] subdr hem w Loc of 30 minutes or less, subs I48.0 Paroxysmal atrial fibrillation Office Visit 04/20/2018 2:55p [facility] Lizette Miles, R55 Syncope and Of Holly Lora collapse Z95.2 Presence of prosthetic heart valve Office Visit 04/20/2018 7:00a Surgical Jorge Esqueda K83.8 Other specified [facility] ОЛЬГА Otto diseases of biliary tract R17 Unspecified jaundice R55 Syncope and collapse Office Visit 04/20/2018 10:52a [facility] Ebonie R1Reena Unspecified Assoc,dawson Tejada M.D. jaundice Hospitalists R55 Syncope and collapse I25.10 Athscl heart disease of [place] coronary artery w/o ang pctrs I48.0 Paroxysmal atrial fibrillation S06.5x1D [facility] subdr hem w Loc of 30 minutes or less, subs I10 Essential (primary) hypertension E78.2 Mixed hyperlipidemia Office Visit 04/19/2018 10:51a [facility] Ebonie Tejada, R55 Syncope and Assoc,dawson Lora collapse Hospitalists R17 Unspecified jaundice I48.0 Paroxysmal atrial fibrillation S06.5x1A [facility] subdr hem w Loc of 30 minutes or less, init I10 Essential (primary) hypertension E78.2 Mixed hyperlipidemia I25.10 Athscl heart disease of [place] coronary artery w/o ang pctrs Office Visit 04/18/2018 1:10p Neurosurgery Gentry Rangel, S06.5x1D [facility] Lora hem w Loc of 30 minutes or less, subs S06.5x1A [facility] subdr hem w Loc of 30 minutes or less, init Office Visit 04/16/2018 11:00a [facility] Internal Sivakumar Grimes S06.5x1D [facility] subdr Ced Rashid M.D.,FACP hem w Loc of [address] 30 minutes or less, subs I48.0 Paroxysmal atrial fibrillation Office Visit 03/27/2018 1:30p [facility] Tequila Suárez I48.0 Paroxysmal atrial Of Holly German NAgatha fibrillation 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 Z95.2 Presence of prosthetic heart valve E78.2 Mixed hyperlipidemia S06.5x1D [facility] subdr hem w Loc of 30 minutes or less, subs Office Visit 2018 11:00a [facility] Internal Sivakumar Grimes S06.5x1D [facility] subdr Ced Rashid M.D.,FACP hem w Loc of [address] 30 minutes or less, subs I48.0 Paroxysmal atrial fibrillation 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 Office Visit 03/13/2018 2:20p [facility] Ninoska Grimes I48.0 Paroxysmal atrial Ced Rashid M.D.,FACP fibrillation [place] I10 Essential (primary) hypertension Office Visit 02/16/2018 2:00p [facility] Lizette Miles, Z95.2 Presence of Of Holly Lora prosthetic heart valve I48.0 Paroxysmal atrial fibrillation J06.9 Acute upper respiratory infection, unspecified Office Visit 12/29/2017 4:40p [facility] Ninoska Grimes I48.0 Paroxysmal atrial Ced Rashid M.D.,FACP fibrillation [address] Z79.01 group home (current) use of anticoagulants E78.2 Mixed hyperlipidemia I10 Essential (primary) hypertension Office Visit 12/07/2017 1:00p [facility] Tequila Suárez Z95.2 Presence of Of Holly German N.Mikey prosthetic heart valve I48.0 Paroxysmal atrial fibrillation 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 fibrillation Z95.2 Presence of prosthetic heart valve I35.0 Nonrheumatic aortic (valve) stenosis R42 Dizziness and giddiness Office Visit 11/18/2017 [facility] Lizette Miles I48.91 Unspecified atrial 9:53a Of [facility] M.D. fibrillation Office Visit 11/18/2017 [facility] R41.82 Altered mental 9:29a dawson Martini M.D. status, Hospitalists unspecified I48.91 Unspecified atrial fibrillation Office Visit 11/17/2017 [facility] I48.91 Unspecified 9:28a dawson Martini M.D. atrial Hospitalists fibrillation R41.82 Altered mental status, unspecified I25.10 Athscl heart disease of que[place] coronary artery w/o ang pctrs Z95.2 Presence of prosthetic heart valve Office Visit 11/17/2017 8:20a [facility] Lizette Miles I35.0 Nonrheumatic Of [facility] AT [facility] M.D. aortic (valve) stenosis Z95.2 Presence of prosthetic heart valve R42 Dizziness and giddiness I10 Essential (primary) hypertension I25.10 Athscl heart disease of que[place] coronary artery w/o ang pctrs I48.0 Paroxysmal atrial fibrillation Office Visit 09/29/2017 3:15p [facility] Tequila Suárez I35.0 Nonrheumatic Of [facility] Rossy German aortic (valve) stenosis I25.10 Athscl heart disease of que[place] coronary artery w/o ang pctrs E78.5 Hyperlipidemia, unspecified I10 Essential (primary) hypertension Office Visit 09/15/2017 9:40a [facility] Lizette Miles I35.0 Nonrheumatic Of Collection Development Librarian AT [facility] MJamilDJamil aortic (valve) stenosis E78.5 Hyperlipidemia, unspecified I10 Essential (primary) hypertension Office Visit 08/08/2017 [facility] S52.124D Nondisp fx of head 8:30a Services Of MD Adriana of rebeka bullock, subs for C.MMorteza clos fx w routn heal Office Visit 07/10/2017 [facility] Internal Sivakumar Grimes I10 Essential 2:00p Medicine - [place], (primary) Cruz Lora,FACP hypertension I35.0 Nonrheumatic aortic (valve) stenosis E78.5 Hyperlipidemia, unspecified R49.8 Other voice and resonance disorders Z23 Encounter for immunization Office Visit 01/16/2017 2:00p [facility] Internal Oseas Alvarado NP R42 Dizziness and Medicine - [place] H81.12 Benign paroxysmal vertigo, left ear Office Visit 01/05/2017 1:00p [facility] Internal Amara I10 Essential (primary ) Medicine - JULISA Grissom hypertension [address] E78.5 Hyperlipidemia, unspecified Plan of Treatment Future Appointment(s):10/29/2018 2:00 pm - Ica ECHO Schedule at [facility]11/02/2018 2:20 pm - Lizette Miles M.D. at [facility]11/13/2018 1:20 pm - Elizabeth Berry MD at [facility] Internal Medicine [facility]08/14/2018 - Tequila German, N.P.I10 Essential (primary) pkjppucmyugzV43.10 Atherosclerotic heart disease of quechan coronary artery withFollow up:OV LS 3-4 moRecommendations:Continue Metoprolol 25mg daily Continue 81mg odrzgY46.818 Presence of other cardiac implants and trzkucI64.2 Mixed bdapnphromilaqP41.2 Presence of prosthetic heart valveNew Orders: Echocardiogram, Scheduled: 10/29/18
--- NOTE | 2018-09-11 09:49 | ED ---
Syncope/Near Syncope - HPI Summary HPI Summary: A 73 y/o male brought in by [facility] ambulance presents to [facility] with a chief complaint of syncope witnessed this morning while eating breakfast. He claims that before his syncopal episode he felt foggy and his legs and hands were cramping and are still cramping. He rates his pain as a 0/10 in severity. He reports a Hx of syncope, but after having his gallbladder removed in March 2018, he has not had a syncopal episode until today. He also reports that he had surgery on his aortic heart valve in October 2017 and was discovered to have A- fib one week later. Dr. Miles did a cardioversion and since then he claims that he has not had a cardiac problem. He reports taking magnesium, aspirin, Metoprorol and Lipitor. He claims that he was frustrated yesterday because he lost his car keys but today he felt fine, and ate before going to the dinner. He denies swelling of his legs. His PCP is Dr. Elizabeth Berry. - History Of Current Complaint Chief Complaint: EDSyncope Time Seen by Provider: 09/11/18 09:18 Hx Obtained From: Patient Onset/Duration: Sudden Onset, Resolved Timing: Intermittent Episode Lasting - unknown Context: Witnessed Activity At Onset: Other - eating breakfast Associated Head Trauma: No Aggravating Factor(s): Nothing Alleviating Factor(s): Nothing Associated Signs And Symptoms: Negative - leg swelling, Other - "feeling foggy" , leg and hand cramps - Allergies/Home Medications Allergies/Adverse Reactions: Allergies Allergy/AdvReac Type Severity Reaction Status Date / Time No Known Drug Allergies Allergy Unknown Verified 04/19/18 11:18 Reaction Details seasonal allergies Allergy Congestion Uncoded 04/19/18 11:18 PMH/Surg Hx/FS Hx/Imm Hx Cardiovascular History: Reports: Hx Coronary Artery Disease, Hx Hypercholesterolemia, Hx Hypertension, Hx Valvular Heart Disease Denies: Hx Pacemaker/ICD Sensory History: Reports: Hx Contacts or Glasses Denies: Hx Hearing Aid Opthamlomology History: Reports: Hx Contacts or Glasses Neurological History: Reports: Hx Seizures, Hx Transient Ischemic Attacks (TIA) Denies: Hx Headaches Psychiatric History: Denies: Hx Panic Disorder - Surgical History Surgery Procedure, Year, and Place: AORTIC VALVE REPLACEMENT,VASECTOMY,TOE STRAIGHTENING, CARDIO CONVERSION Infectious Disease History: No Infectious Disease History: Denies: Hx Clostridium Difficile, Hx Hepatitis, Hx Human Immunodeficiency Virus (HIV), Hx of Known/Suspected MRSA, Hx Shingles, Hx Tuberculosis, History Other Infectious Disease, Traveled Outside the [place] in Last 30 Days - Family History Known Family History: Negative: Hypertension, Diabetes - Social History Alcohol Use: None Alcohol Amount: 1 beer per day (prior to surgery) Substance Use Type: Reports: None Smoking Status (MU): Never Smoked Tobacco Review of Systems Negative: Fever Positive: Other - positive: leg and hand cramps. Negative: Edema Neurological: Other - positive: feeling "foggy" Positive: Syncope All Other Systems Reviewed And Are Negative: Yes Physical Exam - Summary Physical Exam Summary: Appearance: The patient is well-nourished in no acute distress and in no acute pain. Skin: The skin is warm and dry and skin color reflects adequate perfusion. HEENT: The head is normocephalic and atraumatic. The pupils are equal and reactive. The conjunctivae are clear and without drainage. Nares are patent and without drainage. Mouth reveals moist mucous membranes and the throat is without erythema and exudate. The external ears are intact. The ear canals are patent and without drainage. The tympanic membranes are intact. Neck: The neck is supple with full range of motion and non-tender. There are no carotid bruits. There is no neck vein distension. Respiratory: Chest is non-tender. Lungs are clear to auscultation and breath sounds are symmetrical and equal. Cardiovascular: Heart has a mildly irregular heartbeat. Fairly loud systolic ejection murmur. There is no peripheral edema and pulses are symmetrical and equal. Abdomen: The abdomen is soft and non-tender. There are normal bowel sounds heard in all four quadrants and there is no organomegaly palpated. Musculoskeletal: There is no back tenderness noted. Extremities are non-tender with full range of motion. There is good capillary refill. There is no peripheral edema or calf tenderness elicited. Neurological: Patient is alert and oriented to person, place and time. The patient has symmetrical motor strength in all four extremities. Cranial nerves are grossly intact. Deep tendon reflexes are symmetrical and equal in all four extremities. Psychiatric: The patient has an appropriate affect and does not exhibit any anxiety or depression. Triage Information Reviewed: Yes Vital Signs On Initial Exam: Initial Vitals Temp Pulse Resp BP Pulse Ox 97.2 F 55 15 126/70 98 04/16/19 09:15 09/11/18 09:15 09/11/18 09:15 09/11/18 09:15 09/11/18 09:15 Vital Signs Reviewed: Yes Diagnostics - Vital Signs Vital Signs Temp Pulse Resp BP Pulse Ox 09/11/18 09:23 55 09/11/18 09:15 97.2 F 55 15 126/70 98 - Laboratory Result Diagrams: 09/11/18 09:51 09/11/18 09:51 Lab Statement: Any lab studies that have been ordered have been reviewed, and results considered in the medical decision making process. - EKG 09:49 Cardiac Rate: NL - 62 bpm EKG Rhythm: Sinus Rhythm Summary of EKG Findings: normal sinus rhythm at 62 bpm with PVCs. Re-Evaluation - Re-Evaluation First Eval Re-Evaluation Time: 11:31 Change: Unchanged Comment: Discussed results and plan for admission Course/Dx Course Of Treatment: Mr. Spann had a sudden syncopal episode this morning just prior to eating his breakfast. He had had some juice and food at home prior to going to a restaurant. The only symptom he had prior to the event was feeling a little bit foggy in his thinking. He was nontoxic in appearance with stable vital signs here. He was kept on the monitor and noted to have frequent PVCs but otherwise his workup was negative. I spoke with Dr. Pacheco who recommended admission to the hospital for further monitoring and possible workup. - Diagnoses Provider Diagnoses: Syncope, PVCs (premature ventricular contractions) - Physician Notifications Discussed Care of Patient With: Rafita Pacheco Time Discussed With Above Provider: 11:31 Instructed by Provider To: Other - Recommends admission Discharge - Sign-Out/Discharge Documenting (check all that apply): Patient Departure - admit Patient Received Moderate/Deep Sedation with Procedure: No - Discharge Plan Condition: Fair Disposition: ADMITTED TO [facility] - Billing Disposition and Condition Condition: FAIR Disposition: Admitted to [facility] - Attestation Statements Document Initiated by Scribe: Yes Documenting Scribe: Shawn Fang Provider For Whom Scribe is Documenting (Include Credential): Oseas Ruiz MD Scribe Attestation: IShawn, scribed for Oseas Ruiz MD on 09/11/18 at 1733. Scribe Documentation Reviewed: Yes Provider Attestation: The documentation as recorded by the scribe, Shawn Fang accurately reflects the service I personally performed and the decisions made by me, Oseas Ruiz MD Status of Scribe Document: Viewed Consult Consult: At 12:[address] Copeland, hospitalist, who accepted the patient for admission.
[2018-09-11 09:59] LABS: ABS Basophils 0.1 10^3/ul (0-0.2); ABS Eosinophils 0.1 10^3/ul (0-0.6); ABS Lymphocytes 1.3 10^3/ul (1.0-4.8); ABS Monocytes 0.6 10^3/ul (0-0.8); ABS Neutrophils 3.7 10^3/ul (1.5-7.7); ABS Nucleated RBC 0 10^3/ul; Eosinophil % 1.9 %; Hematocrit 43 % (36-46); Hemoglobin 14.2 g/dL (14.0-18.0); Lymphocyte % 21.9 %; Mean Corpuscular HGB Conc 34 g/dL (31-36); Mean Corpuscular Hemoglobin 30 pg (27-31); Mean Corpuscular Volume 89 fL (80-94); Mean Platelet Volume 7.3 fL (7.4-10.4); Nucleated Red Blood Cells % 0; Platelet Count 212 10^3/uL (150-450); Red Blood Count 4.79 10^6 /uL (4.18-5.48); Red Cell Distribution Width 15 % (10.5-15); White Blood Count 5.8 10^3/uL (3.5-10.8)
[2018-09-11 10:04] LABS: INR 0.98 (0.77-1.02)
[2018-09-11 10:22] LABS: Albumin/Globulin Ratio 1.6 (1-3); BUN/Creatinine Ratio 21.3 (8-20); Calcium 8.7 mg/dL (8.6-10.3); EGFR African American 114.7 (>60); EGFR Non-African American 94.8 (>60); Globulin 2.5 g/dL (2-4); Magnesium 1.9 mg/dL (1.9-2.7); Potassium 4.2 mmol/L (3.5-5.0); Total Bilirubin 0.5 mg/dL (0.2-1.0); Total Protein 6.5 g/dL (6.4-8.9); Troponin I 0.01 ng/mL (<0.04)
[2018-09-11 11:08] LABS: TSH (Thyroid Stimulating Horm) 5.08 mcIU/mL (0.34-5.60)
[2018-09-11 11:24] LABS: Urine Appearance Cloudy; Urine Bacteria Absent (Absent); Urine Bilirubin Negative (Negative); Urine Blood Negative (Negative); Urine Color Yellow; Urine Glucose Negative (Negative); Urine Ketones Negative (Negative); Urine Nitrite Negative (Negative); Urine Protein 1+(30 mg/dL) (Negative); Urine Red Blood Cell Trace(0-2/hpf) (Absent); Urine Squamous Epithelial Cell Present (Absent); Urine Urobilinogen Negative (Negative); Urine White Blood Cell Trace(0-5/hpf) (Absent)
[2018-09-11 11:55] LABS: C Reactive Protein 2.97 mg/L (<8.01)
[2018-09-11 12:51] LABS: Erythrocyte Sed Rate 3 mm/Hr (0-19)
[2018-09-11] MEDS ORDERED: Magnesium Hydroxide LIQ* 30 ML UDC PO PRN (13:58)
[2018-09-11] MEDS ORDERED: Acetaminophen TAB* 325 MG PO PRN (13:58)
[2018-09-11] MEDS ORDERED: Al Hydrox/Mg Hydrox/Simet LIQ* 30 ML UDC PO PRN (13:58)
[2018-09-11] MEDS: NS 0.9% 1000 ML** 1,000 ML IV SCH (15:14)
[2018-09-11] MEDS ORDERED: Iohexol 350* (CONTRAST) 500 ML MDV IV ONE (15:41)
--- NOTE | 2018-09-11 16:52 | HP ---
CC: Dr. Elizabeth Berry; Dr. Miles * HISTORY AND PHYSICAL: DATE OF ADMISSION: 09/11/18 PRIMARY CARE PROVIDER: Dr. Elizabeth Berry OTHER PROVIDER: Dr. Pacheco in consultation. ATTENDING PHYSICIAN: Dr. Copeland * (dictated by Cece Young NP.) CHIEF COMPLAINT: Syncope. HISTORY OF PRESENT ILLNESS: Mr. Spann is a 73-year-old male with past medical history significant for coronary artery disease, severe aortic stenosis , status post aortic valve replacement; paroxysmal atrial fibrillation in the postop period; hyperlipidemia; hypertension, who presents to the emergency room via ambulance after he had a witnessed syncopal episode this morning while eating breakfast. The patient reports moments before syncopal episode, he was sitting, having breakfast with his friends. He felt "woozy," felt as if he needed to take a deep breath or have a drink of water, which he did and neither helped, then he syncopized. He does report that his friends said that he woke briefly and syncopized again, but he does not recall this. He recalls waking in the diner and his friends report that EMS is on their way. He denies any loss of bowel or bladder. He does report that he had an emotionally stressful day yesterday due to losing phone, etc. In addition, he reports he had a long car ride this weekend, which was [address] He also had a long car ride last weekend, which was [address] He denies any recent illness, recent alcohol use, any change in medications. He is currently symptom free. While in the emergency room, the patient had an EKG, which was unremarkable and unchanged from previous. He had a CBC, which is unremarkable. He had a chemistry, which revealed sodium of 127 and glucose of 141, which was otherwise unremarkable. He had a urine that was fairly unremarkable. Given the patient's symptoms and history of cardiac illness, the ED provider did contact the on- call gymnasium teacher, Dr. Pacheco, who recommended admission for telemetry monitoring. While in the emergency room, I evaluated the patient, who reports he is currently symptom free. He is agreeable to admission. The patient will be admitted to telemetry OBV. PAST MEDICAL HISTORY: 1. Coronary artery disease with 40% disease in the RCA, his pre-aortic valve replacement cath was on 09/22/17. 2. Status post aortic valve replacement, #23 Magna pericardial on 11/09/17 at [facility] in [place]. 3. Paroxysmal atrial fibrillation postoperatively. 4. BPH, status post TURP. 5. Hyperlipidemia. 6. Hypertension. PAST SURGICAL HISTORY: 1. Status post tonsillectomy. 2. Status post vasectomy. 3. Status post TURP and urethral dilation. 4. Status post aortic valve replacement. 5. Status post cholecystectomy. HOME MEDICATIONS: 1. Magnesium 400 mg p.o. b.i.d. 2. Atorvastatin 30 mg p.o. h.s. 3. Aspirin 81 mg p.o. daily. 4. Metoprolol succinate XL tab 25 mg p.o. daily. ALLERGIES: No known drug allergies. FAMILY HISTORY: Father had history of heart disease, hypertension, and passed at age 84. Mom passed at age 94 of unknown cause. SOCIAL HISTORY: The patient is an ex-smoker, but quit when he was in his 20s. He drinks alcohol socially 1 time per week. No history of drug use. The patient works out multiple times a week. Last workout was on Monday, which he participated in a spin class with no difficulty. Surrogated decision maker will be his , Kaci Spann, phone number [phone]. REVIEW OF SYSTEMS: Constitutional: The patient denies fevers, denies anorexia. Cardiac: The patient denies chest pain. The patient denies edema. The patient denies palpitations. Respiratory: No cough, no hemoptysis, no shortness of breath. GI: No nausea, vomiting. No diarrhea. No abdominal pain. : No gross hematuria. No dysuria. Neuro: No focal weakness or sensory loss. Eyes: No visual complaints. ENT: No sore throat, no difficulty swallowing, no difficulty finding words. Musculoskeletal: No arthritis or myalgias. Skin: No rashes or lesions. Psych: No psychosis or anxiety. PHYSICAL EXAMINATION GENERAL: Mr. Spann is a well-developed, well-nourished man, sitting in the ED stretcher, appears in no acute distress. He appears stated age. VITAL SIGNS: Temp 98.2, HR 79, RR 16, O2 saturation 95% on room air, BP 109/67. HEENT: Visual polk are intact. PERRLA. EOMs are intact. Oral mucosa is moist without lesions. Posterior pharynx is clear. NECK: Full range of motion. No lymphadenopathy. Supple. RESPIRATORY: Symmetrical chest expansion. No accessory muscle use. Lungs are clear to auscultation. No rhonchi, wheezes, or rubs. CARDIAC: Regular rate and rhythm. S1 and S2 present. Systolic murmur noted. No murmurs or gallops. No JVD. ABDOMEN: Soft and nontender to palpation. Bowel sounds heard throughout. EXTREMITIES: Skin is warm and smooth bilaterally. No edema. No clubbing or cyanosis. Pedal pulses are 2+ bilaterally. MUSCULOSKELETAL: Full range of motion. No pain or deformities. NEURO: Awake, alert, and oriented x4. Motor strength is 5/5 in upper and lower extremities. SKIN: Grossly intact without lesions. DIAGNOSTIC STUDIES/LAB DATA: WBC 5.8, hemoglobin 14.2, hematocrit 43, platelets 212. Sodium is 127, potassium 4.2, chloride 98, BUN 17, creatinine 0.80, glucose 141, lactic acid 1.9, magnesium 1.9. TSH 5.00. EKG: Sinus rhythm. PVC noted. No change from previous EKG. ASSESSMENT AND PLAN: Mr. Spann is a 73-year-old male with past medical history significant for coronary artery disease, aortic stenosis, status post aortic valve replacement; paroxysmal atrial fibrillation postoperatively; benign prostatic hyperplasia; hyperlipidemia; hypertension, who presents to the emergency room today after a syncopal episode. Given the patient's history, he will be admitted for OBV. 1. Syncope: The patient reports a syncopal episode this morning, which was witnessed by his friends. Please see above. I ordered the patient's LINQ device be interrogated, which revealed bradycardia around the time of syncopal episode. I have also ordered an echocardiogram. Finally, the patient was noted to be mildly orthostatic; therefore, I will provide IV fluids. I will also trend the patient's troponin. Dr. Pacheco is aware of the patient and will see the patient. He will be placed on tele. 2. Coronary artery disease with 40% disease in the right coronary artery. His pre- aortic valve replacement cath was on 09/22/17: We will continue the patient's home medications as same. The patient is to follow up closely with Dr. Miles as an outpatient. We will defer any other testing to discretion of Dr. Pacheco. 3. Status post aortic valve replacement on 11/09/17. We will continue the patient's medications the same. I have ordered an echocardiogram as mentioned above. 4. Paroxysmal atrial fibrillation postoperatively. The patient reports this is only in the postoperative period and has not recurred. I have reviewed the patient's LINQ report from July and August, which support this. Current LINQ report also reports bradycardia during the episode as mentioned above. 5. Hyperlipidemia. We will continue the patient's statin and repeat lipids. 6. Hypertension. We are going to continue the patient's home medications with possibility of decreasing metoprolol given the link device finding of bradycardia. 7. FEN. We will provide with heart-healthy, no caffeine diet. 8. Code status: The patient is a full code. 9. DVT prophylaxis: Based on the DVT risk assessment, the patient is moderate risk. I will order heparin subcu q.12 hours. TIME SPENT: Approximately 65 minutes was spent on this admission, greater than half time was spent with the patient and caregiver, obtaining my history and performing the physical exam, and reviewing my plan of care. The case has been reviewed with my attending, Dr. Copeland, who is agreeable with my plan of care. CECE YOUNG, JULISA [id number]/CPS #: [id number] AARTI
[2018-09-11] MEDS: Heparin VIAL(*) 5000 UNITS/ML VIAL (FIVE THOUSAND) SUBCUT SCH (20:44)
[2018-09-11] MEDS: Magnesium Oxide TAB* 400 MG PO SCH (20:47)
[2018-09-11] MEDS ORDERED: Atorvastatin* 10 MG TAB PO SCH (21:00)
[2018-09-12] MEDS: NS 0.9% 1000 ML** 1,000 ML IV SCH ×2 (00:38→10:59)
[2018-09-12 06:08] LABS: ABS Basophils 0 10^3/ul (0-0.2); ABS Eosinophils 0.2 10^3/ul (0-0.6); ABS Lymphocytes 1.7 10^3/ul (1.0-4.8); ABS Monocytes 0.7 10^3/ul (0-0.8); ABS Neutrophils 2.7 10^3/ul (1.5-7.7); ABS Nucleated RBC 0 10^3/ul; Eosinophil % 3.4 %; Hematocrit 41 % (36-46); Lymphocyte % 32.1 %; Mean Corpuscular HGB Conc 34 g/dL (31-36); Mean Corpuscular Hemoglobin 30 pg (27-31); Mean Corpuscular Volume 88 fL (80-94); Mean Platelet Volume 7.8 fL (7.4-10.4); Nucleated Red Blood Cells % 0.2; Platelet Count 174 10^3/uL (150-450); Red Blood Count 4.67 10^6 /uL (4.18-5.48); Red Cell Distribution Width 15 % (10.5-15); White Blood Count 5.4 10^3/uL (3.5-10.8)
[2018-09-12 06:23] LABS: BUN/Creatinine Ratio 21.7 (8-20); Calcium 8.5 mg/dL (8.6-10.3); EGFR Non-African American 112.4 (>60); HDL Cholesterol 49.7 mg/dL; Potassium 4.2 mmol/L (3.5-5.0)
[2018-09-12 06:38] LABS: TSH (Thyroid Stimulating Horm) 4.1 mcIU/mL (0.34-5.60)
[2018-09-12] MEDS ORDERED: Aspirin EC TAB* 81 MG TAB.EC PO SCH (09:00)
[2018-09-12] MEDS ORDERED: Metoprolol Succinate XL TAB* 25 MG PO SCH ×2 (09:00)
[2018-09-12] MEDS: Heparin VIAL(*) 5000 UNITS/ML VIAL (FIVE THOUSAND) SUBCUT SCH (09:28)
[2018-09-12] MEDS: Magnesium Oxide TAB* 400 MG PO SCH (09:28)
--- NOTE | 2018-09-12 11:44 | ECHO ---
Patient: SANDRA GALO [facility] Rec#: [id number] : 1945 Date: 09/12/2018 Age: 73y Height: 188 cm / 74.0 in Weight: 84 kg / 185.1 lbs Sex: M BSA: 2.1 Room#: [facility] Admit Date#: 09/11/2018 Type: Inpatient Referring: SALMA Reading: Lizette Miles MD [employer] Operator: Cecily Lincoln RDCS,RDMS CC: Elizabeth Berry MD Transthoracic Echocardiogram Indication: Syncope BP: 135/73 HR: 68 Rhythm: NSR with PVCs Findings History: AOV replacement, AFIB, HTN, HLD, CAD Technical Comments: The study quality is fair. Left Ventricle: The left ventricular chamber size is normal. Mild concentric left ventricular hypertrophy is observed. Left ventricular systolic function is at the lower limits of normal. The estimated ejection fraction is 50-55%. Ventricular septal wall motion has a post-operative appearance. Abnormal left ventricular diastolic function is observed. Left Atrium: The left atrium is mildly dilated. Right Ventricle: The right ventricular chamber size and systolic function are within normal limits. Right Atrium: The right atrium is mild to moderately dilated. Aortic Valve: Systolic excursion of the aortic valve is normal. There is no evidence of aortic regurgitation. The mean gradient of the aortic valve is 15 mmHg. The aortic valve area, by peak velocities, is calculated at 1.1 cm2. AV accel Time is 84 ms. A bio-prosthetic aortic valve is present. #23 Magna pericardial valve. The bio-prosthetic aortic valve appears to be functioning normally. Mitral Valve: The mitral valve leaflets are mildly thickened. There is a trace of mitral regurgitation. There is no evidence of mitral stenosis. Tricuspid Valve: The tricuspid valve leaflets are normal. There is trace tricuspid regurgitation. No pulmonary hypertension is noted. Pulmonic Valve: There is no evidence of pulmonic valve thickening. There is no evidence of pulmonic regurgitation. Pericardium: There is no significant pericardial effusion. Aorta: The aortic root appears normal. There is no dilatation of the aortic arch. Pulmonary Artery: The main pulmonary artery is not well visualized. Venous: The inferior vena cava appears normal in size. There is a greater than 50% respiratory change in the inferior vena cava dimension. Conclusions Mild concentric left ventricular hypertrophy is observed. Ventricular septal wall motion has a post-operative appearance. Left ventricular systolic function is at the lower limits of normal. The estimated ejection fraction is 50-55%. Abnormal left ventricular diastolic function is observed. The right ventricular chamber size and systolic function are within normal limits. A bio-prosthetic aortic valve is present. #23 CE [place] Magna pericardial valve. The bio-prosthetic aortic valve appears to be functioning normally: mean gradient of the aortic valve is 15 mmHg. There is a trace of mitral regurgitation. The mitral valve leaflets are mildly thickened. There is trace tricuspid regurgitation. Compared with prior echo of 11/30/17, ([facility]), EF is stable, no longer see RV dilatation AVR function is stable, MR and TR are stable. Measurements Name Value Normal Range RVIDd (AP) 2D 3 cm (0.9 - 2.6) RVDdMajor (2D) 3.4 cm (2.2 - 4.4) RAd ISD 4CH 6 cm (3.4 - 4.9) RA (A4C)W 5.1 cm (2.9 - 4.6) IVSd (2D) 1.1 cm (0.6 - 1) LVPWd (2D) 1.2 cm (0.6 - 1) LVIDd (2D) 4.2 cm (3.6 - 5.4) LVIDs (2D) 2.9 cm - LV FS (2D) 30 % (25 - 45) Aortic Annulus 1.8 cm (1.4 - 2.6) Ao root diameter (2D) 2.5 cm (2.1 - 3.5) Ascending Ao 3.1 cm (2.1 - 3.4) Aortic arch 2.3 cm (1.8 - 3.4) LA dimension (AP) 2D 3.6 cm (2.3 - 3.8) LA:Ao ratio (2D) 5.7 ratio - LAd ISD 4CH 3.8 cm (2.9 - 5.3) Name Value Normal Range LA ESV BP (A/L) index 36 ml/m2 - Name Value Normal Range MV E-wave Vmax 0.8 m/sec - MV deceleration time 235 msec - MV A-wave Vmax 0.8 m/sec - MV E:A ratio 1 ratio - P. vein S-wave Vmax 0.5 m/sec - P. vein D-wave Vmax 0.3 m/sec - P. vein S:D Vmax ratio 1.99 ratio - LV septal e' Vmax 0.06 m/sec - LV lateral e' Vmax 0.09 m/sec - LV E:e' septal ratio 12.5 ratio - LV E:e' lateral ratio 8 ratio - Name Value Normal Range AV Vmax 2.6 m/sec - AV VTI 59 cm - AV peak gradient 26 mmHg - AV mean gradient 15 mmHg - LVOT diameter 2 cm - LVOT Vmax 0.9 m/sec - LVOT VTI 20 cm - LVOT peak gradient 3.2 mmHg - LVOT mean gradient 2 mmHg - DOI (VTI) 0.3 ratio - SHANE (continuity Vmax) 1.1 cm2 - SHANE (continuity VTI) 1.1 cm2 - DONAVON Vmax 0.3 m/sec - Name Value Normal Range TR Vmax 2.1 m/sec - TR peak gradient 18 mmHg - RAP 3 mmHg - RVSP 21 mmHg - IVC diameter 1.7 cm - Name Value Normal Range PV Vmax 0.7 m/sec - PV peak gradient 2 mmHg -
[2018-09-12 15:50] VITALS: BP 142/78
--- NOTE | 2018-09-12 20:09 | CONS ---
CC: Dr. Rashid, Hospitalist Service * CARDIOLOGY CONSULTATION: DATE OF CONSULT: 09/12/18 REASON FOR CONSULT: Loss of consciousness. CHIEF COMPLAINT: The patient's chief complaint is fainting. HISTORY OF PRESENT ILLNESS: Mr. Spann is a 73-year-old gentleman followed by myself with a history of aortic valve stenosis who underwent surgical aortic valve replacement in 2018. His postoperative course was complicated by atrial fibrillation and he had 2 syncopal episodes as well and underwent a LINQ. The patient is overall doing well after the immediate postoperative period until yesterday. He was eating breakfast at the diner with friends, felt odd, tried to drink some fluids, and then lost consciousness. He said his friends told him his head bowed over and told him he was out about 2 minutes. EMT notes document that their initial blood pressure at 8:55 in the morning was 113/ 73. His pulse was 54. The patient has had a hectic day the day before, but he had been eating and drinking normally, no excessive alcohol intake. He does not think that he was dehydrated. He had no palpitations or racing of the heart. No change in medications. PAST MEDICAL HISTORY: The patient has a past medical history of; 1. Aortic stenosis status post surgical aortic valve replacement in October 2017 ( #23 [place] Magna pericardial valve). 2. Paroxysmal AFib in 2018, post TAVR. 3. Hypertension. 4. Syncopal episodes. 5. Dyslipidemia. 6. Coronary artery disease ([id number] right coronary artery disease on cath in August 2017). 7. Solitary lung nodule being followed by CT. PAST SURGICAL HISTORY: 1. Tonsillectomy. 2. Vasectomy. 3. TURP. 4. Urethral dilation. 5. Laparoscopic cholecystectomy in March 2018. OUTPATIENT MEDICATIONS: Included: 1. Metoprolol 25 mg a day. 2. Atorvastatin 30 mg a day. 3. Magnesium oxide 800 mg a day. 4. Tylenol p.r.n. 5. Aspirin 81 mg a day. ALLERGIES: No known drug allergies. He is allergic to RAGWEED, DUST MITES, MOLD, and POLLEN. FAMILY HISTORY: Significant in that his father had a history of heart disease, lived to 84 years old. His mother at age 94 with arthritis. He has a sibling that at 3 months of age of encephalitis and his other sibling is healthy in his 80s. SOCIAL HISTORY: The patient is . He is a retired [employer], a distant smoker, stopped in his 20s, rare alcohol intake, enjoys coffee, but currently drinking decaf, exercises regularly at the gym, no recent decline in exercise ability. REVIEW OF SYSTEMS: Negative for recent fevers, chills, sweats no recent diarrhea, constipation, trouble urinating. No recent coughing, but he did say that this week he has had a lot of allergies. All other 14-point review of systems was negative. PHYSICAL EXAM: The patient is 6 feet 2 inches, weighs 186 pounds with BMI of 24. Vital signs currently blood pressure 134/73, pulse is 60, respiratory rate is 16, oxygen saturation 99% on room air, and he is afebrile. General Appearance: Older gentleman, appears fit and healthy in no acute distress. Psychologically, pleasant and cooperative upbeat. Neurologically, awake, alert , oriented to person, place and time. Cranial nerves II through XII intact. Grossly normal sensory and motor function in the upper and lower extremities. Normal movements in the bed. Skin: Warm and dry. Midline sternotomy scar well healed. No cyanosis or rashes. HEENT: Mucous membranes moist. Neck without appreciable increased JVP, no thyromegaly. Breath sounds are clear with good effort. No wheezes, rales, or rhonchi. Coronary: S1, S2, regular. Barely audible systolic murmur heard along the left lower sternal border. Abdomen: Active bowel sounds, soft, nontender. Lower extremities are free of edema and warmth. DIAGNOSTIC STUDIES/LAB DATA: EKG today showed normal sinus rhythm 60 beats per minute, QRS axis -15 with normal AV and IV conduction times, normal ST segments. Event monitor download (LINQ implantable event monitor) showed normal sinus rhythm in the 70s to 80s with a precipitous drop to sinus bradycardia in the 30s. There is also some strip that suggest junctional bradycardia where no P waves were seen. These strips are from 09/11/16 at 7:29, 7:30 and 7:31 in the morning (the time of the event) occasional PVCs noted as well. White count 5.4 , hemoglobin 14, hematocrit 41, platelets 174. INR is 0.98. D - dimer elevated at greater than 1050. Sodium on admission 127 and glucose on admission 141. Lytes today showed sodium 133, potassium 4.2, chloride 105, bicarb 25, BUN 15, creatinine 0.69, lactic acid 1.9. Calcium on admission 8.7, slightly low today at 8.5. ALT 23. Troponin #1 is 0.01, troponin #2 is 0.01, and troponin #3 is 0.00. C-reactive protein 2.97. BNP is 76. Lipids, total cholesterol 126, triglycerides 58, HDL cholesterol 50 and LDL cholesterol 55. Urinalysis: 1+ protein, negative for nitrites, negative for ketones. Echocardiogram done today shows an ejection fraction of 50% to 55% with mild left ventricular hypertrophy and abnormal diastolic filling. His bioprosthetic valve showed normal function, mean gradient 15 mmHg, mitral valve sclerosis with trace mitral insufficiency. IMPRESSION AND PLAN: In summary, Lucas Spann is a 73-year-old gentleman, almost a year out from a surgical aortic valve replacement. His postoperative period was complicated by paroxysmal AFib with no subsequent recurrence, but also syncopal episodes. He had a syncopal episode in the setting of eating breakfast and associated sinus bradycardia, but no evidence of sinus pauses or heart block. I suspect this was a vagal event. Other possibilities as the sugar was high would be hypo or hyperglycemia, although this elevated glucose could have been a stress reaction. There is a relative indication for a pacemaker, but no absolute. If a pacemaker were implanted he would still be at risk for vagal symptoms, but my hope would be that we could prevent actual syncope and he is aware of this. For now, I recommend stopping his metoprolol if they do not appreciate that it is preventing any syncopal events that might be contributing to intermittent bradycardia. Education about triggers for vagal events including dehydration, overeating, anxiety, prostate, GI triggers and coughing. Elective pacemaker implantation is an option understanding that it would temporize the symptoms and probably prevent syncope, but not completely prevent dizziness and weakness. He would still be at risk for the vasodepressor effects of vagally mediated syncope. The event monitor is reassuring and that it has ruled out any additional episodes of AFib and has ruled out evidence of heart block that can be associated with aortic valve replacement. He may have an element of sick sinus syndrome. After additional discussions with the patient and his , the decision was made for pacemaker implantation. Thank you for allowing me to assist in this nice gentleman's care. [id number]/[facility] #: [id number] AARTI
--- NOTE | 2018-09-13 06:23 | DS ---
CC: Elizabeth Berry MD; Lizette Miles MD; Dr. Sivakumar Rashid.* DISCHARGE SUMMARY: DATE OF ADMISSION: 09/11/18 DATE OF DISCHARGE: 09/12/18 PRIMARY CARE PROVIDER: Elizabeth Berry MD GARBAGE COLLECTOR: Lizette Miles MD ATTENDING PHYSICIAN: Dr. Sivakumar Rashid* (dictated by ОЛЬГА Cruz). PRIMARY DIAGNOSIS: Syncope. SECONDARY DIAGNOSES: 1. Coronary artery disease, 40% disease in right coronary artery. 2. Preaortic valve replacement cast was on 09/22/17. 3. Status post aortic valve replacement #23 Magna pericardial on 11/09/17, [place], [place]. 4. Hypertension. 5. Hyperlipidemia. 6. Paroxysmal atrial fibrillation postoperatively. 7. Benign prostatic hypertrophy, status post transurethral resection of the prostate. STUDIES WHILE IN THE HOSPITAL: 1. EKG, 09/11/18 sinus rhythm, multiple PVCs. 2. Transthoracic echocardiogram 09/11/18, conclusion: Mild concentric left ventricular hypertrophy is observed. Ventricular septal wall motion has a postoperative appearance. Left ventricular systolic function is at the lower limits of normal. The estimated ejection fraction is 50% to 55%. Abnormal left ventricular diastolic function is observed. The right ventricular chamber size and systolic function are within normal limits. A bioprosthetic aortic valve is present, #23 CE [place] Magna pericardial valve. The bioprosthetic aortic valve appears to be functioning normally. Mean gradient of the aortic valve is 15 mmHg. There is a trace of mitral regurgitation. The mitral valve leaflets are mildly thickened. There is a trace tricuspid regurgitation compared with prior echo of 11/30/17 [place]. EF is stable. No longer CRE dilatation. AVR function is stable. MR and TR are stable. 3. CTA chest 09/11/18, impression: Negative for pulmonary embolism. No acute pathologic process of the thorax evident. DISCHARGE MEDICATIONS: Home medications: 1. Magnesium oxide 400 mg p.o. b.i.d. 2. Atorvastatin 30 mg p.o. daily. 3. Aspirin 81 mg p.o. daily. Discontinued medication: Metoprolol. HISTORY OF PRESENT ILLNESS/HOSPITAL COURSE: Mr. Spann is a 73-year-old male with a past medical history as described above, who presents to the ER on after a witnessed syncopal event. He states he was eating breakfast with his friends and he passed out 1.5 to 2 minutes, regained consciousness and then passed out again for another 30 seconds. He states he does not recall having awoken between the two, but witnesses reported to him that he did. EMS was called and he was brought into the ER. There was no loss of bowel or bladder function. He does state prior to the event that he felt "funny". He was unable to describe this specifically, but states he felt "spacey." He does recall previous episodes of this, one in February and one in March. Most of them he believes to have occurred prior to after eating a meal. The patient was admitted to the hospital and placed on telemetry. Cariology consult was ordered. An echo, as well as a CTA of the chest was ordered. The patient was not found to have any evidence of pulmonary embolism. Transthoracic echo did not show any gross abnormalities. Overnight telemetry showed normal sinus rhythm with occasional PVCs and sinus bradycardia. His event monitor was downloaded and showed normal sinus rhythm with drops to sinus bradycardia in the 30s. There are also strips that suggest junctional bradycardia where no P waves are seen. Cardiology recommends a relative indication for pacemaker. The patient was agreeable to this and opted for discharge with placement of pacemaker on Monday. Interrogation of event monitor has showed no episodes of AFib or heart block. At the time of discharge, the patient Denies chest pain, shortness of breath, cough, fever, lightheadedness, dizziness, abdominal pain, nausea, vomiting, diarrhea, constipation or swelling in the lower extremities. Mr. Spann is stable for discharge. PHYSICAL EXAMINATION: Vital Signs: Temperature 97.3 oral, heart rate 68, respiratory rate 16, oxygen saturation 98% on room air, blood pressure 142/78. General: Mr. Spann is a well-developed, well-nourished, thin older white male , who is sitting up in bed. He appears to be in no acute distress. HEENT: Visual polk are grossly intact. The pupils are equally round and reactive to light. Extraocular movements are intact. Sclerae are without icterus. Hearing is grossly intact. Oral mucous membranes are moist. There are no lesions. Pharynx is clear. Cardiovascular: Regular rate and rhythm with S1, S2 present. Systolic murmur noted. No rubs or gallops. No JVD. Respiratory: Symmetrical chest expansion with no use of accessory muscles. Lungs: Clear to auscultation. No rhonchi, wheezes, or rubs. Abdomen: Flat. Bowel sounds are normoactive. The abdomen is soft and nontender to palpation. There is no hepatosplenomegaly. Extremities: Skin is warm and smooth bilaterally. There is no clubbing, cyanosis, or edema. Radial and pedal pulses are palpable. Neuro: The patient is awake. He is alert and oriented x3. He is able to move all of his extremities. DISCHARGE PLAN: Mr. Spann will be discharged to home. ACTIVITY: No driving until pacemaker placement. Otherwise, activity as tolerated. DIET: Heart healthy. MEDICATIONS: As above. Discontinue metoprolol. EDUCATION: 1. Follow up with Dr. Miles on Monday. Call office tomorrow to schedule pacemaker placement appointment as discussed with Dr. Miles. 2. Follow up with primary care provider in 4 to 7 days. 3. The patient was educated on prodrome that occurs prior to syncopal event and how to manage that when it does occur. 4. Return to the ER or nearest hospital if you experience any worsening of symptoms, shortness of breath, lightheadedness, dizziness, chest discomfort, high fevers, chills, night sweats, loss of consciousness, or any other worrisome signs or symptoms. This is a summarized report of a complex medical history and hospital stay. For further details, please see the entire medical record. TIME SPENT: Approximately 30 minutes was spent on this discharge; greater than half of that time was spent [id number] with the patient discussing discharge plans and instructions. ОЛЬГА LFORES [id number]/[facility] #: [id number] AARTI
== END 2018-09-12 17:10 | disposition home or self-care (01) ==
LOC: ED 09:13 → MEDTELE 13:58
PROVIDERS: ADMIT Internal Medicine; ATTEND Internal Medicine
DX: R55 Syncope and collapse (principal); I25.10 Atherosclerotic heart disease of native coronary artery without angina pectoris; Z95.4 Presence of other heart-valve replacement; I10 Essential (primary) hypertension; E78.5 Hyperlipidemia, unspecified; I48.0 Paroxysmal atrial fibrillation; Z79.82 Long term (current) use of aspirin; Z98.890 Other specified postprocedural states; N40.0 Benign prostatic hyperplasia without lower urinary tract symptoms; Z90.79 Acquired absence of other genital organ(s); Z87.891 Personal history of nicotine dependence
CPT/HCPCS: 36415; 71275; 80048; 80053; 80061; 81003; 81015; 83605; 83735; 83880; 84443; 84484; 85025; 85379; 85610; 85652; 86140; 87086; 93005; 93306; 96360; 96361; 96372; 99284; A9270-GY; G0378; J1644; Q9967

== ENCOUNTER 2018-09-14 11:04 | Observation (INO) | payer MEDICARE, BC ==
[2018-09-14] MEDS ORDERED: ceFAZolin* 2 GM* ONE DOSE (Duplex) IVPB (12:00)
[2018-09-14] MEDS ORDERED: Diazepam TAB(*) 5 MG ONE (12:20)
[2018-09-14] MEDS ORDERED: Midazolam* 1 MG/ML 5 ML VIAL (5 MG) ONE (12:40)
[2018-09-14] MEDS ORDERED: fentaNYL* 50 MCG/ML 2 ML VIAL (100 MCG VIAL) ONE (12:40)
[2018-09-14] MEDS ORDERED: Lidocaine 1% INJ* 10 MG/ML 30 ML SDV ONE (12:40)
[2018-09-14] MEDS ORDERED: Iohexol 300* (CONTRAST) 10 ML SDV ONE (12:40)
[2018-09-14] MEDS: ceFAZolin 500 MG VIAL(*) 500 MG in NS 0.9% 50 ML* 50 ML IVPB SCH ×2 (16:28→23:09)
[2018-09-14] MEDS: Magnesium Oxide TAB* 400 MG PO SCH (21:36)
[2018-09-15] MEDS: ceFAZolin 500 MG VIAL(*) 500 MG in NS 0.9% 50 ML* 50 ML IVPB SCH (07:17)
--- NOTE | 2018-09-15 07:58 | PN ---
Hospitalist Progress Note Date of Service: 09/15/18 HOSPITALIST ADDENDUM CAT called for patient who had a syncopal episode in Radiology. Mr Spann is a 73yo M with PMH of CAD, AVR (biological), PAF, BPH, admitted for pacemaker placement, done 09/14/18. Patient was on bed rest and stood up for the first time while having a CxR this AM. He states he felt weak and oozy; he sat on a chair and there was brief LOC. Moved to stretcher, legs elevated, and regained consciousness. VS: 97.8 62 150/88 96% RA CVS: normal S1 and S2, RRR Chest: BS+ bilaterally with no added sounds Patient was pale and a little diaphoretic on CAT arrival, but has regained his color and feels back to baseline. A/P: Syncopal episode - Monitor on Telemetry. - Interrogate device. - Dr Alva notified.
[2018-09-15 08:55] VITALS: BP 144/82
[2018-09-15] MEDS ORDERED: Atorvastatin* 20 MG TAB PO SCH (09:00)
[2018-09-15] MEDS ORDERED: Aspirin EC TAB* 81 MG TAB.EC PO SCH (09:00)
[2018-09-15] MEDS: Magnesium Oxide TAB* 400 MG PO SCH (10:13)
--- NOTE | 2018-09-15 11:06 | OP ---
DATE OF OPERATION: 09/14/18 - ROOM #432 DATE OF : 45 SURGEON: Dr. Lizette Miles. ANESTHESIA: MAC. PRE-OP DIAGNOSIS: POST-OP DIAGNOSIS: OPERATIVE PROCEDURE: Dual-chamber pacemaker implantation. ESTIMATED BLOOD LOSS: Less than 5 cc. COMPLICATIONS: None. DESCRIPTION OF PROCEDURE: The indications, risks, and benefits have been discussed with the patient and two days prior to the surgery. Additional questions were answered. On the day of surgery, the patient was amenable to proceeding. The patient is right-handed and the left subclavian fossa was prepped and draped in the usual sterile fashion. A time-out was called. The patient received a total of 5 mg of Versed and 50 mcg of fentanyl throughout the procedure and the patient received approximately 20 cc of 1% lidocaine for local anesthesia throughout the procedure. The patient received 10 cc of radiopaque dye in the left upper extremity and using fluoroscopy, the left axillary and left subclavian veins were outlined. Following the local anesthesia, using a 10-blade knife, a 2-cm incision was made in the left subclavian fossa and using Bovie and blunt dissection, was extended to the level of the pectoralis muscle. Additional lidocaine was infused inferiorly and medially and using blunt dissection, a small pocket was fashioned. Using a modified Seldinger technique, the left subclavian vein was cannulated and using fluoroscopic guidance, a guidewire was inserted into the right atrium. The procedure was repeated with the second guidewire. Using an introducer technique, the right ventricular lead was guided into the right ventricular apex and actively fixed in place. Pacing and sensing thresholds were checked and found to be good. Using the second guidewire and an introducer technique, the right atrial lead was guided into the right atrial apex and actively fixed in place. Pacing and sensing thresholds were good. The leads were then sutured to the pocket. The pocket was copiously irrigated. The leads were attached to the device. The device was placed in the pocket. The incision was closed using 2 layers of resorbable suture, 2-0 followed by 4- 0 followed by Steri-Strips and an external dressing. FINDINGS: The system is an Biomatricatronic MRI compatible system. The pacemaker is a Viamericas [id number], serial number [id number]. The atrial lead is a Medtronic model 5076-52, serial number [id number] and the ventricular lead is a Medtronic model 5076-58, serial number [id number]. P-waves were sensed at 1.4 mV with atrial lead impedance of 849 ohms and atrial pacing threshold 0.7 V and 0.5 msec. R-waves were sensed at 8.9 mV with ventricular lead impedance of 728 ohms and ventricular pacing threshold was 0.2 V and 0.5 msec. The patient was hemodynamically stable throughout the procedure and then transferred to the floor. There were no complications. The patient's final programming leaving was dual-chamber pacing, DDD at a lower rate of 60 beats a minute and upper tracking rate of 130 beats a minute. [id number]/[facility] #: [id number] AARTI
--- NOTE | 2018-09-15 11:55 | DS ---
Discharge summary: Date of admission 09/14/2018 Date of discharge 09/15/2018 [employer]er and implanting physician: Dr. Miles Discharge diagnosis: Elective pacemaker implant Hospital course: Patient was electively admitted for syncope that that was felt to be related to cardioinhibitory neurocardiogenic mechanism. He had a dual chamber pacemaker medtronic yesterday. His would today looks normal with felix in place, no evidence of drainage, bleeding infection or hematoma. A chest x-ray showed no pneumothorax. He had a similar episode this AM of what he describes as "wooziness"/ lightheaded while going to chest x-ray. He did not actually full lose consciousness per his account. BP after this was 150/88 mmHg but I am uncertain how symptomatic he was when this was taken. His device interrogation did not show any profound rate drop episodes. He was changed to an atrial preference pacing mode. See separate document for interrogation details. A short oral course of keflex will be added to his medication regimen Please see discharge instructions for medication details, diet, activity and wound care instructions. In specific, he was advised to lay down if he has future prodromes to try to abort full LOC episodes. Discharge home Discharge condition: Stable Patient will follow up with July as scheduled.
--- NOTE | 2018-09-15 12:07 | PROCNOTE ---
Cardiology Procedure Note Device interogation and reprogramming 09/15/2018: Normal function No VT, No AF Impedence RA 532, RV 627 Sensing RA 1.3, RV 14.5 Threshold RV 0.5 @ 0.4 AP 15.9%, RV 0.3% Now AAI-DDD Kortney on Rate drop response changed to atrial preference pacing following pre-syncope episode (see discharge summary for details)
== END 2018-09-15 15:32 | disposition home or self-care (01) | DRG 244 ==
LOC: CHICATH 11:04 → INTOOBSV 13:52 → MEDTELE 13:52
PROVIDERS: ADMIT Specialist; ATTEND Internal Medicine
DX: I49.5 Sick sinus syndrome (principal); I25.10 Atherosclerotic heart disease of native coronary artery without angina pectoris; R55 Syncope and collapse; I48.0 Paroxysmal atrial fibrillation; N40.0 Benign prostatic hyperplasia without lower urinary tract symptoms; I10 Essential (primary) hypertension; E78.2 Mixed hyperlipidemia; I08.1 Rheumatic disorders of both mitral and tricuspid valves; Z82.49 Family history of ischemic heart disease and other diseases of the circulatory system; Z80.9 Family history of malignant neoplasm, unspecified; Z82.61 Family history of arthritis; Z95.2 Presence of prosthetic heart valve; Z98.52 Vasectomy status; Z90.49 Acquired absence of other specified parts of digestive tract; Z87.891 Personal history of nicotine dependence; Z95.818 Presence of other cardiac implants and grafts
CPT/HCPCS: 33208; 36415; 71045; 71046; 71275; 80048; 80053; 80061; 81003; 81015; 83605; 83735; 83880; 84443; 84484; 85025; 85379; 85610; 85652; 86140; 87086; 93005; 93306; 96360; 96361; 96372; 99156; 99157; 99284; A9270-GY; C1785; C1892; C1898; G0378; J0690; J1644; J2250; J3010; Q9967

== ENCOUNTER 2019-05-13 11:17 | Day surgery (SDC) | payer MEDICARE, BC ==
[~2019-05-13 11:17] MED LIST changes: -Aspirin EC TAB* 81 MG TAB.EC PO SCH; -Atorvastatin* 10 MG TAB PO SCH; +Buffered Lidocaine 1% SYRIN* 1 ML/SYRINGE INTRADERM ONE; -Fluticasone NASAL SPRAY 50MCG* 16 gm SPRAY BTL BOTH NARES SCH; -Heparin 2 UNITS/ML IVPREMIX* 0 ML IV ONE; -Heparin 2 UNITS/ML IVPREMIX* 1,000 ML IV ONE; -Heparin(*) 1000 UNIT/ML 10 ML VIAL CATH LAB IV ONE; -Ibuprofen TAB* 200 MG PO PRN; -Iohexol 350 (CONTRAST) 200 ML MDV IV ONE; -LOSARTAN POTASSIUM 25 MG PO SCH; +Lactated Ringers 1000 ML Bag* 1,000 ML IV SCH; -Lidocaine 1% INJ* 10 MG/ML 30 ML SDV ONE; -Midazolam* 1 MG/ML 10 ML VIAL (10 MG) ONE; -NS 0.9% 1000 ML* 1,000 ML IV SCH; -VERAPAMIL 2.5 MG/ML 2 ML VIAL ** 5 mg/2 ml ONE; -WHEAT GERM OIL PO SCH; -fentaNYL* 50 MCG/ML 2 ML VIAL (100 MCG VIAL) ONE; -nitroGLYCERIN DRIP* 25,000 MCG/250 ML BTL ONE
[2019-05-13] MEDS ORDERED: ceFAZolin 2 GM in NS PREMIX(*) 2 GM/100 ML BAG IVPB ONE (12:03)
[2019-05-13] MEDS ORDERED: Buffered Lidocaine 1% SYRIN* 1 ML/SYRINGE INTRADERM ONE ×2 (12:03→12:22)
[2019-05-13] MEDS ORDERED: Bupivacaine 0.5%* 50 ML MDV VIAL ONE (12:49)
[2019-05-13] MEDS ORDERED: Propofol* 10 MG/ML 20 ML BTL ONE (13:06)
[2019-05-13] MEDS ORDERED: Midazolam* 1 MG/ML 2 ML VIAL (2 MG) ONE (13:07)
[2019-05-13] MEDS ORDERED: fentaNYL* 50 MCG/ML 2 ML VIAL (100 MCG VIAL) ONE (13:07)
[2019-05-13] MEDS ORDERED: Rocuronium* 10 MG/ML VIAL ONE (13:09)
[2019-05-13] MEDS ORDERED: Dexamethasone IV* 4 MG/ML 1 ML (4 MG) ONE (13:18)
[2019-05-13] MEDS ORDERED: Ondansetron INJ* 2 MG/ML VIAL ONE (14:05)
[2019-05-13] MEDS ORDERED: Sugammadex * 200 MG/2 ML VIAL IV PUSH ONE (14:06)
[2019-05-13] MEDS ORDERED: oxyCODONE/Acetamin 5/325 MG* TAB PO PRN (14:14)
[2019-05-13] MEDS ORDERED: Acetaminophen IV 1GM/100ML * 1,000 MG/100 ML VIAL IVPB ONE (14:26)
[2019-05-13] MEDS ORDERED: Naloxone* 0.4 MG/ML 1 ML VIAL IV PRN (14:26)
[2019-05-13] MEDS ORDERED: Ondansetron INJ* 2 MG/ML VIAL IV PRN (14:26)
[2019-05-13] MEDS ORDERED: fentaNYL* 50 MCG/ML 2 ML VIAL (100 MCG VIAL) IV PRN (14:26)
[2019-05-13] MEDS ORDERED: Acetaminophen IV 1GM/100ML * 100 ML ONE (14:58)
[2019-05-13] MEDS ORDERED: oxyCODONE/Acetamin 5/325 MG* TAB ONE (16:02)
[2019-05-13 17:03] VITALS: BP 150/86
--- NOTE | 2019-05-13 21:39 | OP ---
DATE OF OPERATION: 05/13/19 - [facility] DATE OF : 45 SURGEON: Franklin Wills MD MATERIAL HANDLING SUPERVISOR: NICKOLAS Mckeon PRE-OP DIAGNOSIS: Right inguinal hernia. POST-OP DIAGNOSIS: Right inguinal hernia. OPERATIVE PROCEDURE: Right inguinal hernia repair, robotic with mesh. INDICATION FOR PROCEDURE: Right inguinal hernia. Risks included, but not limited to, bleeding, infection, injury to intraabdominal contents including the bowel, pelvic nerves and vessels, recurrence of the hernia, explained to the patient, who seemed to understand, agreed to the procedure, and all questions were answered. DESCRIPTION OF PROCEDURE: The patient was taken to the operating room and placed supine. Preoperative antibiotics were given. After the successful induction of general endotracheal anesthesia, the abdomen was prepped and draped in sterile fashion and a time-out was performed indicating correct patient, correct procedure. Trocars were placed in the upper abdomen under direct visualization of the camera using bladeless Optiview trocars. Pneumo- peritoneum was achieved at 15 mmHg, and then reduced to 12 and then 9 mmHg for the case. The patient was in a slight Trendelenburg position. The robot was brought in and docked after a mesh and suture were passed into the abdomen. The peritoneum was taken down, a large hernia sac was generally dissected free from the cord. The mesh was placed over the right hemipelvis covering the femoral direct and indirect spaces. A sac was everted and the peritoneum was closed using running 3-0 Vicryl stitch. The needle was removed. The abdomen was scanned, no obvious injuries were noted. He tolerated the procedure well. [id number]/[facility] #: [id number] [facility]ALTH[facility]
== END 2019-05-13 16:18 | disposition home or self-care (01) ==
LOC: OR 11:17
PROVIDERS: ATTEND Surgery
DX: K40.90 Unilateral inguinal hernia, without obstruction or gangrene, not specified as recurrent (principal); I25.10 Atherosclerotic heart disease of native coronary artery without angina pectoris; I10 Essential (primary) hypertension; Z95.0 Presence of cardiac pacemaker; I48.0 Paroxysmal atrial fibrillation; Z95.2 Presence of prosthetic heart valve; N40.0 Benign prostatic hyperplasia without lower urinary tract symptoms; Z79.82 Long term (current) use of aspirin
CPT/HCPCS: 49650; S2900; A9270-GY; C1781; J0690; J1100; J2250; J2405; J2704; J3010; J3490

== ENCOUNTER 2019-08-17 13:14 | Emergency (ER) | payer MEDICARE, BC ==
--- OUTSIDE RECORDS SUMMARY | 2019-08-17 15:25 | XMS REPORT | Continuity of Care Document ---
:1945 External Reference #:[id number] Author Name Remote Device Checks (transmitted by agent of provider Winsome Soto) Address [address] [facility] [address] [place] [address] Care Team Providers Name Role Phone Lizette Miles MD - Cardiovascular Care Team Information L[place] Blower [phone] Disease Gentry Rangel M.D. - Neurological Care Team Information [place] [facility] Surgery Elizabeth Berry MD - Internal Medicine Care Team Information [place]lower Problems Active Problems Provider Date Paroxysmal atrial fibrillation Lizette Miles M.D. Onset: 11/17/2017 Note: post-op Aortic valve stenosis Carolyn Cantu M.D. Onset: 01/03/2017 Note: repaired, minimally invasive Essential hypertension Carolyn Cantu M.D. Onset: 01/03/2017 Mixed hyperlipidemia Sivakumar Rashid M.D.,FACP Onset: 07/10/2017 Benign prostatic hypertrophy without Sivakumar Rashid M.D.,FACP Onset: 04/2018 outflow obstruction Note: h/o TURP Coronary atherosclerosis Sivakumar Rashid M.D.,FACP Onset: 11/07/2017 Note: 40% RCA Heart valve replacement Lizette Miles M.D. Onset: 11/17/2017 Note: AVR Solitary nodule of lung Sivakumar Rashid M.D.,FACP Onset: 11/23/2017 Note: repeat CT 1 yr Traumatic subdural hemorrhage with Gentry Rangel M.D. Onset: 04/18/2018 loss of consciousness of 30 minutes or less, subsequent encounter Cholecystectomy Sivakumar Rashid M.D.,FACP Onset: 04/22/2018 Note: laparoscopy [facility] Cardiac pacemaker in situ Lizette Miles M.D. 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 Onset: 2017 skull fracture Social History Type Date Description Comments Sex Unknown ETOH Use Denies alcohol use stopped alcohol totally 10/2017 ETOH Use Denies alcohol use now he has an alcohol beverage occasionally 01/29/19 Tobacco Use Start: Unknown Patient is a former quit when in his 20's End: Unknown smoker Recreational Drug Use Denies Drug Use Smoking Status Reviewed: 06/06/19 Patient is a former quit when in his 20's smoker Exercise Type/Frequency Exercises regularly treadmill, jogging, recumbant bike 5-6 days of the week at [facility]. Restarted cardiac rehab 05/10/18 Allergies, Adverse Reactions, Alerts Active Allergies Reaction Severity Comments Date NKDA 01/05/2017 Ragweed 04/27/2018 Dust Mites 04/27/2018 Mold 04/27/2018 Pollen 04/27/2018 Medications Active Medications SIG Qnty Indications Ordering Date Provider Guaifenesin-Codeine take 10 118ml J06.9 Zsofia Alfredo, 06/06/2019 milliliters by [employer] 100-10mg/5ML Solution mouth every evening with plenty of water as needed for cough for 5 days as needed Fluticasone use 2 sprays in 16units J06.9 Zsofia Alfredo, 06/06/2019 Propionate each nostril one [employer] 50mcg/Act time a day Suspension Shingrix inject per 2units Z23 Elizabeth Berry MD 11/13/2018 50mcg/0.5ML protocol Suspension Rec Magnesium Oxide Take 1 Tablet By 180tabs I48.0 Tequila German, 03/27/2018 400mg Mouth Twice A Day N.P. Tablets Acetaminophen ER 1 tab by mouth q4 45tabs Sivakumar Grimes 12/11/2017 650mg hours as needed Geno Rashid,FACP Tablets ER pain Metoprolol Succinate once daily 90tabs Lizette Miles, 11/23/2017 ER MJamilDJamil 25mg Tablets ER 24HR Atorvastatin Calcium 1.5 tablets (30 135tabs Lizette Miles, 11/15/2017 mg) by mouth every M.D. 20mg Tablets day Aspirin Low Dose 1 by mouth every Unknown 81mg day ( Am ) Tablets Immunizations CPT Code Status Date Vaccine Reaction Lot # [id number] Given 06/06/2019 Pneumococcal Conjugate No immediate [id number] Vaccine 13 Valent For reaction..jh Intramuscular Use 51690 Given 03/10/2018 Influenza Virus Vaccine, Quadrivalent, Split, Preservative Free 79971 Given 03/06/2018 Influenza Virus Vaccine, Quadrivalent, Split, Preservative Free 98539 Given 07/10/2017 Pneumococcal Conjugate [id number] Vaccine 13 Valent For Intramuscular Use 75530 Given 04/04/2017 Influenza Virus Vaccine, Quadrivalent, Split, Preservative Free 01076 Given 11/28/2012 Tdap - Tetanus/Diptheria/Acellular Pertussis 27070 Given 06/02/2010 Pneumonia Vaccine Vital Signs Date Vital Result Comment 06/06/2019 11:45am Height 73.25 inches 6'1.25" Weight 183.12 lb Heart Rate 78 /min BP Systolic 140 mmHg BP Diastolic 85 mmHg Body Temperature 97.3 F O2 % BldC Oximetry 96 % BMI (Body Mass Index) 24.0 kg/m2 05/20/2019 1:04pm Heart Rate 84 /min BP Systolic Sitting 126 mmHg BP Diastolic Sitting 82 mmHg Respiratory Rate 16 /min Body Temperature 97.6 F Results Test Acquired Date Facility Test Result H/L Range Note Laboratory test 02/28/2019 [facility] Surgical SEE RESULT [address] Pathology BELOW [place] [id number] [phone] 1 SEE RESULT BELOW Name: LUCAS SPANN MADELYN : [address]: Lizette Miles MD Acct: [id number] Unit: [id number] AGE: 73 Location: [facility] Re02/28/19 SEX: M Status: REG REF SPEC: [id number] BRUCE: 02/28/19- SUBM DR: Lizette Miles MD REQ: [id number] RECD: 02/28/19 STATUS: BHARATI AREVALO DR: Elizabeth Berry MD _ ORDERED: LEVEL 1 FINAL DIAGNOSIS Event monitor, removal: Foreign body (LINQ event monitor) (gross diagnosis) PRE-OPERATIVE DIAGNOSIS Sick sinus syndrome, arterial fibrillation, pacemaker, presence of cardiac implants POST-OPERATIVE DIAGNOSIS Sick sinus, pacemaker, arterial fibriliation GROSS DESCRIPTION The specimen is received fresh labeled, LINQ Event Monitor, and consists of a 4.5 x 0.7 x 0.4 cm hameed metallic and translucent plastic family practice medical doctor with an inscription which reads [employer] SN [id number] facing the opposite direction reads [id number]. On the opposite side is reads [employer] with a QR barcode. Per established hospital medical staff protocol, no tissue is submitted. Gross only. Signed by and Reported on: Awa Nix MD 03/01/19 0959 END OF REPORT DEPARTMENT OF PATHOLOGY, [address] [place] [address] Tez Leo M.D. Director [facility] # [id number] Procedures Date Code Description Status 08/05/2019 23803 Icd Eval Sing,Dual,Multi Lead Remote Recpt Transm Tech Completed Rev Tech S 08/05/2019 00630 Pacemaker Check Remote Up To 90Days Completed Single,Dual,Multiple Lead 05/13/2019 70063 Laparoscopy, Surgical Repair Initial Inguinal Hernia Completed 05/01/2019 60980 Icd Eval Sing,Dual,Multi Lead Remote Recpt Transm Tech Completed Rev Tech S 05/01/2019 70327 Icd Eval Sing,Dual,Multi Lead Remote Recpt Transm Tech Completed Rev Tech S 05/01/2019 84060 Pacemaker Check Remote Up To 90Days Completed Single,Dual,Multiple Lead 05/01/2019 52611 Pacemaker Check Remote Up To 90Days Completed Single,Dual,Multiple Lead 04/08/2019 09433 Pace Maker Eval W/Iterative Adjment Dual Lead Completed 04/08/2019 34624 Pace Maker Eval W/Iterative Adjment Dual Lead Completed 02/28/2019 41646 Removal, Subcutaneous Caridac Rhythm Monitor Completed 11/05/2014 25263461 Colonoscopy Completed Medical Devices Description No Information Available Encounters Type Date Location Provider Dx Diagnosis Office Visit 06/06/2019 [facility] Dereje Fuentes, J06.9 Acute upper 11:30a Medicine - Ccmob [employer] respiratory infection, unspecified R05 Cough Z23 Encounter for immunization Office Visit 04/10/2019 11:45a Surgical Franklin Rey K40.90 [facility] MD hernia, w/o obst or gangr, not spcf as recur Office Visit 04/09/2019 10:20a [facility] Internal Elizabeth Berry K40.30 [facility] inguinal Medicine - [facility] hernia, w obst, w/o gangr, not spcf as recur Office Visit 04/08/2019 1:30p [facility] Lizette Miles, Z95.0 [facility] MChuck cardiac pacemaker I49.5 Sick sinus syndrome Z95.2 Presence of prosthetic heart valve I48.0 Paroxysmal atrial fibrillation Office Visit 03/12/2019 2:30p [facility] Tequila Suárez Z95.818 Presence of Of Holly German N.P. other cardiac implants and grafts Z95.0 Presence of cardiac pacemaker I49.5 Sick sinus syndrome I48.0 Paroxysmal atrial fibrillation Assessments Date Code Description Provider 08/05/2019 Z95.0 Presence of cardiac pacemaker Remote Device Checks 08/05/2019 I49.5 Sick sinus syndrome Remote Device Checks 08/05/2019 I48.0 Paroxysmal atrial fibrillation Remote Device Checks 06/06/2019 J06.9 Acute upper respiratory infection, Dereje Fuentes, [employer] unspecified 06/06/2019 R05 Cough Dereje Fuentes, [employer] 06/06/2019 Z23 Encounter for immunization Dereje Fuentes, [facility] 05/20/2019 K40.90 Unilateral inguinal hernia, without [place]ЬГ[place] obstruction or gangrene, not specified as recurrent 05/13/2019 K40.90 Unilateral inguinal hernia, without Franklin Wills MD obstruction or gangrene, not specified as recurrent 05/01/2019 Z95.0 Presence of cardiac pacemaker Lizette Miles M.D. 05/01/2019 Z95.0 Presence of cardiac pacemaker Remote Device Checks 05/01/2019 I49.5 Sick sinus syndrome Lizette Miles M.D. 05/01/2019 I49.5 Sick sinus syndrome Remote Device Checks 04/10/2019 K40.90 Unilateral inguinal hernia, without Franklin Wills MD obstruction or gangrene, not specified as recurrent 04/09/2019 K40.30 Unilateral inguinal hernia, with Elizabeth Berry MD obstruction, without gangrene, not specified as recurrent 04/08/2019 Z95.0 Presence of cardiac pacemaker Lizette Miles M.D. 04/08/2019 Z95.0 Presence of cardiac pacemaker Lizette Miles M.D. 04/08/2019 Z95.0 Presence of cardiac pacemaker Ica Pacer Schedule 04/08/2019 I49.5 Sick sinus syndrome Lizette Miles M.D. 04/08/2019 I49.5 Sick sinus syndrome Ica Pacer Schedule 04/08/2019 Z95.2 Presence of prosthetic heart valve Lizette Miles M.D. 04/08/2019 I48.0 Paroxysmal atrial fibrillation Ica Pacer Schedule 04/08/2019 I48.0 Paroxysmal atrial fibrillation Lizette Miles M.D. 03/12/2019 Z95.818 Presence of other cardiac implants and Tequila German N.P. grafts 03/12/2019 Z95.0 Presence of cardiac pacemaker Tequila German, N.P. 03/12/2019 I49.5 Sick sinus syndrome Tequila German, N.P. 03/12/2019 I48.0 Paroxysmal atrial fibrillation Tequila German, N.P. 02/28/2019 Z95.818 Presence of other cardiac implants and Lizette Miles M.D. grafts Plan of Treatment Future Appointment(s):09/09/2019 2:20 pm - Elizabeth Berry MD at [facility] Internal Medicine - [facility]10/07/2019 1:50 pm - Lizette Miles M.D. at [facility]10/07/2019 1:30 pm - Ica Pacer Schedule at [facility]2019 - Dereje Fuentes, FNPJ06.9 Acute upper respiratory infection, unspecifiedNew Medication:Guaifenesin-Codeine 100-10 mg/5ML - take 10 milliliters by mouth every evening with plenty of water as needed for cough for 5 days as neededFluticasone Propionate 50 mcg/Act - use 2 sprays in each nostril one time a dayComments:Your symptoms likely caused by a viral infection that caused increased postnasal drip.Will treat thecough at night and the nasal congestion to reduce postnasal drip.I am sending in an RX for Guaifenesin with codeine. Take it in the evenings. Please avoid other antitussive medications. I will also give you a steroid nasal spray to treat nasal congestion that may be causing the cough when you lie down. It is important that you keep well hydrated. I recommend topical treatments: joshua, licorice, honey, cough drops If your symptoms persist or worsen in the next week or so please give us a call for further evaluation of your symptoms. You may need to start additional medication.Follow up:as [id number] CoughComments:Cough suppressants or mucolytic drugs:We do not recommend the use of cough suppressants or mucolyticagents. Coughing is an important mechanism for clearing secretions from the airways and can assist in recovery from respiratory infections. Therefore,we reserved this if cough is troubling and interferes with daily activity or sleep.Z23 Encounter for immunizationComments: PrevinaWe discussed vaccination against pneumonia, this vaccine is called Prevnar 13. This vaccine is effective for a lifetime.This is your second vaccination for pneumonia and this will complete yourvaccination requirement against pneumonia. Functional Status Description No Information Available Mental Status Description No Information Available Referrals Refer to Reason for Referral Status Appt Date Franklin Wills MD Scheduled 04/10/2019 [facility] [place] [address] [phone]
--- NOTE | 2019-08-17 15:38 | UC ---
Lower Extremity/Ankle HPI - HPI Summary HPI Summary: Patient fell this morning because he states " his legs gave out while standing at the sink." Has had bilateral leg pain since 08/15/19. States his PCP had raised his metoprolol to 50. After this increase leg pain started. Now back to 25mg. Cardiac HX. Has pacemaker - History of Current Complaint Chief Complaint: UCLowerExtremity Stated Complaint: LEG PAIN Time Seen by Provider: 08/17/19 15:37 Hx Obtained From: Patient - Allergies/Home Medications Allergies/Adverse Reactions: Allergies Allergy/AdvReac Type Severity Reaction Status Date / Time mold Allergy Intermediate Sneezing Verified 08/17/19 15:50 pollen extracts Allergy Intermediate Sneezing Verified 08/17/19 15:50 ragweed pollen Allergy Intermediate Sneezing Verified 08/17/19 15:50 No Known Drug Allergies Allergy Unknown Unknown Verified 08/17/19 15:50 Reaction Details seasonal allergies Allergy Intermediate Congestion Uncoded 05/13/19 12:19 Home Medications: Home Medications Aspirin [Aspirin Adult Low Dose 81 MG] 81 mg PO QAM 11/03/14 [History Confirmed 08/17/19] Atorvastatin* [Lipitor 20 MG*] 30 mg PO BEDTIME 05/01/18 [History Confirmed ] Magnesium Oxide [Magnesium] 400 mg PO BID 05/02/18 [History Confirmed 08/17/19] Metoprolol Succinate XL TAB* [Toprol XL TAB*] 25 mg PO QAM 02/27/19 [History Confirmed 08/17/19] Acetaminophen [APAP] 325 - 650 mg PO Q4H PRN 05/08/19 [History Confirmed ] PMH/Surg Hx/FS Hx/Imm Hx Previously Healthy: Yes Cardiovascular History: Cardiac Disease, Hypertension - Surgical History Surgical History: Yes Surgery Procedure, Year, and Place: AORTIC VALVE REPLACEMENT 10/2017,VASECTOMY, TOE STRAIGHTENING, CARDIO CONVERSION. cholecystectomy- 2017,. pacemaker placed 08/2018. event monitor removed 02/2019. TURP- 20-25 years ago - Family History Known Family History: Negative: Hypertension, Diabetes - Social History Alcohol Use: Weekly Alcohol Amount: 3-4 weekly Substance Use Type: None Smoking Status (MU): Former Smoker Amount Used/How Often: smoked in college - Immunization History Most Recent Influenza Vaccination: Fall 2017 Most Recent Pneumonia Vaccination: 2017 Review of Systems All Other Systems Reviewed And Are Negative: Yes Constitutional: Negative: Fever Skin: Negative: Rash Neurovascular: Negative: Decreased Sensation Musculoskeletal: Positive: Other: - l LEG PAIN, BOTH KNEES HURT. Negative: Decreased ROM Physical Exam Triage Information Reviewed: Yes Appearance: Well-Appearing, Other: - PT IN WHEELCHAIR Vital Signs Reviewed: Yes Respiratory: Positive: No respiratory distress Musculoskeletal: Positive: ROM Intact - L knee, Edema @ - L calf, Other: - L calf cord felt w/ tenderness but NO redness. Neurological: Positive: Alert Lower Extremity Course/Dx - Course Course Of Treatment: gIVEN RISK FACTORS AND EXAM FINDINGS OF l CALF PAIN W/ PAINFUL CORD WILL SEND TO ed VIA HIS (HE IS STABLE) TO BE EVALUATED AND GET DOPPLER. I EXPLAINED THAT ALTHOUGH IT MAY NOT BE DVT IT MUST BE RULED OUT. OF NOTE THEY CALLED AHEAD AND OUR STAFF TOLD THEM TO GO TO ED BUT THEY CAME HERE ANYWAY. VITALS GOOD. - Differential Dx/Diagnosis Differential Diagnosis/HQI/PQRI: DVT, Phlebitis, Other Provider Diagnosis: Pain of left calf Discharge ED - Sign-Out/Discharge Documenting (check all that apply): Patient Departure All imaging exams completed and their final reports reviewed: No Studies - Discharge Plan Condition: Good Disposition: HOME-RECOMMEND TO ED Patient Education Materials: Deep Vein Thrombosis (ED) Referrals: Elizabeth Berry MD [Primary Care Provider] - Additional Instructions: GIVEN YOUR RISK FACTORS AND EXAM FINDINGS I WOULD LIKE TO RULE OUT A BLOOD CLOT. WE TRIED TO HAVE YOU GO TO THE EMERGENCY ROOM BEFORE COMING HERE. BUT AFTER CAREFUL CONSIDERATION AND EVALUATION YOU SHOULD GO DIRECTLY TO THE EMERGENCY ROOM TO RULE IT OUT. - Billing Disposition and Condition Condition: GOOD Disposition: Home-Recommend to ED
[2019-08-17 15:47] VITALS: BP 144/82
== END 2019-08-17 16:19 | disposition home health service (06) ==
LOC: UCEAST 13:14
DX: S86.919A Strain of unspecified muscle(s) and tendon(s) at lower leg level, unspecified leg, initial encounter (principal); M79.662 Pain in left lower leg; M25.562 Pain in left knee; M25.561 Pain in right knee; R60.0 Localized edema; I11.0 Hypertensive heart disease with heart failure; Z95.2 Presence of prosthetic heart valve; Z79.82 Long term (current) use of aspirin; Z79.899 Other long term (current) drug therapy; Z91.09 Other allergy status, other than to drugs and biological substances; Z87.891 Personal history of nicotine dependence; I25.10 Atherosclerotic heart disease of native coronary artery without angina pectoris; I50.9 Heart failure, unspecified; E78.00 Pure hypercholesterolemia, unspecified; R55 Syncope and collapse; N40.0 Benign prostatic hyperplasia without lower urinary tract symptoms; Z95.0 Presence of cardiac pacemaker; Z95.4 Presence of other heart-valve replacement; Z86.73 Personal history of transient ischemic attack (TIA), and cerebral infarction without residual deficits; X58.XXXA Exposure to other specified factors, initial encounter; Y92.9 Unspecified place or not applicable
CPT/HCPCS: 99212; G0463

== ENCOUNTER 2019-08-17 16:50 | Emergency (ER) | payer MEDICARE, BC ==
--- NOTE | 2019-08-17 17:15 | ED ---
Lower Extremity - HPI Summary HPI Summary: Patient complains of bilateral calf pain, L>R, after long walk 3 days ago. Patient went to urgent care and was sent to the ED for rule out of DVT. No history of blood clots, no anti-coag. Pain is worse with stretching of calves, and walking. Denies any other pain, injury, symptoms. Medical history is HTN, pace maker, syncope. - History of Current Complaint Chief Complaint: EDExtremityLower Stated Complaint: TIGHTNESS/PAIN IN LOWER LEGS PER PT Time Seen by Provider: 08/17/19 17:13 Hx Obtained From: Patient Mechanism Of Injury: Other Onset of Pain: Days Onset/Duration: Days Severity Initially: Mild Severity Currently: Mild Pain Intensity: 3 Pain Scale Used: 0-10 Numeric Timing: Constant Location: Is Discrete @ Character Of Pain: Aching Associated Signs And Symptoms: Positive: Negative Aggravating Factor(s): Standing, Ambulation, Movement Alleviating Factor(s): Rest Able to Bear Weight: Yes - Allergies/Home Medications Allergies/Adverse Reactions: Allergies Allergy/AdvReac Type Severity Reaction Status Date / Time mold Allergy Intermediate Sneezing Verified 08/17/19 15:50 pollen extracts Allergy Intermediate Sneezing Verified 08/17/19 15:50 ragweed pollen Allergy Intermediate Sneezing Verified 08/17/19 15:50 No Known Drug Allergies Allergy Unknown Unknown Verified 08/17/19 15:50 Reaction Details seasonal allergies Allergy Intermediate Congestion Uncoded 05/13/19 12:19 Home Medications: Home Medications Aspirin [Aspirin Adult Low Dose 81 MG] 81 mg PO QAM 11/03/14 [History Confirmed 08/17/19] Atorvastatin* [Lipitor 20 MG*] 30 mg PO BEDTIME 05/01/18 [History Confirmed ] Magnesium Oxide [Magnesium] 400 mg PO BID 05/02/18 [History Confirmed 08/17/19] Metoprolol Succinate XL TAB* [Toprol XL TAB*] 25 mg PO QAM 02/27/19 [History Confirmed 08/17/19] Acetaminophen [APAP] 325 - 650 mg PO Q4H PRN 05/08/19 [History Confirmed ] PMH/Surg Hx/FS Hx/Imm Hx Endocrine/Hematology History: Denies: Hx Diabetes Cardiovascular History: Reports: Hx Coronary Artery Disease, Hx Hypercholesterolemia, Hx Hypertension, Hx Pacemaker/ICD - 4/, Hx Valvular Heart Disease - aortic valve replacement 2017, Other Cardiovascular Problems/ Disorders - , AV REPLACEMENT Denies: Hx Angina, Hx Myocardial Infarction Respiratory History: Denies: Hx Asthma, Hx Chronic Obstructive Pulmonary Disease (COPD) GI History: Reports: Hx Gall Bladder Disease History: Reports: Hx Benign Prostatic Hyperplasia, Other Problems/ Disorders - TURP, VASECTOMY, BPH Denies: Hx Chronic Renal Failure, Hx Renal Disease Sensory History: Reports: Hx Cataracts - early signs of, Hx Contacts or Glasses - glasses Denies: Hx Hearing Aid Opthamlomology History: Reports: Hx Cataracts - early signs of, Hx Contacts or Glasses - glasses Neurological History: Reports: Hx Transient Ischemic Attacks (TIA), Other Neuro Impairments/Disorders - SDH Denies: Hx Headaches, Hx Seizures Psychiatric History: Denies: Hx Panic Disorder - Cancer History Hx Chemotherapy: No - Surgical History Surgery Procedure, Year, and Place: AORTIC VALVE REPLACEMENT 10/2017,VASECTOMY, TOE STRAIGHTENING, CARDIO CONVERSION. cholecystectomy- 2017,. pacemaker placed 08/2018. event monitor removed 02/2019. TURP- 20-25 years ago Hx Anesthesia Reactions: No Infectious Disease History: No Infectious Disease History: Denies: Hx Clostridium Difficile, Hx Hepatitis, Hx Human Immunodeficiency Virus (HIV), Hx of Known/Suspected MRSA, Hx Shingles, Hx Tuberculosis, History Other Infectious Disease, Traveled Outside the [place] in Last 30 Days - Family History Known Family History: Negative: Hypertension, Diabetes - Social History Alcohol Use: Weekly Alcohol Amount: 3-4 weekly Substance Use Type: Reports: None Smoking Status (MU): Former Smoker Amount Used/How Often: smoked in college Review of Systems Constitutional: Negative Eyes: Negative ENT: Negative Cardiovascular: Negative Respiratory: Negative Gastrointestinal: Negative Genitourinary: Negative Musculoskeletal: Other Skin: Negative Neurological/Mental Status: Negative Psychological: Normal All Other Systems Reviewed And Are Negative: Yes Physical Exam - Summary Physical Exam Summary: Tenderness to calves bilaterally. No swelling, erythema, ecchymosis, deformity , tenderness noted bilaterally. PMS intact distally bilaterally. Triage Information Reviewed: Yes Vital Signs On Initial Exam: Initial Vitals Temp Pulse Resp BP Pulse Ox 97.5 F 81 16 160/90 99 08/17/19 16:52 08/17/19 16:52 08/17/19 16:52 08/17/19 16:52 08/17/19 16:52 Vital Signs Reviewed: Yes Appearance: Positive: Well-Appearing Skin: Positive: Warm Head/Face: Positive: Normal Head/Face Inspection Eyes: Positive: Normal Neck: Positive: Supple Respiratory/Lung Sounds: Positive: Clear to Auscultation Cardiovascular: Positive: Normal Abdomen Description: Positive: Nontender Musculoskeletal: Positive: Normal Neurological: Positive: Normal Psychiatric: Positive: Normal AVPU Assessment: Alert - [place] Coma Scale Best Eye Response: 4 - Spontaneous Best Motor Response: 6 - Obeys Commands Best Verbal Response: 5 - Oriented Coma Scale Total: 15 Procedures - Sedation Patient Received Moderate/Deep Sedation with Procedure: No Diagnostics - Vital Signs Vital Signs Temp Pulse Resp BP Pulse Ox 08/17/19 16:52 97.5 F 81 16 160/90 99 - Laboratory Lab Statement: Any lab studies that have been ordered have been reviewed, and results considered in the medical decision making process. Lower Extremity Course/Dx - Course Course Of Treatment: Patient complains of bilateral calf pain, L>R, after long walk 3 days ago. Patient went to urgent care and was sent to the ED for rule out of DVT. No history of blood clots, no anti-coag. Pain is worse with stretching of calves, and walking. Denies any other pain, injury, symptoms. Medical history is HTN, pace maker, syncope. Vital signs within normal limits. negative for dvt bilat per [place]. - Diagnoses Provider Diagnoses: Strain of calf muscle Discharge ED - Sign-Out/Discharge Documenting (check all that apply): Patient Departure - Discharge Plan Condition: Stable Disposition: HOME Patient Education Materials: Muscle Strain (ED) Referrals: Elizabeth Berry MD [Primary Care Provider] - Additional Instructions: Stretch muscles gently. Heating pad may help. Continue taking Tylenol as directed. Follow-up with primary care. - Billing Disposition and Condition Condition: STABLE Disposition: Home
[2019-08-17] MEDS ORDERED: Acetaminophen TAB* 325 MG PO ONE (17:29)
[2019-08-17 20:26] VITALS: BP 129/69
== END 2019-08-17 20:25 | disposition home or self-care (01) ==
LOC: ED 16:50
DX: S86.919A Strain of unspecified muscle(s) and tendon(s) at lower leg level, unspecified leg, initial encounter (principal); M79.662 Pain in left lower leg; M79.661 Pain in right lower leg; I11.0 Hypertensive heart disease with heart failure; I25.10 Atherosclerotic heart disease of native coronary artery without angina pectoris; E78.00 Pure hypercholesterolemia, unspecified; I50.9 Heart failure, unspecified; R55 Syncope and collapse; N40.0 Benign prostatic hyperplasia without lower urinary tract symptoms; Z95.0 Presence of cardiac pacemaker; Z79.899 Other long term (current) drug therapy; Z79.82 Long term (current) use of aspirin; Z95.4 Presence of other heart-valve replacement; Z86.73 Personal history of transient ischemic attack (TIA), and cerebral infarction without residual deficits; Z87.891 Personal history of nicotine dependence; X58.XXXA Exposure to other specified factors, initial encounter; Y92.9 Unspecified place or not applicable
CPT/HCPCS: 93970; 99282; A9270-GY

== ENCOUNTER 2019-09-18 15:28 | Observation (INO) | payer MEDICARE, BC ==
--- OUTSIDE RECORDS SUMMARY | 2019-09-18 15:43 | XMS REPORT | Continuity of Care Document ---
:1945 External Reference #:[id number] Author Name Caridad No NP (transmitted by agent of provider Jing Fox) Address [address], [place] [address] Care Team Providers Name Role Phone Lizette Miles MD - Cardiovascular Care Team Information Reel Stripper Disease Gentry Rangel M.D. - Neurological Care Team Information Reel Stripper Surgery Elizabeth Berry MD - Internal Medicine Care Team Information Reel Stripper [phone] [facility] Care Team Information Reel Stripper [place] - Physical Therapist Problems Active Problems Provider Date Paroxysmal atrial [...] Sivakumar Rashid M.D.,FACP Onset: 04/22/2018 Note: laparoscopy [facility] in situ Lizette Miles M.D. [...] bike 5-6 days of the week at [facility]. Restarted cardiac rehab 05/10/18 Allergies, Adverse Reactions, Alerts Active Allergies Reaction Severity Comments Date NKDA 01/05/2017 Ragweed 04/27/2018 Dust Mites 04/27/2018 Mold 04/27/2018 Pollen 04/27/2018 Medications Active Medications SIG Qnty Indications Ordering Date Provider Guaifenesin-Codeine take 10 118ml J06.9 Dereje Fuentes, 06/06/2019 milliliters by CUSTOMER OPERATIONS INTERN 100-10mg/5ML Solution mouth every evening with plenty of water as needed for cough for 5 days as needed Fluticasone use 2 sprays in 16units J06.9 Dereje Fuentes, 06/06/2019 Propionate each nostril one CUSTOMER OPERATIONS INTERN 50mcg/Act time a day Suspension Shingrix inject [...] once daily 90tabs Lizette Miles, 11/23/2017 ER M.D. 25mg Tablets ER 24HR Atorvastatin Calcium 1.5 tablets (30 135tabs Lizette Funksher, 11/15/2017 mg) by mouth every M.D. 20mg Tablets day Aspirin Low Dose 1 by mouth every Unknown 81mg day ( Am ) Tablets DR Eduin Medications Baclofen take 1 tablet by 14tabs Elizabeth Berry MD 08/22/2019 - 10mg Tablets mouth every 8 08/26/2019 hours as needed for muscle spasms Immunizations CPT Code Status Date Vaccine Reaction Lot # [id number] Given 06/06/2019 Pneumococcal Conjugate No immediate [id number] Vaccine 13 Valent For reaction..jh Intramuscular Use 13309 Given 02/25/2019 Fluzone High Dose 55271 Given 03/10/2018 Influenza Virus Vaccine, Quadrivalent, Split, Preservative Free 69734 Given 03/06/2018 Influenza Virus Vaccine, Quadrivalent, Split, Preservative Free 46863 Given 07/10/2017 Pneumococcal Conjugate [id number] Vaccine 13 Valent For Intramuscular Use 02320 Given 04/04/2017 Influenza Virus Vaccine, Quadrivalent, Split, Preservative Free 13515 Given 11/28/2012 Tdap - Tetanus/Diptheria/Acellular Pertussis 06586 Given 06/02/2010 Pneumonia Vaccine Vital Signs Date [...] 16 /min Body Temperature 97.6 F Results Description No Information Available Procedures Date Code Description Status 08/05/2019 45586 Icd Eval Sing,Dual,Multi Lead Remote Recpt Transm Tech Completed Rev Tech S 08/05/2019 62328 Icd Eval Sing,Dual,Multi Lead Remote Recpt Transm Tech Completed Rev Tech S 08/05/2019 29780 Pacemaker Check Remote Up To 90Days Completed Single,Dual,Multiple Lead 08/05/2019 11645 Pacemaker Check Remote Up To 90Days Completed Single,Dual,Multiple Lead 05/13/2019 37057 Laparoscopy, Surgical Repair Initial Inguinal Hernia Completed 05/01/2019 68689 Icd Eval Sing,Dual,Multi Lead Remote Recpt Transm Tech Completed Rev Tech S 05/01/2019 84740 Icd Eval Sing,Dual,Multi Lead Remote Recpt Transm Tech Completed Rev Tech S 05/01/2019 90334 Pacemaker Check Remote Up To 90Days Completed Single,Dual,Multiple Lead 05/01/2019 06501 Pacemaker Check Remote Up To 90Days Completed Single,Dual,Multiple Lead 04/08/2019 39618 Pace Maker Eval W/Iterative Adjment Dual Lead Completed 04/08/2019 93490 Pace Maker Eval W/Iterative Adjment Dual Lead Completed 11/05/2014 62074459 Colonoscopy Completed Medical Devices Description No Information Available Encounters Type Date Location Provider Dx Diagnosis Office Visit 09/10/2019 [facility] Caridad No, R60.9 Edema, unspecified 9:[facility] S[facility]ED[facility] Office Visit 06/06/2019 [facility] Dereje Fuentes, J06.9 Acute upper 11:30a [facility] CUSTOMER OPERATIONS INTERN respiratory infection, unspecified R05 Cough Z23 Encounter for immunization Office Visit 04/10/2019 11:45a Surgical Franklin Rey K40.90 [facility] MD Johann hernia, w/o obst or gangr, not spcf as recur Office Visit 04/09/2019 10:20a [facility] Elizabeth Berry K40.30 [facility], w obst, w/o gangr, not spcf as recur Office Visit 04/08/2019 1:30p [facility] Lizette Miles, Z95.0 Presence of Of Holly Lora cardiac pacemaker I49.5 Sick sinus syndrome Z95.2 Presence of prosthetic heart valve I48.0 Paroxysmal atrial fibrillation Assessments Date Code Description Provider 09/10/2019 R60.9 Edema, unspecified Caridad No NP 08/05/2019 Z95.0 Presence of cardiac pacemaker Liztete Miles M.D. 08/05/2019 Z95.0 Presence of cardiac pacemaker Remote Device Checks 08/05/2019 I49.5 Sick sinus syndrome Lizette Miles M.D. 08/05/2019 I49.5 Sick sinus syndrome Remote Device Checks 08/05/2019 I48.0 Paroxysmal atrial fibrillation Lizette Miles M.D. 08/05/2019 I48.0 Paroxysmal atrial fibrillation Remote Device Checks 06/06/2019 J06.9 Acute upper respiratory infection, Dereje Fuentes, CUSTOMER OPERATIONS INTERN unspecified 06/06/2019 R05 Cough Dereje Fuentes, CUSTOMER OPERATIONS INTERN 06/06/2019 Z23 Encounter for immunization Dereje Fuentes, CUSTOMER OPERATIONS INTERN 05/20/2019 K40.90 Unilateral inguinal hernia, without ОЛЬГА [...] I48.0 Paroxysmal atrial fibrillation Lizette Miles M.D. Plan of Treatment Future Appointment(s):10/07/2019 1:50 pm - [facility] at [facility]/07/2019 1:30 pm - Ica Pacer Schedule at [facility]09/10/2019 - Caridad No, NPR60.9 Edema, unspecifiedComments:We talked about your lt forearm and lt lower leg swelling after sleeping or your lt side. Because the swelling decreases through the day and does not cause pain, I suggest that you continue on the treatment plan that you have come up with.We talked about Tylenol and that you are taking below the maximum daily dose and it is helping, so you may continue this and increase the dose is you need to. We also talked about your physical activity as we are not nearly as active with social distancing at this time. Continue with the exercises that PT has shown you with your lower legs and add some range of motion exercises to your arms. Drink fluids with "something in it" as your decal decorator suggested to limit your free water intake. Add some decaf tea or crystal light or continue with the Gatorade zero. If anything changes, edema increases, pain develops or and changes in sensation in arms or hands develop, please let us know so you can be seen or go to the ER for chest pain or shortness of breath. Functional Status Description No Information Available Mental Status Description No Information Available Referrals Refer to Reason for Referral Status Appt Date Franklin Wills MD Scheduled 04/10/[address] [place] [address] [phone]
--- OUTSIDE RECORDS SUMMARY | 2019-09-18 15:44 | XMS REPORT | Continuity of Care Document ---
:1945 External Reference #:[id number] Author Name Caridad No, JULISA Address [address], [place] [address] Care Team Providers Name Role Phone Lizette Miles MD - Cardiovascular Care Team Information Cook Taco Disease Gentry Rangel M.D. - Neurological Care Team Information [place] [phone] Surgery Elizabeth Berry MD - Internal Medicine Care Team Information [place] [facility] Care Team Information Cook Taco [place] - Physical Therapist Problems Active Problems Provider [...] bike 5-6 days of the week at [facility]. Restarted cardiac rehab 05/10/18 Allergies, Adverse Reactions, Alerts Active Allergies Reaction Severity Comments Date NKDA 01/05/2017 Ragweed 04/27/2018 Dust Mites 04/27/2018 Mold 04/27/2018 Pollen 04/27/2018 Medications Active Medications SIG Qnty Indications Ordering Date Provider Guaifenesin-Codeine take 10 118ml J06.9 Dereje Fuentes, 06/06/2019 milliliters by CAREER COORDINATOR 100-10mg/5ML Solution mouth every evening with plenty of water as needed for cough for 5 days as needed Fluticasone use 2 sprays in 16units J06.9 Dereje Fuentes, 06/06/2019 Propionate each nostril one CAREER COORDINATOR 50mcg/Act time a day Suspension Shingrix inject [...] Code Status Date Vaccine Reaction Lot # [id number] Given 06/06/2019 Pneumococcal Conjugate No immediate [id number] Vaccine 13 Valent For reaction..jh Intramuscular Use 18572 Given 02/25/2019 Fluzone High Dose 99258 Given 03/10/2018 Influenza Virus Vaccine, Quadrivalent, Split, Preservative Free 53676 Given 03/06/2018 Influenza Virus Vaccine, Quadrivalent, Split, Preservative Free 26599 Given 07/10/2017 Pneumococcal Conjugate [id number] Vaccine 13 Valent For Intramuscular Use 99283 Given 04/04/2017 Influenza Virus Vaccine, Quadrivalent, Split, Preservative Free 04850 Given 11/28/2012 Tdap - Tetanus/Diptheria/Acellular Pertussis 47337 Given 06/02/2010 Pneumonia Vaccine Vital Signs Date [...] Available Procedures Date Code Description Status 08/05/2019 41219 Icd Eval Sing,Dual,Multi Lead Remote Recpt Transm Tech Completed Rev Tech S 08/05/2019 69345 Icd Eval Sing,Dual,Multi Lead Remote Recpt Transm Tech Completed Rev Tech S 08/05/2019 05798 Pacemaker Check Remote Up To 90Days Completed Single,Dual,Multiple Lead 08/05/2019 46149 Pacemaker Check Remote Up To 90Days Completed Single,Dual,Multiple Lead 05/13/2019 25297 Laparoscopy, Surgical Repair Initial Inguinal Hernia Completed 05/01/2019 59541 Icd Eval Sing,Dual,Multi Lead Remote Recpt Transm Tech Completed Rev Tech S 05/01/2019 14282 Icd Eval Sing,Dual,Multi Lead Remote Recpt Transm Tech Completed Rev Tech S 05/01/2019 56101 Pacemaker Check Remote Up To 90Days Completed Single,Dual,Multiple Lead 05/01/2019 36366 Pacemaker Check Remote Up To 90Days Completed Single,Dual,Multiple Lead 04/08/2019 28637 Pace Maker Eval W/Iterative Adjment Dual Lead Completed 04/08/2019 64828 Pace Maker Eval W/Iterative Adjment Dual Lead Completed 11/05/2014 40884220 Colonoscopy Completed Medical Devices Description No Information Available Encounters Type Date Location Provider Dx Diagnosis Office Visit 09/10/2019 [facility] Caridad No, R60.9 Edema, [facility] [employer]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 Office Visit 06/06/2019 [facility] Dereje Fuentes, J06.9 Acute upper 11:30[facility] CAREER COORDINATOR respiratory infection, unspecified R05 Cough Z23 Encounter for immunization Office Visit 04/10/2019 11:45a Surgical Franklin Rey K40.90 [facility] MD Johann hernia, w/o obst or gangr, not spcf as recur Office Visit 04/09/2019 10:20a [facility] Elizabeth Berry K40.30 [facility], w obst, w/o gangr, not spcf as recur Office Visit 04/08/2019 1:30p [facility] Lizette Miles, Z95.0 Presence of Of Holly Lora cardiac pacemaker I49.5 Sick sinus syndrome Z95.2 Presence of prosthetic heart valve I48.0 Paroxysmal atrial fibrillation Office Visit 03/12/2019 2:30p [facility] Tequila Suárez Z95.818 Presence of Of Holly German N.PJamil other cardiac implants and grafts Z95.0 Presence of cardiac pacemaker I49.5 Sick sinus syndrome I48.0 Paroxysmal atrial fibrillation Assessments Date Code Description Provider 09/10/2019 R60.9 Edema, unspecified Caridad No, JULISA 08/05/2019 Z95.0 Presence of cardiac pacemaker Lizette Miles M.D. 08/05/2019 Z95.0 Presence of cardiac pacemaker Remote Device Checks 08/05/2019 I49.5 Sick sinus syndrome Lizette Miles M.D. 08/05/2019 I49.5 Sick sinus syndrome Remote Device Checks 08/05/2019 I48.0 Paroxysmal atrial fibrillation Lizette Miles M.D. 08/05/2019 I48.0 Paroxysmal atrial fibrillation Remote Device Checks 06/06/2019 J06.9 Acute upper respiratory infection, Dereje Fuentes, CAREER COORDINATOR unspecified 06/06/2019 R05 Cough Dereje Fuentes, CAREER COORDINATOR 06/06/2019 Z23 Encounter for immunization Dereje Fuentes, [facility] 05/20/2019 K40.90 Unilateral inguinal hernia, [...] grafts 03/12/2019 Z95.0 Presence of cardiac pacemaker Edith Edge.P. 03/12/2019 I49.5 Sick sinus syndrome Tequila German N.P. 03/12/2019 I48.0 Paroxysmal atrial fibrillation Tequila German N.P. Plan of Treatment Future Appointment(s):10/07/2019 1:50 pm - Lizette Miles M.D. at [facility]10/07/2019 1:30 pm - Ica Pacer Schedule at [facility]09/10/2019 - Caridad No, NPR60.9 Edema, unspecifiedComments:We [...] fluids with "something in it" as your clerk travel reservations suggested to limit your free water intake. [...] Appt Date Franklin Wills MD Scheduled 04/10/2019 [address] [place] [address] [phone]
--- OUTSIDE RECORDS SUMMARY | 2019-09-18 15:44 | XMS REPORT | Continuity of Care Document ---
:1945 External Reference #:[id number] Author Name Remote Device Checks (transmitted by agent of provider Awa Gordon) Address [address] [facility] [place] [address] Care Team Providers Name Role Phone Lizette Miles MD - Cardiovascular Care Team Information Automobile Tester Disease Gentry Rangel M.D. - Neurological Care Team Information Automobile Tester Surgery Elizabeth Berry MD - Internal Medicine Care Team Information Automobile Tester Problems Active Problems Provider Date Paroxysmal atrial [...] bike 5-6 days of the week at [facility]. Restarted cardiac rehab 05/10/18 Allergies, Adverse Reactions, Alerts Active Allergies Reaction Severity Comments Date NKDA 01/05/2017 Ragweed 04/27/2018 Dust Mites 04/27/2018 Mold 04/27/2018 Pollen 04/27/2018 Medications Active Medications SIG Qnty Indications Ordering Date Provider Guaifenesin-Codeine take 10 118ml J06.9 Zsofia Alfredo, 06/06/2019 milliliters by RESAW OPERATOR 100-10mg/5ML Solution mouth every evening with plenty of water as needed for cough for 5 days as needed Fluticasone use 2 sprays in 16units J06.9 Zsofia Alfredo, 06/06/2019 Propionate each nostril one RESAW OPERATOR 50mcg/Act time a day Suspension Shingrix inject [...] once daily 90tabs Lizette Miles, 11/23/2017 ER Geno 25mg Tablets ER 24HR Atorvastatin Calcium 1.5 tablets (30 135tabs Lizette Miles, 11/15/2017 mg) by mouth every M.D. 20mg Tablets day Aspirin Low Dose 1 by mouth every Unknown 81mg day ( Am ) Tablets Immunizations CPT Code Status Date Vaccine Reaction Lot # [id number] Given 06/06/2019 Pneumococcal Conjugate No immediate [id number] Vaccine 13 Valent For reaction..jh Intramuscular Use 76625 Given 03/10/2018 Influenza Virus Vaccine, Quadrivalent, Split, Preservative Free 48069 Given 03/06/2018 Influenza Virus Vaccine, Quadrivalent, Split, Preservative Free 68944 Given 07/10/2017 Pneumococcal Conjugate [id number] Vaccine 13 Valent For Intramuscular Use 91984 Given 04/04/2017 Influenza Virus Vaccine, Quadrivalent, Split, Preservative Free 97148 Given 11/28/2012 Tdap - Tetanus/Diptheria/Acellular Pertussis 29911 Given 06/02/2010 Pneumonia Vaccine Vital Signs Date [...] Result H/L Range Note Laboratory test 02/28/2019 [facility] Surgical SEE RESULT [address] [place] [address] [phone] 1 SEE RESULT BELOW Name: LUCAS SPANN MADELYN : [address]: Lizette Miles MD Acct: [id number] Unit: [id number] AGE: 73 Location: [facility] Re02/28/19 SEX: M Status: REG REF SPEC: [id number] BRUCE: 02/28/19- DR: Lizette Miles MD REQ: [id number] RECD: 02/28/19 STATUS: BHARATI AREVALO DR: Elizabeth [...] 0.4 cm hameed metallic and translucent plastic bilingual medical receptionist with an inscription which reads [employer] SN [id number] facing the opposite direction reads [id number]. On the opposite side is reads [employer] with a QR barcode. Per established hospital medical staff protocol, no tissue is submitted. Gross only. Signed by and Reported on: Awa Nix MD 03/01/19 0959 END OF REPORT DEPARTMENT OF PATHOLOGY, [address] [place] [address] Tez Leo M.D. Director [facility] # [id number] Procedures Date Code Description Status 08/05/2019 36171 Icd Eval Sing,Dual,Multi Lead Remote Recpt Transm Tech Completed Rev Tech S 08/05/2019 01036 Icd Eval Sing,Dual,Multi Lead Remote Recpt Transm Tech Completed Rev Tech S 08/05/2019 54379 Pacemaker Check Remote Up To 90Days Completed Single,Dual,Multiple Lead 08/05/2019 68936 Pacemaker Check Remote Up To 90Days Completed Single,Dual,Multiple Lead 05/13/2019 32565 Laparoscopy, Surgical Repair Initial Inguinal Hernia Completed 05/01/2019 66997 Icd Eval Sing,Dual,Multi Lead Remote Recpt Transm Tech Completed Rev Tech S 05/01/2019 51535 Icd Eval Sing,Dual,Multi Lead Remote Recpt Transm Tech Completed Rev Tech S 05/01/2019 24387 Pacemaker Check Remote Up To 90Days Completed Single,Dual,Multiple Lead 05/01/2019 54744 Pacemaker Check Remote Up To 90Days Completed Single,Dual,Multiple Lead 04/08/2019 89278 Pace Maker Eval W/Iterative Adjment Dual Lead Completed 04/08/2019 94662 Pace Maker Eval W/Iterative Adjment Dual Lead Completed 02/28/2019 20763 Removal, Subcutaneous Caridac Rhythm Monitor Completed 11/05/2014 24294994 Colonoscopy Completed Medical Devices Description No Information Available Encounters Type Date Location Provider Dx Diagnosis Office Visit 06/06/2019 [facility] Internal Dereje Fuentes, J06.9 Acute upper 11:30a Medicine - [facility] RESAW OPERATOR respiratory infection, unspecified R05 Cough Z23 Encounter for immunization Office Visit 04/10/2019 11:45a Surgical Franklin Rey K40.[address] [facility] MD Johann hernia, w/o obst or gangr, not spcf as recur Office Visit 04/09/2019 10:20a [facility] Internal Elizabeth Berry K40.[address] [facility] inguinal Medicine - [facility] hernia, w obst, w/o gangr, not spcf as recur Office Visit 04/08/2019 1:30p [facility] Lizette Miles, Z95.0 Presence of Of Holly Lora cardiac pacemaker I49.5 Sick sinus syndrome Z95.2 Presence of prosthetic heart valve I48.0 Paroxysmal atrial fibrillation Office Visit 03/12/2019 2:30p [facility] Tequila Suárez Z95.818 Presence of Of Holly German, N.P. other cardiac implants and grafts Z95.0 Presence of cardiac pacemaker I49.5 Sick sinus syndrome I48.0 Paroxysmal atrial fibrillation Assessments Date Code Description Provider 08/05/2019 Z95.0 Presence of cardiac pacemaker Lizette Miles M.D. 08/05/2019 Z95.0 Presence of cardiac pacemaker Remote Device Checks 08/05/2019 I49.5 Sick sinus syndrome Lizette Miles M.D. 08/05/2019 I49.5 Sick sinus syndrome Remote Device Checks 08/05/2019 I48.0 Paroxysmal atrial fibrillation Lizette Miles M.D. 08/05/2019 I48.0 Paroxysmal atrial fibrillation Remote Device Checks 06/06/2019 J06.9 Acute upper respiratory infection, Lenkakleberalfredo Fuentes, [facility] unspecified 06/06/2019 R05 Cough Lenkaofialfredo Graciak, RESAW OPERATOR 06/06/2019 Z23 Encounter for immunization Dereje Fuentes, [facility] 05/20/2019 K40.90 Unilateral inguinal hernia, without ОЛЬГА [...] Presence of other cardiac implants and Tequila Benavides. Maxi, N.P. grafts 03/12/2019 Z95.0 Presence of cardiac pacemaker Tequila German, N.P. 03/12/2019 I49.5 Sick sinus syndrome Tequila German, N.P. 03/12/2019 I48.0 Paroxysmal atrial fibrillation Tequila German, N.P. 02/28/2019 Z95.818 Presence of other cardiac implants and Lizette Miles M.D. grafts Plan of Treatment Future Appointment(s):09/09/2019 2:20 pm - Elizabeth Berry MD at [facility] Internal Medicine - [facility]10/07/2019 1:50 pm - Lizette Miles M.D. at [facility]10/07/2019 1:30 pm - Ica Pacer Schedule at [facility]2019 - Dereje Fuentes FNPJ06.9 Acute upper respiratory infection, unspecifiedNew Medication:Guaifenesin-Codeine [...] may need to start additional medication.Follow up:as [id number] CoughComments:Cough suppressants or mucolytic drugs:We do not recommend the use of cough suppressants or mucolyticagents. Coughing is an important mechanism for clearing secretions from the airways and can assist in recovery from respiratory infections. Therefore,we reserved this if cough is troubling and interferes with daily activity or sleep.Z23 Encounter for immunizationComments: PrevnarWe discussed vaccination against pneumonia, this vaccine is called Prevnar 13. This vaccine is effective for a lifetime.This is your second vaccination for pneumonia and this will complete yourvaccination requirement against pneumonia. Functional Status Description No Information Available Mental Status Description No Information Available Referrals Refer to Reason for Referral Status Appt Date Franklin Wills MD Scheduled 04/10/2019 [address] [place] [address] [phone]
--- NOTE | 2019-09-18 15:57 | ED ---
Syncope/Near Syncope - HPI Summary HPI Summary: This patient is a 74 y/o male presenting to [facility] c/o an episode of near syncope this morning. Patient reports this morning he had blurry vision, right more than the left. He notes this has improved since but he still has some blurry vision present. He notes he also had an episode where he felt like fainting but did not have LOC or syncope. Patient states he has lost 10 lbs in the past 1 month. Denies fever, chills, chest pain, shortness of breath. Home Medications Medication Instructions Recorded Confirmed Type Aspirin [Aspirin Adult Low Dose 81 81 mg PO QAM 11/03/14 09/18/19 History MG] Atorvastatin* [Lipitor 20 MG*] 30 mg PO BEDTIME 05/01/18 09/18/19 History Magnesium Oxide [Magnesium] 400 mg PO BID 05/02/18 09/18/19 History Metoprolol Succinate XL TAB* 25 mg PO QAM 02/27/19 09/18/19 History [Toprol XL TAB*] Acetaminophen [APAP] 325 - 650 mg PO Q4H PRN 05/08/19 09/18/19 History - History Of Current Complaint Chief Complaint: EDSyncope Time Seen by Provider: 09/18/19 15:44 Hx Obtained From: Patient Onset/Duration: Lasting Hours, Still Present Timing: Hours Aggravating Factor(s): Nothing Alleviating Factor(s): Nothing Associated Signs And Symptoms: Other - POSITIVE: blurry vision. NEGATIVE: syncope, LOC, fever, chest pain, shortness of breath. - Allergies/Home Medications Allergies/Adverse Reactions: Allergies Allergy/AdvReac Type Severity Reaction Status Date / Time mold Allergy Intermediate Sneezing Verified 08/17/19 15:50 pollen extracts Allergy Intermediate Sneezing Verified 08/17/19 15:50 ragweed pollen Allergy Intermediate Sneezing Verified 08/17/19 15:50 No Known Drug Allergies Allergy Unknown Unknown Verified 08/17/19 15:50 Reaction Details seasonal allergies Allergy Intermediate Congestion Uncoded 05/13/19 12:19 Home Medications: Home Medications Aspirin [Aspirin Adult Low Dose 81 MG] 81 mg PO QAM 11/03/14 [History Confirmed 09/18/19] Magnesium Oxide [Magnesium] 400 mg PO BID 05/02/18 [History Confirmed 09/18/19] Metoprolol Succinate XL TAB* [Toprol XL TAB*] 25 mg PO QAM 02/27/19 [History Confirmed 09/18/19] Acetaminophen 325 - 650 mg PO Q4H PRN 05/08/19 [History Confirmed 09/18/19] Atorvastatin* [Lipitor 80 MG*] 80 mg PO BEDTIME #30 tab 09/19/19 [Rx] Clopidogrel TAB* [Plavix TAB*] 75 mg PO DAILY #30 tab 09/19/19 [Rx] PMH/Surg Hx/FS Hx/Imm Hx Endocrine/Hematology History: Denies: Hx Diabetes Cardiovascular History: Reports: Hx Coronary Artery Disease, Hx Hypercholesterolemia, Hx Hypertension, Hx Pacemaker/ICD - 4, Hx Valvular Heart Disease - aortic valve replacement 2017, Other Cardiovascular Problems/ Disorders - , AV REPLACEMENT Denies: Hx Angina, Hx Myocardial Infarction Respiratory History: Denies: Hx Asthma, Hx Chronic Obstructive Pulmonary Disease (COPD) GI History: Reports: Hx Gall Bladder Disease History: Reports: Hx Benign Prostatic Hyperplasia, Other Problems/ Disorders - TURP, VASECTOMY, BPH Denies: Hx Chronic Renal Failure, Hx Renal Disease Sensory History: Reports: Hx Cataracts - early signs of, Hx Contacts or Glasses - glasses Denies: Hx Hearing Aid Opthamlomology History: Reports: Hx Cataracts - early signs of, Hx Contacts or Glasses - glasses Neurological History: Reports: Hx Transient Ischemic Attacks (TIA), Other Neuro Impairments/Disorders - SDH Denies: Hx Headaches, Hx Seizures Psychiatric History: Denies: Hx Panic Disorder - Cancer History Hx Chemotherapy: No - Surgical History Surgical History: Yes Surgery Procedure, Year, and Place: AORTIC VALVE REPLACEMENT 10/2017,VASECTOMY, TOE STRAIGHTENING, CARDIO CONVERSION. cholecystectomy- 2017,. pacemaker placed 08/2018. event monitor removed 02/2019. TURP- 20-25 years ago Hx Anesthesia Reactions: No Infectious Disease History: No Infectious Disease History: Denies: Hx Clostridium Difficile, Hx Hepatitis, Hx Human Immunodeficiency Virus (HIV), Hx of Known/Suspected MRSA, Hx Shingles, Hx Tuberculosis, History Other Infectious Disease, Traveled Outside the [place] in Last 30 Days - Family History Known Family History: Negative: Hypertension, Diabetes - Social History Alcohol Use: Weekly Alcohol Amount: 3-4 weekly Substance Use Type: Reports: None Smoking Status (MU): Former Smoker Amount Used/How Often: smoked in college Review of Systems Negative: Fever, Chills Positive: Blurred Vision Negative: Chest Pain Negative: Shortness Of Breath Neurological/Mental Status: Other - POSITIVE: near syncope. NEGATIVE: LOC Negative: Syncope All Other Systems Reviewed And Are Negative: Yes Physical Exam - Summary Physical Exam Summary: VITAL SIGNS: Reviewed. GENERAL: Patient is a well-developed and nourished male who is lying comfortable in the stretcher. Patient is not in any acute respiratory distress. HEAD AND FACE: No signs of trauma. No ecchymosis, hematomas or skull depressions. No sinus tenderness. EYES: PERRLA, EOMI x 2, No injected conjunctiva, no nystagmus. EARS: Hearing grossly intact. Ear canals and tympanic membranes are within normal limits. MOUTH: Oropharynx within normal limits. NECK: Supple, trachea is midline, no adenopathy, no JVD, no carotid bruit, no c- spine tenderness, neck with full ROM. CHEST: Symmetric, no tenderness at palpation LUNGS: Clear to auscultation bilaterally. No wheezing or crackles. CVS: Regular rate and rhythm, S1 and S2 present, no murmurs or gallops appreciated. ABDOMEN: Soft, non-tender. No signs of distention. No rebound, no guarding, and no masses palpated. Bowel sounds are normal. EXTREMITIES: FROM in all major joints, no edema, no cyanosis or clubbing. NEURO: Alert and oriented x 3. No acute neurological deficits. Speech is normal and follows commands. SKIN: Dry and warm GCS: 15 Triage Information Reviewed: Yes Vital Signs On Initial Exam: Initial Vitals Temp Pulse Resp BP Pulse Ox 97.8 F 89 16 156/89 99 09/18/19 15:31 09/18/19 15:31 09/18/19 15:31 09/18/19 15:31 09/18/19 15:31 Vital Signs Reviewed: Yes Procedures - Sedation Patient Received Moderate/Deep Sedation with Procedure: No Diagnostics - Vital Signs Vital Signs Temp Pulse Resp BP Pulse Ox 09/18/19 15:31 97.8 F 89 16 156/89 99 - Laboratory Result Diagrams: 09/19/19 06:39 09/19/19 06:39 Lab Statement: Any lab studies that have been ordered have been reviewed, and results considered in the medical decision making process. - Radiology Chest XR Radiology Interpretation Completed By: Radiologist Summary of Radiographic Findings: IMPRESSION: 1. No acute cardiopulmonary process by radiograph. 2. Postoperative changes as above. 3. The cardiac monitoring device has been removed. Dr. Coles has reviewed this report. - CT Brain CT CT Interpretation Completed By: Radiologist Summary of CT Findings: IMPRESSION: No acute intracranial abnormality by CT. Dr. Coles has reviewed this report. - EKG 1604 Cardiac Rate: NL - at 82 bpm EKG Rhythm: Sinus Rhythm EKG Comparison: No Significant Change - similar to prior EKG on 09/15/18. Summary of EKG Findings: EKG at 1604 shows sinus rhythm at a rate of 82 bpm. No STEMI. Multiple PVCs. Similar to prior EKG on 09/15/18. This EKG was interpreted and reviewed by ED physician. Re-Evaluation - Re-Evaluation First Eval Re-Evaluation Time: 18:35 Comment: [employer] reports there were no episodes observed and pacemaker looks good. Course/Dx Assessment/Plan: This patient is a 74 y/o male presenting to [facility] c/o an episode of near syncope this morning. Patient reports this morning he had blurry vision, right more than the left. He notes this has improved since but he still has some blurry vision present. He notes he also had an episode where he felt like fainting but did not have LOC or syncope. Patient states he has lost 10 lbs in the past 1 month. Denies fever, chills, chest pain, shortness of breath. In the ED course the patient was placed in a night monitor, IV access was obtained, IV fluids were started. Past medical records reviewed. Blood test w/o a significant abnormality except for WBC of 12, hemoglobin of 13 , hematocrit of 36, platelets 637, absolute neutrophils reveals 8.8, sodium 131 , chloride 98, glucose 109, alkaline phosphatase is 114, troponin 0.03, CRP of 69.6, albumin/globulin ratio of 0.9. EKG sinus rhythm without any ST elevations. CXR IMPRESSION: 1. No acute cardiopulmonary process by radiograph. 2. Postoperative changes as above. 3. The cardiac monitoring device has been removed. Head CT IMPRESSION: No acute intracranial abnormality by CT. Dr. Miles, officer lieutenant, recommended interrogation of the pacemaker. I discussed my physical exam and test results with Dr. Hwang from the hospitalist services and she agrees to admit the patient to her services. The patient is hemodynamically stable, alert and oriented x 3. - Diagnoses Provider Diagnoses: Near syncope - Physician Notifications Discussed Care of Patient With: Lizette Miles Time Discussed With Above Provider: 18:13 Instructed by Provider To: Other - Dr. Miles, officer lieutenant, recommended interrogation of the pacemaker [employer]. [18:50] Discussed with Dr. Hwang, hospitalist, who accepted the patient for admission. - Critical Care Time Critical Care Statement: Critical care time is provided exclusive of any time spent performing procedures. Discharge ED - Sign-Out/Discharge Documenting (check all that apply): Patient Departure [place] [facility] [place] Condition: Stable Disposition: ADMITTED TO [facility] - Billing Disposition and Condition Condition: STABLE Disposition: Admitted to [place] [facility] - Attestation Statements Document Initiated by Scribe: Yes Documenting Scribe: Brandee Bravo Provider For Whom Scribe is Documenting (Include Credential): Hadley Coles MD Scribe Attestation: Brandee Lozano scribed for Hadley Coles MD on 09/20/19 at 0712. Scribe Documentation Reviewed: Yes Provider Attestation: The documentation as recorded by the Brandee light accurately reflects the service I personally performed and the decisions made by Hadley dobbs MD Status of Scribe Document: Viewed
[2019-09-18 16:59] LABS: ABS Basophils 0.1 10^3/ul (0-0.2); ABS Eosinophils 0.2 10^3/ul (0-0.6); ABS Lymphocytes 1.7 10^3/ul (1.0-4.8); ABS Monocytes 1.1 10^3/ul (0-0.8); ABS Neutrophils 8.8 10^3/ul (1.5-7.7); Eosinophil % 1.9 %; Hematocrit 36 % (42-52); Lymphocyte % 14.6 %; Mean Corpuscular HGB Conc 36 g/dL (31-36); Mean Corpuscular Hemoglobin 32 pg (27-31); Mean Corpuscular Volume 88 fL (80-94); Mean Platelet Volume 6.9 fL (7.4-10.4); Nucleated Red Blood Cells % 0.1; Platelet Count 637 10^3/uL (150-450); Red Blood Count 4.09 10^6 /uL (4.18-5.48); Red Cell Distribution Width 14 % (10-15)
[2019-09-18 17:07] LABS: Activated Partial Thrombo Time 33.3 seconds (26.0-38.0)
[2019-09-18 17:28] LABS: ALT 28 U/L (7-52); AST 21 U/L (13-39); Albumin 3.4 g/dL (3.2-5.2); Albumin/Globulin Ratio 0.9 (1-3); Alkaline Phosphatase 114 U/L (34-104); Anion Gap 7 mmol/L (2-11); BUN/Creatinine Ratio 26.4 (8-20); Blood Urea Nitrogen 19 mg/dL (6-24); C Reactive Protein 69.64 mg/L (<8.01); CO2 Carbon Dioxide 26 mmol/L (22-32); Chloride 98 mmol/L (101-111); Creatine Kinase 46 U/L (10-223); EGFR African American 129.1 (>60); EGFR Non-African American 106.7 (>60); Globulin 3.6 g/dL (2-4); Glucose 109 mg/dL (70-100); Potassium 4.5 mmol/L (3.5-5.0); Sodium 131 mmol/L (135-145)
[2019-09-18 17:34] LABS: Troponin I 0.03 ng/mL (<0.03)
[2019-09-18 18:05] LABS: TSH (Thyroid Stimulating Horm) 4.14 mcIU/mL (0.34-5.60)
[2019-09-18 18:53] LABS: Urine Appearance Clear; Urine Bilirubin Negative (Negative); Urine Blood Negative (Negative); Urine Color Yellow; Urine Glucose Negative (Negative); Urine Ketones Negative (Negative); Urine Nitrite Negative (Negative); Urine Protein Negative (Negative); Urine Specific Gravity 1.011 (1.010-1.030); Urine Urobilinogen Negative (Negative)
[2019-09-18] MEDS ORDERED: Ondansetron INJ* 2 MG/ML VIAL IV PRN (20:08)
[2019-09-18] MEDS ORDERED: NS 0.9% 1000 ML** 1,000 ML IV SCH (20:15)
[2019-09-18] MEDS: Acetaminophen TAB* 325 MG PO PRN (20:21)
[2019-09-18 20:26] LABS: INR 1.14 (0.82-1.09)
[2019-09-18] MEDS ORDERED: Iohexol 350* (CONTRAST) 500 ML MDV IV ONE ×2 (20:45→21:25)
[2019-09-18] MEDS ORDERED: Atorvastatin* 10 MG TAB PO SCH (21:00)
--- NOTE | 2019-09-18 21:58 | HP ---
CC: Dr. Berry; Dr. Miles; Dr. Treviño* HISTORY AND PHYSICAL: DATE OF ADMISSION: 09/18/19 PRIMARY CARE PROVIDER: Dr. Berry. MY ATTENDING PHYSICIAN WHILE IN THE HOSPITAL: Dr. Dyana Hwang* (report being dictated by Navneet Schultz NP) CONSULTING NEUROLOGIST: Dr. Treviño. CHIEF COMPLAINT: 1. Lightheadedness. 2. Presyncope. 3. Blurry vision. HISTORY OF PRESENT ILLNESS: Mr. Spann is a 74-year-old male patient who carries a history of hypertension; hyperlipidemia; aortic stenosis status post tissue valve replacement of the aortic valve; history of CAD; AFib, postoperatively after valve replacement; BPH; history of syncope and bradycardia status post pacemaker approximately a year ago, who comes in today stating that about a month ago, he noticed that he was having bilateral calf cramping tenderness mostly at night to the point where he went to urgent care, was seen there, had sonograms of the legs which were negative. He says that because of this he has been taking 2 Tylenol daily as needed for the calf pain which tends to help. He did have leg swelling, he said mostly of the right leg about a month ago, but that has subsequently resolved. He says his appetite has been down, in addition to this he has had about a 10-pound weight loss. More pressing over the last couple weeks, he has been having intermittent right blurry vision. He says it generally involves the entire visual field of his right eye. It is intermittent, lasting 5 to 8 minutes. He says that he has not had any facial drooping, no numbness or tingling, no weakness to the upper or lower extremities. No trouble with speech. He said tonight he was concerned because he was feeling lightheaded. He felt like he was going to faint. He was sitting at his table. He denied having any chest pain. No shortness of breath. He had no palpitations. No fevers or chills. No nausea, vomiting or diarrhea reported. No myalgias with the exception of having the calf tenderness. He was concerned because of the blurry vision and the lightheadedness and came into the ER. His pacemaker was interrogated which did not show any events. It was noted that he had a mildly elevated white count. His troponin was mildly elevated and because of these findings we were asked to evaluate for admission. PAST MEDICAL HISTORY: Significant for: 1. Hypertension. 2. Hyperlipidemia. 3. Aortic stenosis status post aortic valve replacement which is tissue. 4. CAD, he has had a 40% stenosis from the RCA with his preaortic valve cath. 5. Atrial fibrillation postoperatively. He was cardioverted. He has not been on blood thinners. 6. BPH. 7. 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 PAST SURGICAL HISTORY: 1. Pacemaker placement. 2. He has had event monitor in the past. 3. Aortic valve replacement. 4. Tonsillectomy. 5. Vasectomy. 6. Cholecystectomy. 7. Hernia repair. HOME MEDICATIONS: According to the patient include: 1. Metoprolol succinate 25 mg p.o. q.a.m. 2. Magnesium 400 mg p.o. twice a day. 3. Lipitor 30 mg at bedtime. 4. Aspirin 81 mg daily. 5. Tylenol 325 to 650 mg every 4 hours as needed. ALLERGIES TO MEDICATIONS: Include none, but he is allergic to MOLD, POLLEN, RAG WEED. FAMILY HISTORY: His mother at the age of 94. She had a history of cancer. His father had heart disease and hypertension. SOCIAL HISTORY: He is an ex-smoker. He quit when he was 20. He does drink 1 drink rarely. Surrogate decision-maker is his , Nydia. REVIEW OF SYSTEMS: There is no documented fever. He does admit to 10-pound weight loss. He denies having any double vision. He does admit to blurry vision of the right eye. He denies having any abdominal pain. No nausea, no vomiting, no dysuria, no frequency. There has been no seizure, no loss of consciousness. He did admit to lightheadedness but no sense of the room spinning. No abdominal pain. No fevers, chills. Again, there is no loss of consciousness and no seizure like activity was reported. Review of 14 systems completed, all others negative. PHYSICAL EXAMINATION GENERAL: At this time, Mr. Spann is a 74-year-old male patient. He is sitting in the ED stretcher. He does not appear to be in any acute distress. He is awake. He is alert. He is oriented x3. VITAL SIGNS: Blood pressure 150/85, pulse 72, respirations 18, O2 sat 99% on room air, temperature 97.8. HEENT: Head: Atraumatic and normocephalic. Eyes: EOMs intact. Sclerae anicteric, not pale. Throat: Oral mucosa appears to be moist. No oropharyngeal erythema. NECK: Supple. LUNGS: Clear to auscultation. No wheezes, rales, or rhonchi. HEART: Heart sounds S1, S2. Regular rate and rhythm. No murmurs, rubs, or gallops. ABDOMEN: Soft, flat, nontender. Bowel sounds were present. EXTREMITIES: Pulses were 2+ throughout. He had no peripheral edema. He is moving all 4 extremities with 5/5 strength. NEUROLOGIC: He is awake, he is alert. His speech is clear. Repetition was intact. Naming objects was intact. Cranial nerves II through XII were intact. He had no gaze deviation and no visual field cuts that I could appreciate on my exam. [id number], [id number] intact bilaterally. He had 5/5 strength distally and proximally to upper and lower extremities. Rapid alternating movements were intact as well. He had good tone throughout. Again speech clear. He had no focal deficits noted on my exam. SKIN: Intact. DIAGNOSTIC STUDIES/LAB DATA: His labs revealed a WBC of 12.0, RBC of 4.09, hemoglobin of 13.0, his baseline is around 14, his hematocrit was 36, his platelet count was 637. His PTT was 33.3. Sodium 131, potassium 4.5, chloride 98, bicarb 26, BUN 19, creatinine 0.72, glucose 109, lactate 1.4, calcium 9, mag 2.0. Total bili 3.4, AST 21, ALT 28, alk phos 114. CK 46. Troponin 0.03. CRP 69. Albumin 3.4. TSH 4.14. Urinalysis was negative. He did have a brain CT obtained which showed no acute intracranial abnormality on CT. He did have a chest x-ray obtained today as well, which showed no acute cardiopulmonary process on radiographs. Postoperative changes as above. Cardiac monitoring devices were removed. He did have an EKG obtained, which when I reviewed it, I did not appreciate any acute infiltrate. He appeared to be actually in sinus rhythm at a rate of 82. He does have P waves. No ST elevations or T wave inversion noted. He did have a PAC. Pacemaker interrogation was obtained which I do not see any episodes of V-tach or any episodes of atrial tachycardia or AFib. His previous EKG was paced, that was from a year ago. Old medical records reviewed. He had a transesophageal echocardiogram in 2018, in which there was no PFO at that time. ASSESSMENT AND PLAN: Mr. Spann is a 74-year-old male patient coming into the ED today with complaints of lightheadedness and blurred vision. He will be admitted under observation status for: 1. Blurred vision. Etiology is unclear. He is not having any headache. He is not having any temporal type pain. Symptomatology is unclear. It could be possible a transient ischemic attack. The symptoms are improving. Last episode was at 1430 today. The episodes have been intermittent in nature. I did discuss the case with Neurology. We will put him on dual platelet therapy in the form of Plavix and aspirin. We will try to get an MRI if his pacemaker is MRI compatible. We will order repeat echo. I will get a CTA of the head and neck. We will get a lipid panel and an A1c and we will continue to follow and I have ordered frequent neuro checks. 2. Lightheadedness. Again, etiology is unclear. We will be getting the CTA of the head and neck. Orthostatic blood pressures were ordered in the ER. We will repeat those. We are getting an echo just to make sure his valve is functioning appropriately, although I do not hear any murmurs and we will continue to follow. He will be placed on telemetry. 3. Leukocytosis. Etiology again unclear. I do not have any obvious sources of infection at this point. We will polanco culture him and follow. I do not have any obvious reason for this. He is not having any other elements of SIRS, heart rate was okay. No fevers noted and he is not tachypneic. Blood pressure is stable. We will monitor. 4. Elevated platelets. We will repeat platelet count in the morning. 5. Weight loss. I will get a Hemoccult and he will need to follow this up with his primary. TSH was checked. 6. Hyponatremia. I am going to give him normal saline. His appetite has been down, it could be some dehydration. I will send off a urine and serum osmol and urine sodium. We will check cortisol if TSH was okay. 7. Elevated troponin. Etiology is unclear. I will trend these and we are getting an echo. EKG was stable. He is not having any signs of chest pain at this point, so we will monitor. He is on aspirin and statin. Holding his beta- joanne in the setting of the possible TIA, I would like to allow for permissive hypertension. 8. Coronary artery disease. Continue aspirin, statin therapy. 9. Hypertension. Again, in the setting of possible transient ischemic attack, I am holding his metoprolol tomorrow morning until we have an imaging of the brain either with a repeat CT in 24 hours or MRI and we could restart. I would also see what the CTA looks like before deciding on restarting this. 10. Hyperlipidemia. Continue statin therapy. We will check lipid panel in the morning. 11. Atrial fibrillation. This was postoperative after a valve replacement. We will monitor and there has been no reported episodes on pacemaker. 12. Benign prostatic hyperplasia. Continue with meds as prescribed. 13. DVT prophylaxis: We will place him on heparin subcu. 14. Bilateral calf pain. Etiology is unclear. I am checking the D-dimer. If his D-dimer is elevated and certainly pulmonary embolism could certainly be causing lightheadedness, although I would be low on my differential as he is not having any shortness of breath, chest pain, and he is not hypoxic. However , if the D-dimer is elevated, I will certainly get a CTA of the chest and possibly repeat the ultrasound in the legs as that was done a month ago. 15. Code status: Full code. 16. Fluids, electrolytes, and nutrition: He can have a heart healthy diet. TIME SPENT: Time spent on the admission 60 minutes, greater than half the time was spent [id number] with the patient obtaining my history of physical; the other half time was spent going over the plan of care with the patient implementing plan of care. I discussed the plan of care with my attending Dr. Hwang, who is in agreement. NAVNEET SCHULTZ, JULISA [id number]/[facility] #: [id number] AARTI
[2019-09-18] MEDS: Heparin VIAL(*) 5000 UNITS/ML VIAL (FIVE THOUSAND) SUBCUT SCH (23:11)
[2019-09-18] MEDS: Magnesium Oxide TAB* 400 MG PO SCH (23:12)
[2019-09-18] MEDS: Clopidogrel TAB* 75 MG PO SCH (23:12)
[2019-09-18] MEDS ORDERED: Atorvastatin* 80 MG TAB PO SCH (23:45)
[2019-09-19] MEDS: Acetaminophen TAB* 325 MG PO PRN ×2 (02:11→08:34)
[2019-09-19] MEDS: Heparin VIAL(*) 5000 UNITS/ML VIAL (FIVE THOUSAND) SUBCUT SCH ×2 (06:51→14:08)
[2019-09-19 07:35] LABS: ABS Basophils 0.1 10^3/ul (0-0.2); ABS Eosinophils 0.3 10^3/ul (0-0.6); ABS Lymphocytes 1.9 10^3/ul (1.0-4.8); ABS Monocytes 1.3 10^3/ul (0-0.8); ABS Neutrophils 8.2 10^3/ul (1.5-7.7); Eosinophil % 2.5 %; Hematocrit 35 % (42-52); Lymphocyte % 16.5 %; Mean Corpuscular HGB Conc 35 g/dL (31-36); Mean Corpuscular Hemoglobin 31 pg (27-31); Mean Corpuscular Volume 88 fL (80-94); Nucleated Red Blood Cells % 0.1; Platelet Count 617 10^3/uL (150-450); Red Blood Count 3.91 10^6 /uL (4.18-5.48); Red Cell Distribution Width 14 % (10-15); White Blood Count 11.8 10^3/uL (3.5-10.8)
[2019-09-19 07:52] LABS: BUN/Creatinine Ratio 17.7 (8-20); Calcium 8.1 mg/dL (8.6-10.3); EGFR African American 153.4 (>60); EGFR Non-African American 126.8 (>60); HDL Cholesterol 32.8 mg/dL; Potassium 4.2 mmol/L (3.5-5.0)
[2019-09-19] MEDS: Clopidogrel TAB* 75 MG PO SCH (08:34)
[2019-09-19] MEDS: Magnesium Oxide TAB* 400 MG PO SCH (08:35)
[2019-09-19] MEDS ORDERED: Aspirin EC TAB* 81 MG TAB.EC PO SCH (09:00)
--- NOTE | 2019-09-19 09:48 | PN ---
Subjective Date of Service: 09/19/19 Interval History: Pt is alert and oriented x 3. states that currently he is feeling ok however he continues to have minor pain in left foot. Also reports that he experiences transient blurred vision in right eye still. Pt reports that his bowel habits are very irregular and hes been experiencing some constipation. Pt denies any chest pain, SOB, Dizziness, or headaches. Family History: Unchanged from Admission Social History: Unchanged from Admission Past Medical History: Unchanged from Admission Objective Active Medications: Acetaminophen (Tylenol Tab*) 650 mg PO Q4H PRN PRN Reason: PAIN - MILD Last Admin: 09/19/19 08:34 Dose: 650 mg Aspirin (Aspirin Ec Tab*) 81 mg PO QAM [facility] Last Admin: 09/19/19 08:35 Dose: 81 mg Atorvastatin Calcium (Lipitor*) 80 mg PO BEDTIME [facility] Last Admin: 09/18/19 23:48 Dose: 80 mg Clopidogrel Bisulfate (Plavix Tab*) 75 mg PO DAILY [facility] Last Admin: 09/19/19 08:34 Dose: 75 mg Heparin Sodium (Porcine) (Heparin Vial(*)) 5,000 units SUBCUT Q8HR [facility] Last Admin: 09/19/19 06:51 Dose: 5,000 units Sodium Chloride (Ns 0.9% 1000 Ml) 1,000 mls @ 100 mls/hr IV PER RATE [facility] Last Admin: 09/19/19 00:00 Dose: 100 mls/hr Magnesium Oxide (Magox 400 Tab*) 400 mg PO BID [facility] Last Admin: 09/19/19 08:35 Dose: 400 mg Ondansetron HCl (Zofran Inj*) 4 mg IV Q6H PRN PRN Reason: NAUSEA Vital Signs - 8 hr 09/19/19 09/19/19 09/19/19 01:57 03:29 07:46 Temperature 98.9 F 97.6 F 97.7 F Pulse Rate 100 85 78 Respiratory 14 16 18 Rate Blood Pressure 148/86 143/83 152/81 (mmHg) O2 Sat by Pulse 96 100 100 Oximetry Oxygen Devices in Use Now: None Appearance: Elderly gentleman appearing stated age laying in bed watching TV. Does not appear to be in any distress. Eyes: No Scleral Icterus, PERRLA Ears/Nose/Mouth/Throat: NL Teeth, Lips, Gums, Clear Oropharnyx, Mucous Membranes Moist Neck: NL Appearance and Movements; NL JVP, Trachea Midline Respiratory: Symmetrical Chest Expansion and Respiratory Effort, Clear to Auscultation Cardiovascular: NL Sounds; No Murmurs; No JVD, RRR, - - +1 nonpitting edema left foot. +2 pedal pulses bilat. no edema right foot Lymphatic: No Cervical Adenopathy Extremities: No Clubbing, Cyanosis Skin: No Rash or Ulcers, No Nodules or Sclerosis Neurological: Alert and Oriented x 3, NL Sensation, NL Muscle Strength and Tone Result Diagrams: 09/19/19 06:39 09/19/19 06:39 Assess/Plan/Problems-Billing Assessment: 74 yom patient with medical hx significant for HTN, HLD, Afib, BPH that presented to ED last evening for c/o blurred vision R eye, Lightheaded, and 10# weight loss over the last month. - Patient Problems (1) Blurred vision, right eye Current Visit: Yes Comment: -Intermittant blurred vision lasting just 5-8 minutes at a time -presently vision is normal, KIMBERLY, EOM's intact -Neuro consult with Dr. Treviño AM of 09/18 Dr. Treviño -Brain CT negative for abnormalities -CTA Head/Neck- 50% stenosis Lft ICA, 75% stenosis Rt ICA, 50% stenosis L subclavian art. Proximal right vertebral artery occlusion (2) Lightheaded Current Visit: Yes Comment: -VSS -pt does not demonstrate orthostatic blood pressure changes. -Denies chest pain, no focal neuro defs. Paced rhythm (3) Leukocytosis Current Visit: Yes Comment: -Afebrile, WBC 11.8 slight improvement from ED where WBC was 12.0 -Pt is without other signs of infection. Pt denies any open wounds, denies contact with ticks. Denies urinary sx. -CRP elevated 69.64. -Waiting on results of blood cultures (4) Elevated platelet count Current Visit: Yes Comment: -Likely due to underlaying inflammatory response with leukocytosis, and elevated CRP. will continue to monitor. Initial measurement (5) Weight loss Current Visit: Yes Comment: -pt reports unexplained 10 pound weight loss over last month (6) Hyponatremia Current Visit: Yes Comment: -Improving with IVF -Na presently 134 -Cortisol level normal for PM draw -Will continue IVF NS (7) Afib Current Visit: Yes Comment: -Pacer controlled -Will start patient on DAPT on discharge x 30days then resume ASA only. (8) Elevated troponin Current Visit: Yes Comment: -Have stablized at 0.02 (9) HTN (hypertension) Current Visit: Yes Comment: -Metoprolol was held for concern that pt was becoming hypotensive. Will be restarted upon DC (10) HLD (hyperlipidemia) Current Visit: Yes Comment: -Well controlled on atorvastatin (11) DVT prophylaxis Current Visit: Yes Comment: -HSQ (12) Full code status Current Visit: Yes Status and Disposition: Guarded
--- NOTE | 2019-09-19 11:06 | CONS ---
CC: Dr. Berry; Dr. Miles CONSULTATION REPORT: DATE OF CONSULT: 09/19/19 REASON FOR CONSULT: Some lightheadedness with some blurry vision in the right eye and an episode of syncope about a month ago. HISTORY OF PRESENT ILLNESS: Mr. Spann is a very nice 74-year-old gentleman who has a complicated cardiac history including a history of aortic stenosis, status post tissue valve replacement with subsequent development of AFib postoperatively, who had cardioversion and apparently he has not had any further AFib. He also has a pacemaker, history of coronary artery disease, hyperlipidemia, and he does have a history of some bradycardia, which precipitated the pacemaker implantation. The patient states that over the last several weeks, he has noticed some intermittent blurry vision in his right eye, which is why I was consulted. He states that the symptoms come and go. There are no bright spots or dark spots. It is more of a blurriness. They last for a few minutes and then resolve. He has no other symptoms associated with that including no adan vision loss, no slurring speech or facial droop. No focal numbness, tingling, or weakness. No palpitations at the time of chest pain. He notes no changes in his hearing or swallowing. Basically, he just gives vision symptoms. There is no prodrome. He does not have a warning and they last for few minutes and then resolve. This has been going on for at least several weeks. He notes that over the last month or so, he has been having some calf pain bilaterally, which he says was strange due to a long hike. He had some leg swelling about a month ago, but that has resolved and he also has lost about 10 pounds in the last month or so. He was concerned that it might be related to his metoprolol. He came in to the hospital yesterday because he was feeling lightheadedness and felt like he might pass out. At the time that he was in the ER, he denied any chest pain or palpitations, any shortness of breath or dyspnea on exertion. He did note the calf pain, but otherwise has not been sick recently. No nausea, vomiting, diarrhea, or constipation. No fevers or chills. No head trauma or falls. He did have an episode of blurry vision lasting about 5 minutes. His pacemaker in the ER was interrogated and showed no evidence of recent atrial fibrillation or any events. His white count was elevated and his troponin was mildly elevated as well, so he was admitted to the hospital. I was consulted for his episode of blurry vision concerning for possible amaurosis fugax given his history. He did have subsequent studies done. 1. Venous Doppler study of the legs showed no acute DVT. 2. He had a chest and thorax CT angiogram, which showed no evidence of a pulmonary embolism. He had a 5-mm pulmonary nodule in the right posterior costophrenic, repeat 1 year, atherosclerotic disease, and coronary artery calcification and aortic valve replacement. 3. He had a head CT angiogram, it showed some diffuse atherosclerotic disease including 75% stenosis at the origin of the right internal carotid, 50% stenosis at the origin of the left internal carotid, at least 50% stenosis near the origin of the right subclavian artery with extensive atherosclerotic disease. His right vertebral artery is occluded, but reconstitutes in the mid V2 segment. He had no obvious large vessel occlusions or disease. He did have diminutive left MCA, however, opacifies with contrast. No aneurysms were identified. 4. Chest x-ray showed no acute cardiopulmonary process, postoperative changes, and cardiac monitoring device, which had been removed. 5. Brain CT done showed no acute intracranial abnormality. PAST MEDICAL HISTORY: As noted above. He does have as noted coronary artery disease with reported 40% stenosis from the right RCA with his preaortic valve cath. 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 PAST SURGICAL HISTORY: Includes the aortic valve replacement, cholecystectomy, hernia repair, vasectomy, tonsillectomy, pacemaker. MEDICATIONS AT HOME: 1. Metoprolol 25 mg p.o. in the a.m. 2. Magnesium 400 mg twice a day. 3. Lipitor 30 mg at bedtime. 4. Aspirin 81 mg a day. 5. Tylenol p.r.n. ALLERGIES: No medicine allergy, but he does note allergies to POLLENS. FAMILY HISTORY: Mother with cancer. Father with heart disease. SOCIAL HISTORY: Smoker as a young man, but quit when he was about 20 years old. Rare alcohol use. REVIEW SYSTEMS: Review of systems in 14-organ systems as noted above, otherwise negative. On tele, overnight no episodes of atrial fibrillation. PHYSICAL EXAMINATION: Vital Signs: Temperature 97.6, pulse rate of 85, respiratory rate of 16, O2 sat of 100%, blood pressure 143/83. In general, he is a well-nourished, well-developed gentleman, lying in his hospital bed. He is sleeping, but awakens, very pleasant. He got his on the phone, who spoke with me as well, Nydia. HEENT: He is normocephalic, atraumatic. Sclerae anicteric. Mucous membranes are moist. Oropharynx is clear. Nares are patent. Neck is supple. No thyromegaly. No carotid bruits. No meningismus. Chest: Clear to auscultation bilaterally. Cardiovascular: Regular rate and rhythm without murmurs. Abdomen: Nontender, nondistended. Extremities: No clubbing, cyanosis, or edema. His skin is warm and dry. On neurologic exam, he is awake, alert, oriented x3. His speech is fluent. There is no dysarthria. Repetition is intact. Recall of recent and remote events is intact. Vocabulary is intact. His mood is dysthymic. Affect, mood congruent. Cranial Nerves: Pupils were equal, round and reactive to light and accommodation. Extraocular muscles are intact. Visual polk are full to confrontation. There is no nystagmus. No ptosis or diplopia. Facial sensation is intact to light touch. His face is symmetric. His eyeball raise is symmetric. Hearing is intact. Tongue is midline. Palate raises symmetrically. Motor Exam: Spontaneously moving all extremities antigravity with good tone and bulk, 5/5 throughout. There is no drift in the upper or lower extremities. DTRs are 2+ and symmetric in the upper and lower extremities with equivocal Babinski's. Sensation is intact to light touch and pinprick throughout. There is no neglect. Hzjeml-ta-socl and rapid alternating movements were intact as with [id number]-mwec, [id number]. There is no resting tremor and tension tremor or postural tremor appreciated. Gait was not tested at this time, but he has had no problems walking back and forth to the bathroom. DIAGNOSTIC STUDIES/LAB DATA: He had lab work, which included white count of 11.8, down from 12.0 yesterday; hemoglobin of 12.0; hematocrit of 35; platelet count 617; absolute neutrophils of 8.2; absolute monocytes of 1.3. INR of 1.14. D-dimer of 176. Troponin was a little elevated on admission 0.03, but this morning 0.02. BUN and creatinine ratio of 26.4, glucose of 109. Sodium of 131, chloride of 98. Imaging: As noted above. ASSESSMENT AND PLAN: Mr. Spann is a 74-year-old with extensive coronary artery disease, status post aortic valve replacement with postop atrial fibrillation, status post cardioversion with no apparent residual atrial fibrillation. He has a history of junctional bradycardia, status post pacemaker placement with some episodes of presyncope and possible episode of syncope last month. Interrogation of his pacemaker shows no abnormal events recently. He presented to the hospital with some dizziness and he has been having several weeks of right eye blurriness, which comes and goes, lasts for about 5 minutes and then disappears. He says it involves his entire vision. There is no scotoma. He has no history of migraine headaches, and he has no history of permanent vision loss. He also has no other focal neurologic symptoms at that time. His CT angiogram did show 75% stenosis of the right ICA and 50% stenosis of the left ICA. My concern that this is amaurosis fugax or indication of any sort of stroke- like symptom is low given the presentation, length of time, the repetitive symptoms --I think his carotids do warrant followup in 6 months, but I would treat them aggressively, medically at this point. The plan would be to add dual antiplatelet for 30 days and then switch him back to aspirin after that. If we can get an MRI of his brain, we will, but his pacemaker may prevent that. His examination is non-focal and I do not think MRI is essential at this point. If he develops any new neurologic symptoms, we can repeat CT but I would not at this point. Again, suspicion for amaurosis is very low. He needs follow up with his eye doctor as an outpatient. --Echocardiogram has been ordered. I instructed Navneet Schultz NP to increase his Lipitor to 80 mg for medical management and stabilization of any plaques. His hemoglobin A1c will be followed as well. He has no history of diabetes and he is not a smoker. --I think at this point from a neurologic standpoint, we manage medically. The episodes of lightheadedness sound more cardiac in origin to me, I do not think they are necessarily related, they do not happen repeatedly with the vision symptoms, but the medicine team is in the process of working that up. Orthostatic blood pressures will be checked. 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 I would strive for good blood pressure control, midde of the line, in the 120s/80s range and avoid precipitous drops. He will be monitored on telemetry as well for any evidence of A.fib. This has reportedly resolved after ablation but if it reappears, full strength anticoagulation will need to be addressed by cardiology. Mild elevations in troponins have cleared. Betablocker was held lastnight given the CTA findings --He had some elevated platelets and leukocytosis of unclear origin. He denies any recent viral illnesses; cough, fevers, chills. Again, watching that, his white count is better today. I will sign off for now, but remain available should he have any findings on echocardiogram or have any further symptoms. I would like to see him back in my clinic in about 6 weeks. In the meantime, I suggest that he followup with Cardiology as well as his eye doctor. Should he have persistent visual loss, he needs to return to the ER immediately. Thank you for the opportunity to participate in the care of this very interesting patient. [id number]/[facility] #: [id number] AARTI
[2019-09-19] MEDS ORDERED: NS 0.9% 1000 ML** 1,000 ML IV SCH ×2 (11:30)
--- NOTE | 2019-09-19 13:45 | ECHO ---
*[facility]* [place] [address] Fax #: [phone] Transthoracic Echocardiogram Patient: Lucas Spann : 1945 Study Date: 09/19/2019 Age: 74 Gender: M HR: 83 bpm Height: 74 in /188 cm BSA: 2.05 m^2 Weight: 174.6 lb /79.4 kg BMI: 22.5 kg/m^2 *Shrimp Header: Cecily Olson [facility] *Referring Physician: * Navneet SchultzReading Physician: * Betite Lau MD Indications: TIA. History: Atrial fibrillation. Coronary artery disease. Risk factors: Hypertension. Dyslipidemia. Labs, prior tests, procedures, and surgery: Permanent pacemaker system implantation. Aortic valve replacement with a bioprosthetic valve. Conclusions Summary: - Left ventricle: Systolic function is normal. The estimated ejection fraction is 50-55%. - Ventricular septum: Ventricular septal wall motion has a postoperative appearance. - Mitral valve: There is trace regurgitation. - Aortic valve: The bioprosthetic valve appears to be functioning normally. The mean systolic gradient is 15.0 mm Hg. The LVOT to aortic valve VTI ratio is 0.4. The valve area by the velocity-time integral method is 1.20 cm^2. The valve area by the peak velocity method is 1.10 cm^2. - C/t 09/12/2018, stable. Study data: Transthoracic echocardiogram. Procedure: Transthoracic echocardiography was performed. Image quality was fair. Complete 2D, spectral Doppler, and color flow Doppler. Location: Bedside. Patient status: Inpatient. Patient room number: 442 01. Rhythm: Normal sinus rhythm. Findings Left ventricle: The cavity size is normal. Wall thickness is normal. Systolic function is normal. The estimated ejection fraction is 50-55%. Wall motion is normal; there are no regional wall motion abnormalities. There is no consistent Doppler evidence of clinically significant diastolic dysfunction. Right ventricle: The cavity size is mildly dilated. Pacer wire noted in the right ventricle. Systolic function is normal. Ventricular septum: Ventricular septal wall motion has a postoperative appearance. Left atrium: The atrium is mildly dilated. Right atrium: The atrium is moderately dilated. Pacer wire noted in right atrium. Mitral valve: The leaflets are mildly thickened. There is no evidence of stenosis. There is trace regurgitation. Aortic valve: Not well visualized. The bioprosthetic valve appears to be functioning normally. There is no evidence of stenosis. There is no significant regurgitation. Tricuspid valve: The leaflets are normal thickness. There is no evidence of stenosis. There is trace regurgitation. Pulmonic valve: Not well visualized. There is no significant regurgitation. Aorta: The aortic root appears normal. The aortic arch appears normal. Pericardium: There is no significant pericardial effusion. Pulmonary arteries: Systolic pressure is within the normal range. Systemic veins: Inferior vena cava: The vessel is normal in size. There is (>= 50%) respiratory change in the IVC dimension. Measurements Left ventricle Value Ref Aortic valve continued Value Ref MIKE, LAX 5.0 cm 4.2 - 5.8 Peak grad, S 34.0 mm Hg --------- ESD, LAX 3.2 cm 2.5 - 4.0 LVOT/AV, VTI 0.4 --------- FS, LAX 36 % 25 - 43 ratio PW, ED, LAX 0.9 cm 0.6 - 1.0 SHANE, VTI 1.20 cm^2 --------- E', lat montrell, TDI 10.9 cm/sec >=10.0 SHANE, Vmax 1.10 cm^2 - -------- E/e', lat montrell, 9 TDI Mitral valve Value Ref E', med montrell, TDI 10.1 cm/sec >=7.0 Peak E 0.96 m/sec - -------- E/e', med montrell, 10 Peak A 0.74 m/sec ---- ----- TDI Decel time 235 ms --------- E', avg, TDI 10.5 cm/sec PHT 98 ms ---- ----- E/e', avg, TDI 9 <=14 Mean grad, D 2.0 mm Hg - -------- Peak grad, D 4.0 mm Hg --------- LVOT Value Ref Peak E/A ratio 1.3 --------- Diam, S 2.00 cm MVA, PHT 2.2 cm^2 --------- Area 3.1 cm^2 Peak jesse, S 1.03 m/sec Pulmonic valve Value Ref VTI, S 23.0 cm Peak v, S 0.72 m/sec --------- Peak grad, S 4 mm Hg Peak grad, S 2.0 mm Hg --------- Mean grad, S 2 mm Hg SV 73 ml Tricuspid valve Value Ref TR peak v 2.3 m/sec <=2.8 Ventricular septum Value Ref Peak RV-RA grad, 21 mm Hg --------- IVS, ED 0.9 cm 0.6 - 1.0 S Right ventricle Value Ref Aortic root Value Ref MIKE, LAX 3.5 cm Root diam 2.2 cm <4.2 MIKE minor ax, A4C (H) 3.7 cm 1.9 - 3.5 Root max (L) 1.1 cm/m^2 1.3 - 2.1 mid diam/bsa, ED Pressure, S 29 mm Hg Ascending aorta Value Ref Left atrium Value Ref AAo AP diam, S 2.3 cm --------- AP dim, ES (L) 2.60 cm 3.00 - AAo AP diam/bsa, 1.1 cm/m^2 --------- 4.00 S ML dim, A4C 4.1 cm SI dim, A4C 6.0 cm Aortic arch Value Ref Vol/bsa, ES, 1-p 28 ml/m^2 12 - 37 Arch diam 2.8 cm --------- A4C Arch diam/bsa 1.4 cm/m^2 --------- Right atrium Value Ref Decending aorta Value Ref SI dim, ES (H) 6.5 cm 3.4 - 5.3 Karina peak jesse 0.55 m/sec --------- ML dim, ES, A4C (H) 5.1 cm 2.6 - 4.4 Estimated RAP 8 mm Hg Pulmonary artery Value Ref Pressure, S 27.0 mm Hg --------- Aortic valve Value Ref Montrell diam, ED 2.0 cm Inferior vena cava Value Ref Peak v, S 2.9 m/sec Diam 1.2 cm --------- VTI, S 59.0 cm Mean grad, S 15.0 mm Hg Legend: (L) and (H) ann values outside specified reference range. Prepared and electronically signed by Bettie Lau MD 09/19/2019 13:44
[2019-09-19 15:41] VITALS: BP 142/75
--- NOTE | 2019-09-19 20:28 | DS ---
CC: Dr. Jorge Treviño; Dr. Elizabeth Berry; Dr. Lizette Miles; Dr. Casey Hogue* DISCHARGE SUMMARY: DATE OF ADMISSION: 09/18/19 DATE OF DISCHARGE: 09/19/19 PROVIDER: Silvia Bowens NP PRIMARY CARE PROVIDER: Dr. Elizabeth Berry. ATTENDING PHYSICIAN WHILE IN THE HOSPITAL: Dr. Es Adhikari* (dictated by Silvia Bowens NP). PRIMARY DIAGNOSIS: Near syncope and visual disturbance. SECONDARY DIAGNOSES: 1. Hyperlipidemia. 2. Coronary artery disease. 3. Atrial fibrillation, status post pacemaker placement. STUDIES WHILE IN THE HOSPITAL: 1. 09/18/19, EKG: Atrial paced complexes, rate 82. 2. 09/18/19, brain CT: No acute intracranial abnormality. 3. 09/18/19, head CTA: Intracranial atherosclerotic disease with no large vessel occlusion. ANTERIOR M2 division of the left MCA is diminutive; however, the vessel and its downstream branches opacify, anatomic variance as above. 4. 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 5. 09/18/19, transthoracic echocardiogram: Left ventricular systolic function is normal. Estimated ejection fraction is 50% to 55%. Ventricular septum: Ventricular septal wall motion has postoperative appearance. Mitral valve: There is trace regurgitation. Aortic valve: Bioprosthetic valve appears to be functioning normally. The mean systolic gradient is 15 mmHg. The LVOT to aortic valve VTI ratio is 0.4. The valve area by the velocity time integral method is 1.20 cm squared. The valve area by the peak velocity method is 1.[address] 09/12/18: Stable. 7. CTA chest and thorax: No pulmonary embolism. 5-mm pulmonary nodule in the right posterior costophrenic angle. Repeat chest CT in 1 year to document stability. Atherosclerotic disease and coronary artery calcification, aortic valve placement. 8. 09/18/19, venous Doppler study: No acute DVT. CONSULTATIONS WHILE IN THE HOSPITAL: Dr. Jorge Treviño from Neurology. HISTORY OF PRESENT ILLNESS AND HOSPITAL COURSE: Mr. 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 The patient arrived to the ER with complaints of bilateral calf cramping which started approximately a month ago, for which he had bilateral sonograms at urgent care, which were negative. Also complained of 10-pound weight loss in the last month. Also complained of having intermittent blurred vision in the right eye lasting just moments when it occurs. The patient denied any other neurological symptoms, but he was concerned because he was feeling lightheaded as if he was going to pass out, faint while he was sitting at table. The patient while in the ER, the patient had pacemaker interrogated, which did not show any significant cardiac events. The patient's blood work was drawn in the ER, which showed white blood cell elevation, leukocytosis of 12, subsequently came down to 11.8 the following day 09/19/19. Hemoglobin and hematocrit were 13 and 36 respectively on arrival; today 12 and 35 respectively. Platelet count was elevated as well 637 on 09/18/19, decreased to 617 on 09/19/19. I suspect that the elevations were due to some inflammatory condition. The patient was without fevers, cough, chills, or other complaints. Denied any rashes or open areas on skin. Also while in the ED, the patient was found to be hyponatremic at 131, which was treated with 1 L of normal saline. Sodium did elevate to 134. I suspected that the patient has had decreased appetite for the last month and suspect that he did become dehydrated leading to hyponatremia. The patient' s cortisol level was checked on 09/18/19, level recorded at 12.61. Thyroid was also checked 09/18/19 at 4.14. In concern with possible embolic event, cholesterol levels were assessed as well. Triglycerides of 88, total cholesterol was 102, LDL was 52, HDL 32.8 showing adequate control on atorvastatin. CT of head did not reveal acute intracranial abnormality; however , CTA head and neck did show 75% stenosis near the origin of the right internal carotid artery and 50% stenosis near the origin of the left internal carotid artery and at least 50% stenosis near the origin of the right subclavian artery and extensive atherosclerotic disease, for which Dr. Treviño was consulted and with his consult, Dr. Treviño does not feel that his complaints are neurological in origin. He does, however, believe they may be cardiac in origin. He suggested that the patient be placed on DAPT therapy for 30 days, Plavix and aspirin, and then after 30 days, discontinue Plavix and continue aspirin only. The patient should follow up with Dr. Miles and his behavioral health therapist as well as Dr. Treviño in 6 weeks for reevaluation. Also, while in the hospital, the patient had venous Doppler study completed, which did not reveal any DVTs. Transthoracic echo showed EF of 50% to 55%. Compared to transthoracic echo from 09/12/18, the patient remained stable. Also on admission to the hospital, the patient's metoprolol was held on the morning of 09/19/19 in the event that the patient had TIA. Metoprolol dose was held for permissive hypertension. Dr. Treviño believes that an MRI is warranted based on findings on the CTA of vessel occlusions; however, due to pacemaker, the patient was unable to obtain MRI today. Per Dr. Treviño, MRI is not necessarily essential at this point to his belief that the origin of the patient's issues is not neurological. Based on the findings of all diagnostic studies, the patient has been determined stable for discharge and the patient agrees with plan to discharge today. PHYSICAL EXAMINATION: Please refer to progress note on 09/19/19. Mr. Spann is stable for discharge. Most recent vital signs, 97.9 for temp, 79 for heart rate, 14 respirations, 99% on room air, 142/75. DISCHARGE MEDICATIONS: Changed Medications and Added: 1. Atorvastatin 80 mg by mouth at bedtime (previously 40 mg by mouth at bedtime ). 2. Clopidogrel 75 mg p.o. daily x30 days. Continued Medications: 1. Aspirin 81 mg p.o. q. a.m. 2. Magnesium oxide 400 mg p.o. b.i.d. 3. Acetaminophen 325 mg to 650 mg p.o. q.4 hours as needed for pain. 4. Metoprolol succinate XL 25 mg p.o. q. a.m. DISCHARGE PLAN: ACTIVITY: As tolerated. Be sure to change positions slowly, but in the hospital he did not have evidence of hypotension with position changes; however , this does not mean the blood pressure does not drop when he changed positions periodically. If the blood pressure does decrease enough, it could cause him to momentarily lose consciousness and fall. Lipitor is increased to 80 mg by mouth daily as this will help stabilize any plaques that have developed new vasculature, thereby increasing stroke prevention. Plavix has been added to the medication regimen for 30 days as suggested by Dr. Treviño. After 30 days, you should resume 81 mg aspirin only. You should follow up with your behavioral health therapist, Dr. Miles in the 2 weeks, call for an appointment. Please follow up with Dr. Treviño in the next weeks and if he develops any chest pain, shortness of breath, increased dizziness, fever or chills, please return to nearest emergency department. DISCHARGE CONDITION: Stable. DISCHARGE DISPOSITION: Home. This is a summarized report of complex medical history and hospital stay. For further details , please see the entire medical record. TIME SPENT: Time spent on this discharge is approximately 45 minutes. SILVIA BOWENS, JULISA [id number]/CPS #: [id number]
== END 2019-09-19 17:35 | disposition home or self-care (01) ==
LOC: ED 15:28 → MEDTELE 19:59
PROVIDERS: ADMIT Hospitalist; ATTEND Internal Medicine
DX: R55 Syncope and collapse (principal); H53.9 Unspecified visual disturbance; R42 Dizziness and giddiness; E78.5 Hyperlipidemia, unspecified; I25.10 Atherosclerotic heart disease of native coronary artery without angina pectoris; I48.91 Unspecified atrial fibrillation; D72.829 Elevated white blood cell count, unspecified; I10 Essential (primary) hypertension; N40.0 Benign prostatic hyperplasia without lower urinary tract symptoms; M79.669 Pain in unspecified lower leg; E78.00 Pure hypercholesterolemia, unspecified; E87.1 Hypo-osmolality and hyponatremia; Z79.82 Long term (current) use of aspirin; Z95.0 Presence of cardiac pacemaker; Z79.899 Other long term (current) drug therapy; R63.4 Abnormal weight loss; Z86.79 Personal history of other diseases of the circulatory system; Z95.4 Presence of other heart-valve replacement; Z87.891 Personal history of nicotine dependence; Z86.73 Personal history of transient ischemic attack (TIA), and cerebral infarction without residual deficits
CPT/HCPCS: 36415; 70450; 70496; 70498; 71046; 71275; 80048; 80053; 80061; 81003; 82272; 82533; 82550; 83036; 83605; 83735; 83880; 83930; 83935; 84300; 84443; 84484; 85025; 85379; 85610; 85730; 86140; 87040; 93005; 93306; 93970; 96372; 99284; A9270-GY; G0378; J1644; Q9967